=== PATIENT | male | born 1940 | race Caucasian/White ===

== ENCOUNTER 2017-06-27 20:22 | Emergency (ER) | payer MEDICARE, OTHER ==
[2017-06-27] MEDS ORDERED: MORPHINE SULFATE 2 MG INJ IV ONE (20:42)
[2017-06-27] MEDS ORDERED: BABY ASPIRIN 81 MG CHEW PO ONE (20:42)
--- NOTE | 2017-06-27 20:52 | ERPHSYRPT ---
- History of Present Illness Time Seen by Provider: 06/27/17 20:34 Historian: patient Exam Limitations: no limitations Patient Subjective Stated Complaint: CP x 45 mionutes. staes has been outside working all day. sdenies cough,fever. Triage Nursing Assessment: alert and oriented with onset CP 45 minutes [employer]. lungs clear vbilaterally. pain on palpation to right upper chest, non radiating. denies n/v diaphoresis. no swelling notes. Physician History: 76 y/o male with history of CAD with stents, bowel obstruction, HTN and DM comes to the ER with complaints of right sided chest pain that started 45 mins prior to arrival. Pt describes the pain as sharp, constant, 6/10, and not relieved after taking nitroglycerin. Pt has been off all of his meds, including ASA and plavix due to insurance reasons. Pt denies any fever, chills, shortness of breath, dizziness, palpitations, headache, nausea or vomiting. Timing/Duration: today Activities at Onset: none Quality: sharpness Location: other (right sided) Chest Pain Radiation: no radiation Severity of Pain-Max: moderate Severity of Pain-Current: moderate Modifying Factors: Improves With: nothing Associated Symptoms: denies symptoms Prior Chest Pain/Cardiac Workup: heart attack Nitro Today/Relief: 0.4 mg x 2, no relief Aspirin Treatment Today: no aspirin today Allergies/Adverse Reactions: cilastatin sodium [From Primaxin IV] Allergy (Severe, Verified 08/24/16 16:26) Hives codeine Allergy (Mild, Verified 08/24/16 16:26) imipenem [From Primaxin IV] Allergy (Mild, Verified 08/24/16 16:26) meperidine HCl [From Demerol] Allergy (Mild, Verified 08/24/16 16:26) Home Medications: Albuterol 2.5 mg/3 ml Neb [Proventil 2.5 mg/3 ml Neb] 2.5 mg IH UD PRN 07/18 [History] Albuterol Sulfate [Proair Hfa] 2 puff IH UD PRN 04/13/15 [History] Aspirin 81 gm Chew [Baby Aspirin 81 mg Chew] 81 mg PO DAILY 04/13/15 [ History] Atorvastatin Calcium [Lipitor 40Mg] 40 mg PO HS 04/13/15 [History] Fluticasone/Salmeterol Disc [Advair 250-50 Diskus 14 Dose] 1 each IH UD PRN 04/13/15 [History] Folic Acid 1 mg PO DAILY 04/13/15 [History] Furosemide [Lasix] 40 mg PO DAILY 04/13/15 [History] Metoprolol Succinate 50 mg [Toprol Xl 50 MG] 50 mg PO DAILY 04/13/15 [ History] Potassium Chloride 10 Meq Tab* [Klor Con 10 MEQ] 10 meq PO DAILY 04/13/15 [ History] Pramipexole Di-HCl [Mirapex] 0.5 mg PO UD 04/13/15 [History] Sitagliptin Phos/Metformin HCl [Janumet Xr 100-1,000 mg Tablet] 1 each PO HS 07/18 [History] Thiamine HCl 100 mg [Vitamin B-1 100 mg] 100 mg PO DAILY 04/13/15 [History ] Hx Tetanus, Diphtheria Vaccination/Date Given: Yes Hx Influenza Vaccination/Date Given: Yes Hx Pneumococcal Vaccination/Date Given: No Immunizations Up to Date: Yes - Review of Systems Constitutional: No Fever, No Chills Eyes: No Symptoms Ears, Nose, & Throat: No Symptoms Respiratory: No Cough, No Dyspnea Cardiac: Chest Pain, No Edema, No Palpitations, No Syncope, No Orthopnea Abdominal/Gastrointestinal: No Abdominal Pain, No Nausea, No Vomiting, No Diarrhea Genitourinary Symptoms: No Dysuria Musculoskeletal: No Back Pain, No Neck Pain Skin: No Rash Neurological: No Dizziness, No Focal Weakness, No Sensory Changes Psychological: No Symptoms Endocrine: No Symptoms All Other Systems: Reviewed and Negative - Past Medical History Pertinent Past Medical History: Yes Neurological History: Peripheral Neuropathy ENT History: No Pertinent History Cardiac History: Coronary Artery Disease Respiratory History: COPD, Other Endocrine Medical History: Other Musculoskeletal History: Fractures GI Medical History: Other (as notedhistory of present illness) History: No Pertinent History Psycho-Social History: Other (Alcohol use) Other Medical History: states stents x 3 and angioplasty - Past Surgical History Past Surgical History: Yes Neuro Surgical History: No Pertinent History Cardiac: Angioplasty, Cardiac Catheterization Respiratory: No Pertinent History Gastrointestinal: Colon Resection Genitourinary: No Pertinent History Musculoskeletal: Orthopedic Surgery Male Surgical History: No Pertinent History Other Surgical History: back surgery, - Social History Smoking Status: Never smoker Exposure to second hand smoke: No Alcohol Use: yes Drug Use: marijuana Patient Lives Alone: No Significant Family History: heart disease, hypertension - Nursing Vital Signs Nursing Vital Signs: Initial Vital Signs Pulse Rate 68 06/27/17 20:25 Respiratory Rate 18 06/27/17 20:25 Blood Pressure 148/68 06/27/17 20:25 O2 Sat by Pulse Oximetry 95 06/27/17 20:25 Pain Scale Pain Intensity 1 - Physical Exam General Appearance: no apparent distress, alert Eye Exam: PERRL/EOMI, eyes nml inspection Ears, Nose, Throat Exam: normal ENT inspection, moist mucous membranes Neck Exam: normal inspection, non-tender, supple, full range of motion Respiratory Exam: normal breath sounds, chest tenderness, lungs clear, No respiratory distress Cardiovascular Exam: regular rate/rhythm, normal heart sounds Gastrointestinal/Abdomen Exam: soft, No tenderness, No mass Back Exam: normal inspection, No CVA tenderness, No vertebral tenderness Extremity Exam: normal inspection, normal range of motion Neurologic Exam: alert, oriented x 3, cooperative, normal mood/affect, sensation nml, No motor deficits Skin Exam: normal color, warm, dry SpO2: 95 Oxygen Delivery: Room Air - Course Nursing assessment & vital signs reviewed: Yes EKG Interpreted by Me: RATE (HR 67), NORMAL AXIS, NORMAL INTERVALS, NORMAL QRS, NORMAL ST-T Ordered Tests: Active Orders 24 hr Category Date Time Status Statistics Tutor STAT Care 06/27/17 20:43 Active IV Insertion STAT Care 06/27/17 20:42 Active CHEST 1 VIEW (PORTABLE) Stat Exams 06/27/17 20:42 Taken CBC W DIFF Stat Lab 06/27/17 21:14 Completed CK-Creatinine Phosphokinase Stat Lab 06/27/17 21:14 Completed CMP Stat Lab 06/27/17 21:14 Completed D-DIMER QUANTITATION Stat Lab 06/27/17 21:14 Completed PROTIME WITH INR Stat Lab 06/27/17 21:14 Completed PTT Stat Lab 06/27/17 21:14 Completed TROPONIN Q3H Lab 06/27/17 21:14 Completed TROPONIN Q3H Lab 06/27/17 23:45 Ordered TROPONIN Q3H Lab 06/28/17 02:45 Ordered TROPONIN Q3H Lab 06/28/17 05:45 Ordered TROPONIN Q3H Lab 06/28/17 08:45 Ordered Medication Summary Discontinued Medications Generic Name Dose Route Start Last Admin Trade Name Ted PRN Reason Stop Dose Admin Aspirin 324 mg 06/27/17 20:42 06/27/17 21:03 Baby Aspirin 81 Mg Chew PO 06/27/17 20:43 324 mg STAT ONE Administration Aspirin Confirm 06/27/17 21:02 Baby Aspirin 81 Mg Chew Administered 06/27/17 21:03 Dose 324 mg .ROUTE .STK-MED ONE Morphine Sulfate 2 mg 06/27/17 20:42 06/27/17 21:03 Morphine Sulfate 2 Mg Inj IV 06/27/17 20:43 2 mg STAT ONE Administration Morphine Sulfate Confirm 06/27/17 21:02 Morphine Sulfate 2 Mg Inj Administered 06/27/17 21:03 Dose 2 mg .ROUTE .STK-MED ONE Lab/Rad Data: Laboratory Result Diagrams 06/27/17 21:14 06/27/17 21:14 Laboratory Results 06/27/17 06/27/17 06/27/17 Range/Units 21:14 21:14 21:14 WBC (4.0-10.5) K/mm3 RBC (4.1-5.6) M/mm3 Hgb (12.5-18.0) gm/dl Hct (42-50) % MCV (78-100) fl MCH (26-32) pg MCHC (32-36) g/dl RDW (11.5-14.0) % Plt Count (150-450) K/mm3 MPV (6-9.5) fl Gran % (36.0-66.0) % Lymphocytes % (24.0-44.0) % Monocytes % (0.0-12.0) % Eosinophils % (0.00-5.0) % Basophils % (0.0-0.4) % Basophils # (0-0.4) INR 1.01 (0.8-3.0) APTT 25.2 (24.1-36.1) SECONDS D-Dimer 436 (0-500) ng/mL Sodium 139 (136-145) mEq/L Potassium 4.5 (3.5-5.1) mEq/L Chloride 104 (98-107) mEq/L Carbon Dioxide 23.5 (21-32) mEq/L Anion Gap 16.0 H (5-15) MEQ/L BUN 14 (9-20) mg/dL Creatinine 1.06 (0.55-1.30) mg/dl Estimated GFR > 60 ML/MIN Glucose 114 H (70-110) MG/DL Calcium 9.0 (8.5-10.1) mg/dL Total Bilirubin 0.30 (0.2-1.0) mg/dL AST 26 (15-37) U/L ALT 45 (12-78) U/L Alkaline Phosphatase 124 H (46-116) U/L Creatine Kinase 327 H (39-308) U/L Troponin I < 0.017 (0.000-0.056) ng/ml Serum Total Protein 6.8 (6.4-8.2) gm/dL Albumin 3.8 (3.4-5.0) g/dL 06/27/ Range/Units 21:14 WBC 6.9 (4.0-10.5) K/mm3 RBC 5.10 (4.1-5.6) M/mm3 Hgb 16.6 (12.5-18.0) gm/dl Hct 49.4 (42-50) % MCV 96.9 (78-100) fl MCH 32.5 H (26-32) pg MCHC 33.6 (32-36) g/dl RDW 13.4 (11.5-14.0) % Plt Count 154 (150-450) K/mm3 MPV 10.7 H (6-9.5) fl Gran % 67.4 H (36.0-66.0) % Lymphocytes % 21.2 L (24.0-44.0) % Monocytes % 8.5 (0.0-12.0) % Eosinophils % 2.6 (0.00-5.0) % Basophils % 0.3 (0.0-0.4) % Basophils # 0.02 (0-0.4) INR (0.8-3.0) APTT (24.1-36.1) SECONDS D-Dimer (0-500) ng/mL Sodium (136-145) mEq/L Potassium (3.5-5.1) mEq/L Chloride (98-107) mEq/L Carbon Dioxide (21-32) mEq/L Anion Gap (5-15) MEQ/L BUN (9-20) mg/dL Creatinine (0.55-1.30) mg/dl Estimated GFR ML/MIN Glucose (70-110) MG/DL Calcium (8.5-10.1) mg/dL Total Bilirubin (0.2-1.0) mg/dL AST (15-37) U/L ALT (12-78) U/L Alkaline Phosphatase (46-116) U/L Creatine Kinase (39-308) U/L Troponin I (0.000-0.056) ng/ml Serum Total Protein (6.4-8.2) gm/dL Albumin (3.4-5.0) g/dL - Progress Progress: improved Progress Note: 06/27/17 22:00 Pt feels better after receiving ASA and morphine for right sided chest pain. The EKG and cardiac enzymes are within normal limits. Pt has tenderness on the right side of his chest which is atypical for coronary disease. Pt has been advised to F/U with his PCP tomorrow. Pt will be given a script for norco and ASA. I have advised the patient to return to the ER if he should have any chest pain. - Departure Time of Disposition: 22:02 Departure Disposition: Home Clinical Impression: Costochondritis Condition: Stable Critical Care Time: Yes Critical Care Time(excluding separately billable procedures): 30-74 minutes Referrals: JEFFERY CASE [Primary Care Provider] - Instructions: Atypical Chest Pain, Costochondritis Additional Instructions: Follow up with your primary care doctor in the morning to restart on your medications. Start taking baby aspirin every morning. Return to the ER if you should have any chest pain, shortness of breath, palpitations or dizziness. Prescriptions: Aspirin 81 gm Chew [Baby Aspirin 81 mg Chew] 81 mg PO DAILY #30 tab.chew Hydrocodone Bit/Acetaminophen [[place] 5-325 Tablet] 1 each PO QID PRN #10 tablet PRN Reason: Pain
[2017-06-27] MEDS ORDERED: BABY ASPIRIN 81 MG CHEW ONE (21:02)
[2017-06-27] MEDS ORDERED: MORPHINE SULFATE 2 MG INJ ONE (21:02)
[2017-06-27 21:21] LABS: BASOPHIL % 0.3 % (0.0-0.4); Eosinophil % 2.6 % (0.00-5.0); Granulocytes % 67.4 % (36.0-66.0); Lymphocytes % 21.2 % (24.0-44.0); Mean Cell Volume 96.9 fl (78-100); Mean Corpuscular Hemoglobin 32.5 pg (26-32); Mean Platelet Volume 10.7 fl (6-9.5); Monocytes % 8.5 % (0.0-12.0); Platelet Count 154 K/mm3 (150-450); Red Cell Distribution Width 13.4 % (11.5-14.0); White Blood Count 6.9 K/mm3 (4.0-10.5)
[2017-06-27 21:33] LABS: INR 1.01 (0.8-3.0); PROTIME 11.2 SECONDS (8.83-12.87)
[2017-06-27 21:36] LABS: PTT 25.2 SECONDS (24.1-36.1)
[2017-06-27 21:41] LABS: ALBUMIN 3.8 g/dL (3.4-5.0); ALKALINE PHOSPHATASE 124 U/L (46-116); BLOOD UREA NITROGEN 14 mg/dL (9-20); CHLORIDE 104 mEq/L (98-107); Carbon Dioxide 23.5 mEq/L (21-32); Glucose 114 MG/DL (70-110); Potassium 4.5 mEq/L (3.5-5.1); SGOT/AST 26 U/L (15-37); SGPT/ALT 45 U/L (12-78); SODIUM 139 mEq/L (136-145); Total Protein 6.8 gm/dL (6.4-8.2)
[2017-06-27 22:05] VITALS: O2SAT 95
[2017-06-27 22:27] VITALS: BP 134/78; PULSE 70
== END 2017-06-27 22:35 | disposition home or self-care (01) ==
LOC: ED 20:22
DX: M94.0 Chondrocostal junction syndrome [Tietze] (principal); I25.10 Atherosclerotic heart disease of native coronary artery without angina pectoris; I10 Essential (primary) hypertension; E11.9 Type 2 diabetes mellitus without complications; R07.89 Other chest pain; Z79.899 Other long term (current) drug therapy
CPT/HCPCS: 36000; 36415; 71010; 80053; 82550; 84484; 85025; 85379; 85610; 85730; 93041; 96374; 99284; J2270; A9270-GY

== ENCOUNTER 2017-10-28 16:05 | Emergency (ER) | payer MEDICARE, OTHER ==
--- NOTE | 2017-10-28 17:41 | ERPHSYRPT ---
- History of Present Illness Time Seen by Provider: 10/28/17 17:30 Source: patient Exam Limitations: no limitations Patient Subjective Stated Complaint: had abd hernia operation 10/19/17 at [facility]. has j/p drain that has quit draining today. [facility] nurse called patient' s surgeon and was instructed to come to er. family states sutures came out of upper abd incision and wound has been draining. also having some drainage from lower abd incision. Triage Nursing Assessment: to room per w/c. skin w/d, color normal. has dressing and binder to abd. dressing has moderate amt of serous drainage. denies any pain except slight soreness around j/p drain. Physician History: The patient is a 77-year-old male with his complaining of drainage from the abdominal hernia surgery he had on October 19. The surgery was done at [facility] by Dr. Rivas for repair of a hernia mesh that had become adherent to the patient's intestines. He had a TRAM drain placed that had been draining 50-70 mL twice a day. Since last night the TRAM drain has only drained 5 mL. Today when the home health nurse came to see the patient, there was significant amount of purulent material that was draining out of a dehisced wound at the suture site and mid abdomen. The patient called the surgeon at [facility] and was instructed to come to the ER for evaluation. The patient did see his surgeon 4 days ago. Timing/Duration: today Severity: moderate Modifying Factors: Improves With: nothing Associated Symptoms: other (wound drainage) Allergies/Adverse Reactions: cilastatin sodium [From Primaxin IV] Allergy (Severe, Verified 10/28/17 16:21) Hives codeine Allergy (Mild, Verified 10/28/17 16:21) imipenem [From Primaxin IV] Allergy (Mild, Verified 10/28/17 16:21) meperidine HCl [From Demerol] Allergy (Mild, Verified 10/28/17 16:21) Home Medications: Albuterol 2.5 mg/3 ml Neb [Proventil 2.5 mg/3 ml Neb] 2.5 mg IH UD PRN 07/18 [History] Albuterol Sulfate [Proair Hfa] 2 puff IH UD PRN 04/13/15 [History] Fluticasone/Salmeterol Disc [Advair 250-50 Diskus 14 Dose] 1 each IH UD PRN 04/13/15 [History] Pramipexole Di-HCl [Mirapex] 0.5 mg PO UD 04/13/15 [History] Cetirizine HCl [Zyrtec] 10 mg PO DAILY 10/28/17 [History] Hx Tetanus, Diphtheria Vaccination/Date Given: Yes Hx Influenza Vaccination/Date Given: Yes Hx Pneumococcal Vaccination/Date Given: Yes - Review of Systems Constitutional: No Fever, No Chills Eyes: No Symptoms Ears, Nose, & Throat: No Symptoms Respiratory: No Cough, No Dyspnea Cardiac: No Chest Pain, No Edema, No Syncope Abdominal/Gastrointestinal: No Abdominal Pain, No Nausea, No Vomiting, No Diarrhea Genitourinary Symptoms: No Dysuria Musculoskeletal: No Back Pain, No Neck Pain Skin: Skin Lesions Neurological: No Dizziness, No Focal Weakness, No Sensory Changes Psychological: No Symptoms Endocrine: No Symptoms Hematologic/Lymphatic: No Symptoms Immunological/Allergic: No Symptoms All Other Systems: Reviewed and Negative - Past Medical History Pertinent Past Medical History: Yes Neurological History: Peripheral Neuropathy ENT History: No Pertinent History Cardiac History: Coronary Artery Disease Respiratory History: COPD, Other Endocrine Medical History: Other Musculoskeletal History: Fractures GI Medical History: Other History: No Pertinent History Psycho-Social History: Other Other Medical History: states stents x 3 and angioplasty - Past Surgical History Past Surgical History: Yes Neuro Surgical History: No Pertinent History Cardiac: Angioplasty, Cardiac Catheterization Respiratory: No Pertinent History Gastrointestinal: Colon Resection Genitourinary: No Pertinent History Musculoskeletal: Orthopedic Surgery Male Surgical History: No Pertinent History Other Surgical History: back surgery, - Social History Smoking Status: Former smoker Exposure to second hand smoke: Yes Alcohol Use: yes Drug Use: marijuana Patient Lives Alone: No Significant Family History: heart disease, hypertension - Nursing Vital Signs Nursing Vital Signs: Initial Vital Signs Temperature 99.1 F 10/28/17 16:16 Pulse Rate 70 10/28/17 16:16 Respiratory Rate 20 10/28/17 16:16 Blood Pressure 111/62 10/28/17 16:16 O2 Sat by Pulse Oximetry 98 10/28/17 16:16 Pain Scale Pain Intensity 0 - Physical Exam General Appearance: no apparent distress, alert Eye Exam: PERRL/EOMI, eyes nml inspection Ears, Nose, Throat Exam: normal ENT inspection, TMs normal, pharynx normal, moist mucous membranes Neck Exam: normal inspection, non-tender, supple, full range of motion Respiratory Exam: normal breath sounds, lungs clear, No respiratory distress Cardiovascular Exam: regular rate/rhythm, normal heart sounds, normal peripheral pulses Gastrointestinal/Abdomen Exam: tenderness, other (There is a large surgical wound of a vertical incision in the mid abdomen that has a open draining wound in the superior aspect of the surgical wound. The drainage is purulent and has a odor to it. There is also some drainage at the dependent portion of the wound through the suture holes. When pressure is applied to the dependent portion of the wound copious amounts of purulent material are expelled from the open wound.) Rectal Exam: not done Back Exam: normal inspection, normal range of motion, No CVA tenderness, No vertebral tenderness Extremity Exam: normal inspection, normal range of motion, pelvis stable Neurologic Exam: alert, oriented x 3, cooperative, normal mood/affect, nml cerebellar function, nml station & gait, sensation nml, No motor deficits Skin Exam: normal color, warm, dry, No rash Lymphatic Exam: No adenopathy SpO2 Interpretation: normal SpO2: 98 Oxygen Delivery: Room Air - CT Exams Abdomen/Pelvis CT Interpretation: Tele-radiologist Report (Post operative changes from prior anterior wall surgery are seen percutaneous drain is identified without evidence of abscess cavity. 4.7 cm poorly defined mass in the anterior right lobe of the liver that was previously described as a hemangioma. Per Dr Ramachandran.) Ordered Tests: Active Orders 24 hr Category Date Time Status IV Insertion STAT Care 10/28/17 17:48 Active ABDOMEN AND PELVIS W/0 CONTRAS [CT] Stat Exams 10/28/17 17:48 Taken BLOOD CULTURE Stat Lab 10/28/17 18:20 Received CBC W DIFF Stat Lab 10/28/17 18:20 Completed CMP Stat Lab 10/28/17 18:20 Completed CULTURE,WOUND Stat Lab 10/28/17 18:27 Received Lactic Acid Stat Lab 10/28/17 18:10 Completed Medication Summary Discontinued Medications Generic Name Dose Route Start Last Admin Trade Name Freq PRN Reason Stop Dose Admin Sodium Chloride 1,000 mls @ 999 mls/hr 10/28/17 17:48 10/28/17 18:18 Sodium Chloride 0.9% 1000 Ml IV 10/28/17 18:48 999 mls/hr .Q1H1M STA Administration Piperacillin Sod/Tazobactam Sod 3.375 gm in 100 mls @ 200 mls/hr 10/28/17 17: 49 10/28/17 18:18 Zosyn 3.375gm/100 Ml D5w IV 10/28/17 18:18 200 mls/hr STAT STA Administration Sodium Chloride Confirm 10/28/17 18:12 Sodium Chloride 0.9% 1000 Ml Administered 10/28/17 18:13 Dose 1,000 mls @ ud .ROUTE .STK-MED ONE Piperacillin Sod/Tazobactam Sod Confirm 10/28/17 18:12 Zosyn 3.375gm/100 Ml D5w Administered 10/28/17 18:13 Dose 3.375 gm in 100 mls @ ud IV .STK-MED ONE Lab/Rad Data: Laboratory Result Diagrams 10/28/17 18:20 10/28/17 18:20 Laboratory Results 10/28/17 10/28/17 10/28/17 Range/Units 18:20 18:20 18:10 WBC 7.2 (4.0-10.5) K/mm3 RBC 4.08 L (4.1-5.6) M/mm3 Hgb 12.9 (12.5-18.0) gm/dl Hct 39.4 L (42-50) % MCV 96.6 (78-100) fl MCH 31.6 (26-32) pg MCHC 32.7 (32-36) g/dl RDW 12.9 (11.5-14.0) % Plt Count 240 (150-450) K/mm3 MPV 9.7 H (6-9.5) fl Gran % 63.8 (36.0-66.0) % Lymphocytes % 19.3 L (24.0-44.0) % Monocytes % 11.1 (0.0-12.0) % Eosinophils % 5.4 H (0.00-5.0) % Basophils % 0.4 (0.0-0.4) % Basophils # 0.03 (0-0.4) Sodium 141 (136-145) mEq/L Potassium 4.2 (3.5-5.1) mEq/L Chloride 105 (98-107) mEq/L Carbon Dioxide 27.9 (21-32) mEq/L Anion Gap 12.6 (5-15) MEQ/L BUN 12 (9-20) mg/dL Creatinine 1.18 (0.55-1.30) mg/dl Estimated GFR > 60 ML/MIN Glucose 121 H (70-110) MG/DL Lactic Acid 0.9 (0.4-2.0) Calcium 8.4 L (8.5-10.1) mg/dL Total Bilirubin 0.70 (0.2-1.0) mg/dL AST 51 H (15-37) U/L ALT 88 H (12-78) U/L Alkaline Phosphatase 180 H (46-116) U/L Serum Total Protein 6.7 (6.4-8.2) gm/dL Albumin 2.6 L (3.4-5.0) g/dL - Progress Progress: unchanged Counseled pt/family regarding: lab results, diagnosis, rad results - Departure Time of Disposition: 20:14 Departure Disposition: Transfer (Transfer to [facility] per Dr Martinez.) Clinical Impression: Surgical wound infection Condition: Stable Critical Care Time: No Referrals: JEFFERY CASE [Primary Care Provider] - Additional Instructions: You have a surgical wound infection. You were given Zosyn 3.375 g and fluids by IV in the ER. You're being transferred to [facility] per Dr. Martinez.
[2017-10-28] MEDS ORDERED: Sodium Chloride 0.9% 1000 ML 1,000 ML IV STA (17:48)
[2017-10-28] MEDS ORDERED: Zosyn 3.375GM/100 Ml D5W 3.375 GM/100 ML IVPB IV STA (17:49)
[2017-10-28] MEDS ORDERED: Zosyn 3.375GM/100 Ml D5W 3.375 GM/100 ML IVPB IV ONE (18:12)
[2017-10-28] MEDS ORDERED: Sodium Chloride 0.9% 1000 ML 1,000 ML ONE (18:12)
[2017-10-28 18:24] LABS: BASOPHIL % 0.4 % (0.0-0.4); Basophil (Absolute #) 0.03 (0-0.4); Eosinophil % 5.4 % (0.00-5.0); Eosinophil (Absolute #) 0.39 (0-0.5); Granulocyte Absolute (ANC) 4.59 (1.4-6.9); Granulocytes % 63.8 % (36.0-66.0); Hematocrit 39.4 % (42-50); Hemoglobin 12.9 gm/dl (12.5-18.0); Lymphocyte (Absolute #) 1.39 (1.0-4.6); Lymphocytes % 19.3 % (24.0-44.0); Mean Cell Volume 96.6 fl (78-100); Mean Corpuscular Hemoglobin 31.6 pg (26-32); Mean Corpuscular Hgb Concent. 32.7 g/dl (32-36); Mean Platelet Volume 9.7 fl (6-9.5); Monocytes % 11.1 % (0.0-12.0); Platelet Count 240 K/mm3 (150-450); Red Blood Count 4.08 M/mm3 (4.1-5.6); Red Cell Distribution Width 12.9 % (11.5-14.0); White Blood Count 7.2 K/mm3 (4.0-10.5)
[2017-10-28 18:52] LABS: ALBUMIN 2.6 g/dL (3.4-5.0); ALKALINE PHOSPHATASE 180 U/L (46-116); ANION GAP 12.6 MEQ/L (5-15); BLOOD UREA NITROGEN 12 mg/dL (9-20); CHLORIDE 105 mEq/L (98-107); Calcium 8.4 mg/dL (8.5-10.1); Carbon Dioxide 27.9 mEq/L (21-32); Creatinine 1 1.18 mg/dl (0.55-1.30); Glucose 121 MG/DL (70-110); Potassium 4.2 mEq/L (3.5-5.1); SGOT/AST 51 U/L (15-37); SGPT/ALT 88 U/L (12-78); SODIUM 141 mEq/L (136-145); Total Protein 6.7 gm/dL (6.4-8.2)
--- NOTE | 2017-10-28 21:19 | XRAY ---
Indication: Suture line pain. Multiple contiguous axial images obtained through the abdomen and pelvis without contrast as ordered. Comparison: August 24, 2016. Lung bases demonstrates minimal bibasilar dependent atelectasis and left fissure thickening. No infiltrate or effusion. Heart is not enlarged. New anterior abdominal wall postoperative changes including percutaneous drainage catheter in situ without walled off fluid collection/abscess. Noncontrasted stomach and bowel loops appear nonobstructed. Again right hemicolectomy with intact anastomosis. No free fluid/air. Again minimal sigmoid diverticulosis. There is a hepatic hypodense lesion in the right lobe of the liver measuring 3.8 x 4.7 cm, previously documented hemangioma. Again a few hepatic/splenic calcified granulomas and small bilateral renal cysts. Remaining liver, gallbladder, pancreas, spleen, adrenal glands, kidneys, ureters, and bladder appear unremarkable for noncontrast exam. There remains mild aortoiliac calcifications without AAA. Osseous structures intact again with mild/moderate degenerative changes throughout the spine and scoliosis. Stable small fatty bilateral inguinal hernias. Impression: 1. New anterior abdominal wall postsurgical changes with drainage catheter in situ. No suspicious fluid collection or abscess. 2. Stable hepatic hemangioma, sigmoid diverticulosis, renal cysts, and small bilateral fatty inguinal hernias. Comment: Preliminary interpretation was made by [facility]. No critical discrepancy. CTDI 23.30
[2017-10-28 22:06] VITALS: BP 132/70; PULSE 72; O2SAT 96
[2017-10-28] MEDS ORDERED: MORPHINE SULFATE 4 MG INJ ONE (22:08)
[2017-10-28] MEDS ORDERED: MORPHINE SULFATE 4 MG INJ IV ONE (22:10)
== END 2017-10-28 22:15 | disposition short-term general hospital (02) ==
LOC: ED 16:05
DX: T81.4XXA Infection following a procedure, initial encounter (principal); Z79.899 Other long term (current) drug therapy
CPT/HCPCS: 36000; 36415; 74176; 80053; 83605; 85025; 87040; 87070; 87077; 87186; 96365; 96374; 99284; 99285; J2270; J2543

== ENCOUNTER 2018-04-06 18:32 | Emergency (ER) | payer MEDICARE, OTHER ==
[2018-04-06] MEDS ORDERED: Rocephin 1000 MG INJ IM ONE (19:25)
--- NOTE | 2018-04-06 19:30 | ERPHSYRPT ---
- History of Present Illness Time Seen by Provider: 04/06/18 19:24 Source: patient Exam Limitations: no limitations Patient Subjective Stated Complaint: pt reports he was bitten on the left knee by a bug of some kind-reports swelling-denies pain-denies draiange-denies fever Triage Nursing Assessment: pt pink warm and [id number] to left knee is swollen nontender to touch-pt ambulatory and weight bearing with no difficutly Physician History: patient presents with skin lesion above right knee for last 2 days. Patient unsure but thought he might have been bitten by insect. States increased redness, swelling and discomfort over past 2 days. Able to move right knee without difficulty. Denies any fever, chills, nausea, vomiting, dizziness or weakness. Patient has been using wound salve on area Timing/Duration: day(s) (2), gradual onset, worse Quality: painful Severity: mild Location: other (R knee) Possible Causes: insect bite Modifying Factors: Improves With: other (wound salve) Associated Symptoms: change in skin texture, other (erythematous), No blisters Allergies/Adverse Reactions: cilastatin sodium [From Primaxin IV] Allergy (Severe, Verified 04/06/18 18:51) Hives vancomycin Allergy (Severe, Verified 04/06/18 18:51) Swelling of Face codeine Allergy (Mild, Verified 04/06/18 18:51) imipenem [From Primaxin IV] Allergy (Mild, Verified 04/06/18 18:51) meperidine HCl [From Demerol] Allergy (Mild, Verified 04/06/18 18:51) Home Medications: Albuterol 2.5 mg/3 ml Neb [Proventil 2.5 mg/3 ml Neb] 2.5 mg IH UD PRN 07/18 [History] Albuterol Sulfate [Proair Hfa] 2 puff IH UD PRN 04/13/15 [History] Fluticasone/Salmeterol Disc [Advair 250-50 Diskus 14 Dose] 1 each IH UD PRN 04/13/15 [History] Pramipexole Di-HCl [Mirapex] 0.5 mg PO UD 04/13/15 [History] Cetirizine HCl [Zyrtec] 10 mg PO DAILY 10/28/17 [History] Hx Tetanus, Diphtheria Vaccination/Date Given: Yes Hx Influenza Vaccination/Date Given: Yes Hx Pneumococcal Vaccination/Date Given: Yes Immunizations Up to Date: Yes - Review of Systems Constitutional: No Fever, No Chills Eyes: No Symptoms Ears, Nose, & Throat: No Symptoms Respiratory: No Symptoms, No Cough, No Dyspnea Cardiac: No Symptoms, No Chest Pain, No Edema, No Syncope Abdominal/Gastrointestinal: No Symptoms, No Abdominal Pain, No Nausea, No Vomiting, No Diarrhea Genitourinary Symptoms: No Symptoms, No Dysuria Musculoskeletal: No Symptoms, No Back Pain, No Neck Pain Skin: Cellulitis, No Rash Neurological: No Dizziness, No Focal Weakness, No Sensory Changes Psychological: No Symptoms Endocrine: No Symptoms All Other Systems: Reviewed and Negative - Past Medical History Pertinent Past Medical History: Yes Neurological History: Peripheral Neuropathy ENT History: No Pertinent History Cardiac History: Coronary Artery Disease Respiratory History: COPD, Other Endocrine Medical History: Other Musculoskeletal History: Fractures GI Medical History: Other History: No Pertinent History Psycho-Social History: Other Male Reproductive Disorders: No Pertinent History Other Medical History: states stents x 3 and angioplasty. restless legs. 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 neck and back fx. borderline diabetic - Past Surgical History Past Surgical History: Yes Neuro Surgical History: No Pertinent History Cardiac: Angioplasty, Cardiac Catheterization Respiratory: No Pertinent History Gastrointestinal: Colon Resection, Other Genitourinary: No Pertinent History Musculoskeletal: Orthopedic Surgery Male Surgical History: No Pertinent History Other Surgical History: back surgery, several abdominal surgeries over 8 years - Social History Smoking Status: Former smoker Exposure to second hand smoke: Yes Alcohol Use: yes Drug Use: none Patient Lives Alone: No Significant Family History: heart disease, hypertension - Nursing Vital Signs Nursing Vital Signs: Initial Vital Signs Temperature 98.7 F 04/06/18 18:48 Pulse Rate 82 04/06/18 18:48 Respiratory Rate 18 04/06/18 18:48 Blood Pressure 144/80 04/06/18 18:48 O2 Sat by Pulse Oximetry 97 04/06/18 18:48 Pain Scale Pain Intensity 0 - Physical Exam General Appearance: no apparent distress, alert Eye Exam: PERRL/EOMI, eyes nml inspection Ears, Nose, Throat Exam: normal ENT inspection, pharynx normal, moist mucous membranes Neck Exam: normal inspection, non-tender, supple, full range of motion Respiratory Exam: normal breath sounds, lungs clear, No respiratory distress Cardiovascular Exam: regular rate/rhythm, normal heart sounds Gastrointestinal/Abdomen Exam: soft, mass, No tenderness Back Exam: normal inspection, normal range of motion, No CVA tenderness, No vertebral tenderness Extremity Exam: normal range of motion, swelling (area approximately 1 cm in diameter above right knee area), tenderness (above right knee area), No limited range of motion Neurologic Exam: alert, oriented x 3, cooperative, normal mood/affect, sensation nml, No motor deficits Skin Exam: normal color, warm, dry, other (raised skin lesion above right knee approximately 1 cm in diameter with surrounding erythema and mild tenderness) SpO2 Interpretation: normal SpO2: 97 Oxygen Delivery: Room Air - Course Nursing assessment & vital signs reviewed: Yes - Progress Progress: unchanged Progress Note: 04/06/18 19:31 we'll give patient Rocephin 1 g IM. We'll prescribe Bactrim/Keflex as outpatient therapy Counseled pt/family regarding: diagnosis - Departure Time of Disposition: 19:32 Departure Disposition: Home Clinical Impression: Cellulitis of right knee Condition: Stable Critical Care Time: No Referrals: JEFFERY CASE [Primary Care Provider] - Instructions: Wound Infection, Cellulitis (Skin Infection), Adult (DC) Additional Instructions: Rx: Bactrim DS/Keflex. May take Motrin/Tylenol for discomfort and fever. Follow-up with your doctor in 2-3 days. Return to ED for worse swelling, redness, pain, fever or any problems Prescriptions: Cephalexin Mh 500 mg [Keflex 500 mg] 500 mg PO QID #40 capsule Sulfamethoxazole/Trimethoprim [Bactrim Ds Tablet] 1 each PO BID 10 Days #20 tablet
[2018-04-06] MEDS ORDERED: Rocephin 1000 MG INJ ONE (19:34)
[2018-04-06 20:07] VITALS: BP 118/93; PULSE 78; O2SAT 95
== END 2018-04-06 20:05 | disposition home or self-care (01) ==
LOC: ED 18:32
DX: L03.115 Cellulitis of right lower limb (principal)
CPT/HCPCS: 96372; 99283; J0696

== ENCOUNTER 2018-06-28 22:39 | Inpatient (IN) | payer MEDICARE, OTHER ==
[2018-06-28] MEDS ORDERED: Sodium Chloride 0.9% 1000 ML 1,000 ML IV SCH (23:15)
[2018-06-28] MEDS ORDERED: Sodium Chloride 0.9% 1000 ML 1,000 ML ONE (23:15)
--- NOTE | 2018-06-28 23:20 | ERPHSYRPT ---
- History of Present Illness Time Seen by Provider: 06/28/18 22:50 Historian: patient Exam Limitations: clinical condition Patient Subjective Stated Complaint: pt is alert and oriented. pt is ambulatory. pt comes in with c/o abd pain to the lower abdomen. pt denies n/v/ d. pt states that the pain is "crampy". bowel sounds present x4. pt has numerous scars on abd from previous surgeries and a possible herniated area. Triage Nursing Assessment: see above Physician History: PATIENT WITH A HISTORY OF CORONARY ARTERY DISEASE, 3 STENTS INSERTION, MULTIPLE ABDOMNAL SURGERIES SECONDARY TO CHRONIC INFECTIONS AND HERNIAS. PATIENT COMPLAINS OF ABDOMINAL PAIN SINCE NOON TODAY. DENIES NAUSEA, EMESIS, DIARRHEA, FEVER OR URINARY SYMPTOMS. Timing/Duration: today Activities at Onset: none Quality: cramping, sharpness Abdominal Pain Onset Location: periumbilical Pain Radiation: no radiation Severity of Pain-Max: moderate Severity of Pain-Current: moderate Modifying Factors: Improves With: nothing Associated Symptoms: denies symptoms Previous symptoms: same symptoms as today Allergies/Adverse Reactions: cilastatin sodium [From Primaxin IV] Allergy (Severe, Verified 06/27/18 16:34) Hives vancomycin Allergy (Severe, Verified 06/27/18 16:34) Swelling of Face codeine Allergy (Mild, Verified 06/27/18 16:34) imipenem [From Primaxin IV] Allergy (Mild, Verified 06/27/18 16:34) meperidine HCl [From Demerol] Allergy (Mild, Verified 06/27/18 16:34) Home Medications: Albuterol 2.5 mg/3 ml Neb [Proventil 2.5 mg/3 ml Neb] 2.5 mg IH UD PRN 07/18 [History] Albuterol Sulfate [Proair Hfa] 2 puff IH UD PRN 04/13/15 [History] Fluticasone/Salmeterol Disc [Advair 250-50 Diskus 14 Dose] 1 each IH UD PRN 04/13/15 [History] Pramipexole Di-HCl [Mirapex] 0.5 mg PO UD 04/13/15 [History] Cetirizine HCl [Zyrtec] 10 mg PO DAILY 10/28/17 [History] Amoxicillin [Amoxil] 500 mg PO DAILY 06/28/18 [History] Hx Tetanus, Diphtheria Vaccination/Date Given: Yes Hx Influenza Vaccination/Date Given: Yes Hx Pneumococcal Vaccination/Date Given: Yes Immunizations Up to Date: Yes - Review of Systems Constitutional: No Fever, No Chills Eyes: No Symptoms Ears, Nose, & Throat: No Symptoms Respiratory: No Symptoms, No Cough, No Dyspnea Cardiac: No Chest Pain, No Edema, No Syncope Abdominal/Gastrointestinal: Abdominal Pain, No Nausea, No Vomiting, No Diarrhea Genitourinary Symptoms: No Symptoms, No Dysuria Musculoskeletal: No Symptoms, No Back Pain, No Neck Pain Skin: No Symptoms, No Rash Neurological: No Dizziness, No Focal Weakness, No Sensory Changes Psychological: No Symptoms Endocrine: No Symptoms All Other Systems: Reviewed and Negative - Past Medical History Pertinent Past Medical History: Yes Neurological History: Peripheral Neuropathy ENT History: No Pertinent History Cardiac History: Coronary Artery Disease Respiratory History: Other, COPD Endocrine Medical History: Other Musculoskeletal History: Fractures GI Medical History: Other History: No Pertinent History Psycho-Social History: Other Male Reproductive Disorders: No Pertinent History Other Medical History: states stents x 3 and angioplasty. restless legs. 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 neck and back fx. borderline diabetic - Past Surgical History Past Surgical History: Yes Neuro Surgical History: No Pertinent History Cardiac: Angioplasty, Cardiac Catheterization Respiratory: No Pertinent History Gastrointestinal: Colon Resection, Other Genitourinary: No Pertinent History Musculoskeletal: Orthopedic Surgery Male Surgical History: No Pertinent History Other Surgical History: back surgery, several abdominal surgeries over 8 years - Social History Smoking Status: Former smoker Exposure to second hand smoke: Yes Alcohol Use: yes Drug Use: none Patient Lives Alone: No Significant Family History: heart disease, hypertension - Nursing Vital Signs Nursing Vital Signs: Initial Vital Signs Temperature 97.9 F 06/28/18 22:39 Pulse Rate 75 06/28/18 22:39 Respiratory Rate 20 06/28/18 22:39 Blood Pressure 135/77 06/28/18 22:39 O2 Sat by Pulse Oximetry 97 06/28/18 22:39 Pain Scale Pain Intensity 7 - Physical Exam General Appearance: no apparent distress, alert Eye Exam: PERRL/EOMI, eyes nml inspection Ears, Nose, Throat Exam: normal ENT inspection, pharynx normal, moist mucous membranes Neck Exam: normal inspection, non-tender, supple, full range of motion Respiratory Exam: normal breath sounds, lungs clear, No respiratory distress Cardiovascular Exam: regular rate/rhythm, normal heart sounds Gastrointestinal/Abdomen Exam: soft, tenderness (HYPOACTIVE BOWEL SOUNDS, PERIUMBILICAL TENDERNESS, LARGE HERNIA RIGHT LATERAL TO UMBILICUS), No mass Back Exam: normal inspection, normal range of motion, No CVA tenderness, No vertebral tenderness Extremity Exam: normal inspection, normal range of motion, pelvis stable Neurologic Exam: alert, oriented x 3, cooperative, normal mood/affect, nml cerebellar function, sensation nml, No motor deficits Skin Exam: normal color, warm, dry SpO2 Interpretation: normal SpO2: 97 Oxygen Delivery: Room Air - CT Exams Abdomen/Pelvis CT Interpretation: Tele-radiologist Report (SMALL BOWEL OBSTRUCTION WITHOUT DISCRETE TRANSITION POINT SEEN, SEVERAL BILATERAL RENAL CYST MEASURING UP TO 2.4CM) Ordered Tests: Active Orders 24 hr Category Date Time Status Up Ad Yelitza ROUTINE Activity 06/29/18 01:47 Active Call Admit Doctor for Orders ON ADMISSION Care 06/29/18 01:46 Active Clean Catch Urine Specimen STAT Care 06/28/18 23:10 Active Code Status Order ROUTINE Care 06/29/18 01:45 Active IV Care Q6H Care 06/29/18 01:45 Active IV Insertion STAT Care 06/28/18 23:[address] in Observation ROUTINE Care 06/29/18 01:45 Active Vital Signs Q4H Care 06/29/18 01:45 Active NPO except Meds Diet 06/29/18 02:00 Active ABDOMEN AND PELVIS W CONTRAST [CT] Stat Exams 06/28/18 23:11 Taken AMYLASE Stat Lab 06/28/18 23:00 Completed BLOOD CULTURE Stat Lab 06/28/18 23:45 Received CBC W DIFF Stat Lab 06/28/18 23:00 Completed CMP Stat Lab 06/28/18 23:00 Completed LIPASE Stat Lab 06/28/18 23:00 Completed PT INR [PROTIME WITH INR] Stat Lab 06/28/18 23:00 Completed UA W/RFX UR CULTURE Stat Lab 06/28/18 23:00 Completed Transfer Order Routine Transfer 06/29/18 Ordered Medication Summary Generic Name Dose Route Start Last Admin Trade Name Freq PRN Reason Stop Dose Admin Acetaminophen 650 mg 06/29/18 01:45 Tylenol 325 Mg PO 07/29/18 01:44 Q4H PRN PRN PAIN AND/OR FEVER Albuterol/Ipratropium 3 ml 06/29/18 01:45 Duoneb 0.5-3 Mg/3 Ml Neb IH 07/29/18 01:44 Q4HPRN PRN SHORTNESS OF BREATH/WHEEZING Sodium Chloride 1,000 mls @ 250 mls/hr 06/28/18 23:15 06/28/18 23:20 Sodium Chloride 0.9% 1000 Ml IV 07/28/18 23:14 250 mls/hr .Q4H MEME Administration Sodium Chloride 1,000 mls @ 100 mls/hr 06/29/18 01:45 Sodium Chloride 0.9% 1000 Ml IV 07/29/18 01:44 .Q10H MEME Morphine Sulfate 4 mg 06/29/18 01:45 Morphine Sulfate 4 Mg Inj IV 07/04/18 01:44 Q4H PRN PRN PAIN Pantoprazole Sodium 40 mg 06/29/18 10:00 Protonix 40 Mg Iv IV 07/29/18 09:59 Q24H10 MEME Discontinued Medications Generic Name Dose Route Start Last Admin Trade Name Freq PRN Reason Stop Dose Admin Morphine Sulfate 6 mg 06/28/18 23:55 06/29/18 00:05 Morphine Sulfate 10 Mg/Ml IV 06/28/18 23:56 6 mg STAT ONE Administration Morphine Sulfate Confirm 06/29/18 00:03 Morphine Sulfate 4 Mg Inj Administered 06/29/18 00:04 Dose 4 mg .ROUTE .STK-MED ONE Morphine Sulfate Confirm 06/29/18 00:05 Morphine Sulfate 10 Mg/Ml Administered 06/29/18 00:06 Dose 10 mg .ROUTE .STK-MED ONE Ondansetron HCl 4 mg 06/28/18 23:55 06/28/18 23:59 Zofran 4 Mg/2 Ml Vial IV 06/28/18 23:56 4 mg STAT ONE Administration Ondansetron HCl Confirm 06/28/18 23:58 Zofran 4 Mg/2 Ml Vial Administered 06/28/18 23:59 Dose 4 mg .ROUTE .STK-MED ONE Lab/Rad Data: Laboratory Result Diagrams 06/28/18 23:00 10/26/18 23:00 Laboratory Results 06/28/18 06/28/18 06/28/18 Range/Units 23:00 23:00 23:00 WBC (4.0-10.5) K/mm3 RBC (4.1-5.6) M/mm3 Hgb (12.5-18.0) gm/dl Hct (42-50) % MCV (78-100) fl MCH (26-32) pg MCHC (32-36) g/dl RDW (11.5-14.0) % Plt Count (150-450) K/mm3 MPV (6-9.5) fl Gran % (36.0-66.0) % Eos # (Auto) (0-0.5) Absolute Lymphs (auto) (1.0-4.6) Absolute Monos (auto) (0.0-1.3) Lymphocytes % (24.0-44.0) % Monocytes % (0.0-12.0) % Eosinophils % (0.00-5.0) % Basophils % (0.0-0.4) % Absolute Granulocytes (1.4-6.9) Basophils # (0-0.4) PT 12.1 (8.83-12.87) SECONDS INR 1.04 (0.8-3.0) Sodium 137 (137-145) mmol/L Potassium 4.5 (3.5-5.1) mmol/L Chloride 104 (98-107) mmol/L Carbon Dioxide 22 (22-30) mmol/L Anion Gap 15.2 H (5-15) MEQ/L BUN 19 (9-20) mg/dL Creatinine 1.11 (0.66-1.25) mg/dL Estimated GFR > 60.0 ML/MIN Glucose 104 (74-106) mg/dL Calcium 10.0 (8.4-10.2) mg/dL Total Bilirubin 0.70 (0.2-1.3) mg/dL AST 26 (17-59) U/L ALT 33 (0-50) U/L Alkaline Phosphatase 144 H (38-126) U/L Serum Total Protein 8.1 (6.3-8.2) g/dL Albumin 4.8 (3.5-5.0) g/dL Amylase 80 (30-110) U/L Lipase 40 (23-300) U/L Urine Color YELLOW (YELLOW) Urine Appearance CLOUDY (CLEAR) Urine pH 5.0 (5-6) Ur Specific [place] 1.023 (1.005-1.025) Urine Protein NEGATIVE (Negative) Urine Ketones NEGATIVE (NEGATIVE) Urine Blood NEGATIVE (0-5) Dilshad/ul Urine Nitrite NEGATIVE (NEGATIVE) Urine Bilirubin NEGATIVE (NEGATIVE) Urine Urobilinogen NEGATIVE (0-1) mg/dL Ur Leukocyte Esterase NEGATIVE (NEGATIVE) Urine WBC (Auto) 0-2 (0-5) /HPF Urine RBC (Auto) NONE (0-2) /HPF U Epithel Cells (Auto) RARE (FEW) /HPF Urine Mucus (Auto) SLIGHT (NEGATIVE) /HPF Urine Culture Reflexed NO (NO) Urine Glucose NEGATIVE (NEGATIVE) mg/dL 06/28/18 Range/Units 23:00 WBC 9.3 (4.0-10.5) K/mm3 RBC 5.60 (4.1-5.6) M/mm3 Hgb 18.1 H (12.5-18.0) gm/dl Hct 53.3 H (42-50) % MCV 95.2 (78-100) fl MCH 32.3 H (26-32) pg MCHC 34.0 (32-36) g/dl RDW 13.5 (11.5-14.0) % Plt Count 281 (150-450) K/mm3 MPV 9.9 H (6-9.5) fl Gran % 79.5 H (36.0-66.0) % Eos # (Auto) 0.09 (0-0.5) Absolute Lymphs (auto) 1.25 (1.0-4.6) Absolute Monos (auto) 0.54 (0.0-1.3) Lymphocytes % 13.5 L (24.0-44.0) % Monocytes % 5.8 (0.0-12.0) % Eosinophils % 1.0 (0.00-5.0) % Basophils % 0.2 (0.0-0.4) % Absolute Granulocytes 7.36 H (1.4-6.9) Basophils # 0.02 (0-0.4) PT (8.83-12.87) SECONDS INR (0.8-3.0) Sodium (137-145) mmol/L Potassium (3.5-5.1) mmol/L Chloride (98-107) mmol/L Carbon Dioxide (22-30) mmol/L Anion Gap (5-15) MEQ/L BUN (9-20) mg/dL Creatinine (0.66-1.25) mg/dL Estimated GFR ML/MIN Glucose (74-106) mg/dL Calcium (8.4-10.2) mg/dL Total Bilirubin (0.2-1.3) mg/dL AST (17-59) U/L ALT (0-50) U/L Alkaline Phosphatase (38-126) U/L Serum Total Protein (6.3-8.2) g/dL Albumin (3.5-5.0) g/dL Amylase (30-110) U/L Lipase (23-300) U/L Urine Color (YELLOW) Urine Appearance (CLEAR) Urine pH (5-6) Ur Specific [place] (1.005-1.025) Urine Protein (Negative) Urine Ketones (NEGATIVE) Urine Blood (0-5) Dilshad/ul Urine Nitrite (NEGATIVE) Urine Bilirubin (NEGATIVE) Urine Urobilinogen (0-1) mg/dL Ur Leukocyte Esterase (NEGATIVE) Urine WBC (Auto) (0-5) /HPF Urine RBC (Auto) (0-2) /HPF U Epithel Cells (Auto) (FEW) /HPF Urine Mucus (Auto) (NEGATIVE) /HPF Urine Culture Reflexed (NO) Urine Glucose (NEGATIVE) mg/dL - Progress Progress Note: 06/29/18 01:41 IV NORMAL SALINE 250ML/HR, ZOFRAN 4MG, MORPHINE 6MG IV Discussed with .: Mina Will see patient in: hospital (observation) (DISCUSSED WITH DR PIMENTEL AT 0130 FOR OBSERVATION) - Departure Time of Disposition: 01:55 Departure Disposition: Observation Clinical Impression: SMALL BOWEL OBSTRUCTION Condition: Stable Critical Care Time: No Referrals: JEFFERY CASE [Primary Care Provider] -
[2018-06-28 23:35] LABS: BASOPHIL % 0.2 % (0.0-0.4); Basophil (Absolute #) 0.02 (0-0.4); Eosinophil (Absolute #) 0.09 (0-0.5); Granulocyte Absolute (ANC) 7.36 (1.4-6.9); Granulocytes % 79.5 % (36.0-66.0); Hematocrit 53.3 % (42-50); Hemoglobin 18.1 gm/dl (12.5-18.0); Lymphocyte (Absolute #) 1.25 (1.0-4.6); Lymphocytes % 13.5 % (24.0-44.0); Mean Cell Volume 95.2 fl (78-100); Mean Corpuscular Hemoglobin 32.3 pg (26-32); Mean Platelet Volume 9.9 fl (6-9.5); Monocyte (Absolute #) 0.54 (0.0-1.3); Monocytes % 5.8 % (0.0-12.0); Platelet Count 281 K/mm3 (150-450); Red Cell Distribution Width 13.5 % (11.5-14.0); White Blood Count 9.3 K/mm3 (4.0-10.5)
[2018-06-28 23:42] LABS: Appearance CLOUDY (CLEAR); Bilirubin NEGATIVE (NEGATIVE); Blood NEGATIVE Ery/ul (0-5); Glucose NEGATIVE (NEGATIVE); Ketones NEGATIVE (NEGATIVE); Leukocyte Esterase NEGATIVE (NEGATIVE); Nitrite NEGATIVE (NEGATIVE); Protein,Urine Dip NEGATIVE (Negative); Specific Gravity 1.023 (1.005-1.025); Urobilinogen NEGATIVE mg/dL (0-1)
[2018-06-28 23:51] LABS: INR 1.04 (0.8-3.0)
[2018-06-28] MEDS ORDERED: Zofran 4 MG/2 ML VIAL IV ONE (23:55)
[2018-06-28] MEDS ORDERED: MORPHINE SULFATE 10 MG/ML IV ONE (23:55)
[2018-06-28 23:56] LABS: ALBUMIN 4.8 g/dL (3.5-5.0); ALKALINE PHOSPHATASE 144 U/L (38-126); AMYLASE 80 U/L (30-110); ANION GAP 15.2 MEQ/L (5-15); BLOOD UREA NITROGEN 19 mg/dL (9-20); CHLORIDE 104 mmol/L (98-107); Carbon Dioxide 22 mmol/L (22-30); Creatinine 1 1.11 mg/dL (0.66-1.25); Glucose 104 mg/dL (74-106); LIPASE 40 U/L (23-300); Potassium 4.5 mmol/L (3.5-5.1); SGOT/AST 26 U/L (17-59); SGPT/ALT 33 U/L (0-50); SODIUM 137 mmol/L (137-145); Total Protein 8.1 g/dL (6.3-8.2)
[2018-06-28] MEDS ORDERED: Zofran 4 MG/2 ML VIAL ONE (23:58)
[2018-06-29] MEDS ORDERED: MORPHINE SULFATE 4 MG INJ ONE (00:03)
[2018-06-29] MEDS ORDERED: MORPHINE SULFATE 10 MG/ML ONE (00:05)
[2018-06-29] MEDS ORDERED: DUONEB 0.5-3 MG/3 ml Neb IH PRN (01:45)
[2018-06-29] MEDS ORDERED: TYLENOL 325 MG PO PRN (01:45)
[2018-06-29] MEDS ORDERED: MORPHINE SULFATE 4 MG INJ IV PRN (01:45)
[2018-06-29] MEDS: Sodium Chloride 0.9% 1000 ML 1,000 ML IV SCH ×3 (03:40→23:32)
--- NOTE | 2018-06-29 07:47 | PCM.HP ---
History of Present Illness - Chief Complaint Chief Complaint: Small Bowel Obstruction History of Present Illness: Mr.HALE WILDER is a 77 year old male who presented to the ER yesterday, he developed an acute onset of abdominal pain that was diffuse and cramping in nature, he has no nausea, vomiting, diarrhea or change in bowel habits. 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 - Review of Systems Constitutional: No Fever, No Chills Respiratory: No Cough, No Short Of Breath Cardiac: No Chest Pain, No Edema, No Syncope Abdominal/Gastrointestinal: Abdominal Pain, No Nausea, No Vomiting, No Diarrhea Skin: No Rash All Other Systems: Reviewed and Negative Medications & Allergies Home Medications: Home Medication List Albuterol Sulfate [Proair Hfa] 2 puff IH UD PRN 04/13/15 [History Confirmed ] Fluticasone/Salmeterol Disc [Advair 250-50 Diskus 14 Dose] 1 each IH UD PRN 04/13/15 [History Confirmed 06/28/18] Pramipexole Di-HCl [Mirapex] 0.5 mg PO UD 04/13/15 [History Confirmed 06/29/18] Aspirin 81 gm Chew [Baby Aspirin 81 mg Chew] 81 mg PO DAILY #30 tab.chew 06/27/17 [Rx Confirmed 06/28/18] Sulfamethoxazole/Trimethoprim [Bactrim Ds Tablet] 1 each PO BID 10 Days #20 tablet 04/06/18 [Rx Confirmed 06/29/18] Amoxicillin [Amoxil] 500 mg PO TID 06/28/18 [History Confirmed 06/29/18] Allergies/Adverse Reactions: Allergies Allergy/AdvReac Type Severity Reaction Status Date / Time cilastatin sodium Allergy Severe Hives Verified 06/27/18 16:34 [From Primaxin IV] vancomycin Allergy Severe Swelling Verified 06/27/18 16:34 of Face codeine Allergy Mild Verified 06/27/18 16:34 imipenem [From Primaxin IV] Allergy Mild Verified 06/27/18 16:34 meperidine HCl [From Demerol] Allergy Mild Verified 06/27/18 16:34 - Past Medical History Past Medical History: Yes Neurological History: Peripheral Neuropathy ENT History: No Pertinent History Cardiac History: Coronary Artery Disease Respiratory History: Other, COPD Endocrine Medical History: Other Musculoskelatal History: Fractures GI Medical History: Other History: No Pertinent History Pyscho-Social History: Other Male Reproductive Disorders: No Pertinent History Comment: states stents x 3 and angioplasty. restless legs. 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 neck and back fx. borderline diabetic - Past Surgical History Past Surgical History: Yes Neuro Surgical History: No Pertinent History Cardiac History: Angioplasty, Cardiac Catheterization Respiratory Surgery: No Pertinent History GI Surgical History: Colon Resection, Other Genitourinary Surgical Hx: No Pertinent History Musculskeletal Surgical Hx: Orthopedic Surgery Male Surgical History: No Pertinent History Other Surgical History: back surgery, several abdominal surgeries over 8 years - Social History Smoking Status: Former smoker Exposure to second hand smoke: Yes Alcohol: Daily Drug Use: marijuana Significant Family History: heart disease, hypertension - Physical Exam Vital Signs: Vital Signs - 24 hr Temp Pulse Resp BP BP Pulse Ox 06/29/18 07:21 98 F 66 20 130/68 118/77 92 L 06/29/18 02:19 98.5 F 65 20 126/69 92 L 06/29/18 01:54 60 118/77 94 L 06/29/18 01:51 97 06/29/18 00:40 66 127/65 94 L 06/28/18 23:50 74 150/88 94 L 06/28/18 23:29 72 135/77 99 06/28/18 22:39 97.9 F 75 20 135/77 97 General Appearance: no apparent distress Neurologic Exam: alert, oriented x 3 Eye Exam: PERRL/EOMI, eyes nml inspection Neck Exam: normal inspection, non-tender, supple, full range of motion Respiratory Exam: normal breath sounds, lungs clear, No respiratory distress Cardiovascular Exam: regular rate/rhythm, normal heart sounds, normal peripheral pulses Gastrointestinal/Abdomen Exam: soft, No normal bowel sounds, No tenderness, No distention Extremity Exam: normal inspection, normal range of motion, pelvis stable Skin Exam: normal color, warm, dry, No rash Results - Labs Lab/Micro Results: Lab Results-Last 24 Hours 06/28/18 06/28/18 06/28/18 Range/Units 23:00 23:00 23:00 WBC 9.3 (4.0-10.5) K/mm3 RBC 5.60 (4.1-5.6) M/mm3 Hgb 18.1 H (12.5-18.0) gm/dl Hct 53.3 H (42-50) % MCV 95.2 (78-100) fl MCH 32.3 H (26-32) pg MCHC 34.0 (32-36) g/dl RDW 13.5 (11.5-14.0) % Plt Count 281 (150-450) K/mm3 MPV 9.9 H (6-9.5) fl Gran % 79.5 H (36.0-66.0) % Eos # (Auto) 0.09 (0-0.5) Absolute Lymphs (auto) 1.25 (1.0-4.6) Absolute Monos (auto) 0.54 (0.0-1.3) Lymphocytes % 13.5 L (24.0-44.0) % Monocytes % 5.8 (0.0-12.0) % Eosinophils % 1.0 (0.00-5.0) % Basophils % 0.2 (0.0-0.4) % Absolute Granulocytes 7.36 H (1.4-6.9) Basophils # 0.02 (0-0.4) PT 12.1 (8.83-12.87) SECONDS INR 1.04 (0.8-3.0) Sodium 137 (137-145) mmol/L Potassium 4.5 (3.5-5.1) mmol/L Chloride 104 (98-107) mmol/L Carbon Dioxide 22 (22-30) mmol/L Anion Gap 15.2 H (5-15) MEQ/L BUN 19 (9-20) mg/dL Creatinine 1.11 (0.66-1.25) mg/dL Estimated GFR > 60.0 ML/MIN Glucose 104 (74-106) mg/dL Calcium 10.0 (8.4-10.2) mg/dL Total Bilirubin 0.70 (0.2-1.3) mg/dL AST 26 (17-59) U/L ALT 33 (0-50) U/L Alkaline Phosphatase 144 H (38-126) U/L Serum Total Protein 8.1 (6.3-8.2) g/dL Albumin 4.8 (3.5-5.0) g/dL Amylase 80 (30-110) U/L Lipase 40 (23-300) U/L Urine Color (YELLOW) Urine Appearance (CLEAR) Urine pH (5-6) Ur Specific Sutton (1.005-1.025) Urine Protein (Negative) Urine Ketones (NEGATIVE) Urine Blood (0-5) Dilshad/ul Urine Nitrite (NEGATIVE) Urine Bilirubin (NEGATIVE) Urine Urobilinogen (0-1) mg/dL Ur Leukocyte Esterase (NEGATIVE) Urine WBC (Auto) (0-5) /HPF Urine RBC (Auto) (0-2) /HPF U Epithel Cells (Auto) (FEW) /HPF Urine Mucus (Auto) (NEGATIVE) /HPF Urine Culture Reflexed (NO) Urine Glucose (NEGATIVE) mg/dL 06/28/18 Range/Units 23:00 WBC (4.0-10.5) K/mm3 RBC (4.1-5.6) M/mm3 Hgb (12.5-18.0) gm/dl Hct (42-50) % MCV (78-100) fl MCH (26-32) pg MCHC (32-36) g/dl RDW (11.5-14.0) % Plt Count (150-450) K/mm3 MPV (6-9.5) fl Gran % (36.0-66.0) % Eos # (Auto) (0-0.5) Absolute Lymphs (auto) (1.0-4.6) Absolute Monos (auto) (0.0-1.3) Lymphocytes % (24.0-44.0) % Monocytes % (0.0-12.0) % Eosinophils % (0.00-5.0) % Basophils % (0.0-0.4) % Absolute Granulocytes (1.4-6.9) Basophils # (0-0.4) PT (8.83-12.87) SECONDS INR (0.8-3.0) Sodium (137-145) mmol/L Potassium (3.5-5.1) mmol/L Chloride (98-107) mmol/L Carbon Dioxide (22-30) mmol/L Anion Gap (5-15) MEQ/L BUN (9-20) mg/dL Creatinine (0.66-1.25) mg/dL Estimated GFR ML/MIN Glucose (74-106) mg/dL Calcium (8.4-10.2) mg/dL Total Bilirubin (0.2-1.3) mg/dL AST (17-59) U/L ALT (0-50) U/L Alkaline Phosphatase (38-126) U/L Serum Total Protein (6.3-8.2) g/dL Albumin (3.5-5.0) g/dL Amylase (30-110) U/L Lipase (23-300) U/L Urine Color YELLOW (YELLOW) Urine Appearance CLOUDY (CLEAR) Urine pH 5.0 (5-6) Ur Specific Sutton 1.023 (1.005-1.025) Urine Protein NEGATIVE (Negative) Urine Ketones NEGATIVE (NEGATIVE) Urine Blood NEGATIVE (0-5) Dilshad/ul Urine Nitrite NEGATIVE (NEGATIVE) Urine Bilirubin NEGATIVE (NEGATIVE) Urine Urobilinogen NEGATIVE (0-1) mg/dL Ur Leukocyte Esterase NEGATIVE (NEGATIVE) Urine WBC (Auto) 0-2 (0-5) /HPF Urine RBC (Auto) NONE (0-2) /HPF U Epithel Cells (Auto) RARE (FEW) /HPF Urine Mucus (Auto) SLIGHT (NEGATIVE) /HPF Urine Culture Reflexed NO (NO) Urine Glucose NEGATIVE (NEGATIVE) mg/dL - Radiology Impressions Radiology Exams & Impressions: Radiology Procedures Category Date Time Status ABDOMEN AND PELVIS W CONTRAST [CT] Stat Exams 06/28/18 23:11 Taken - Other Procedures and Tests Respiratory Therapy 06/29/18 07:42 Respiratory Therapy Assessment DAILY Assessment/Plan (1) Small bowel obstruction Current Visit: Yes Status: Acute Assessment & Plan: keep NPO, labs reassuring. no need for NG at this time but if develops any nausea or vomiting will place NG Code(s): K56.609 - UNSP INTESTNL OBST, UNSP TO PARTIAL VERSUS COMPLETE OBST
--- NOTE | 2018-06-29 08:42 | XRAY ---
Indication: Periumbilical pain. Multiple contiguous axial images obtained through the abdomen and pelvis using 80 cc Isovue-370 contrast only as ordered. Comparison: June 20, 2018. Lung bases again demonstrates mild bibasilar dependent atelectasis, more than before. No infiltrate or effusion. Heart is not enlarged. Stomach is distended with fluid. Small bowel anastomosis remains intact. Mid abdomen small bowel loops are now abnormally fluid distended up to 5.2 cm in diameter with fluid leveling with transition point right of midline favoring partial obstruction. Tiny pelvic free fluid presumed reactive but no walled off fluid collection or free air. There is colonic bowel gas. Stable hepatic hemangioma, hepatic/splenic calcified granulomas, and bilateral renal cysts. Remaining liver, gallbladder, pancreas, spleen, adrenal glands, kidneys, ureters, and bladder appear unremarkable. There remains mild aortoiliac calcifications. No AAA or pathological retroperitoneal lymphadenopathy. Osseous structures intact again with moderate multilevel degenerative spondylosis and mild dextrorotoscoliosis. Stable ventral hernia mesh graft with small knuckle of transverse colon herniating. Also stable small bilateral fatty inguinal hernias. Previous right anterior abdominal wall fluid collection appears much smaller. Impression: 1. New partial small bowel obstruction as detailed. 2. Stable hepatic hemangioma, renal cysts, evidence for old granulomatous disease, and bilateral fatty inguinal hernias. 3. Stable knuckle of transverse colon herniating along right ventral hernia mesh graft. Comment: Preliminary interpretation was made by C. No critical discrepancy. CTDI 22.85
[2018-06-29] MEDS: PROTONIX 40 MG IV IV SCH (09:36)
[2018-06-29] MEDS ORDERED: Ventolin Hfa MDI IH PRN (12:50)
[2018-06-29] MEDS ORDERED: ADVAIR 250-50 DISKUS 14 DOSE IH PRN (12:50)
[2018-06-29] MEDS ORDERED: Advair Hfa 115/21 Common canister IH PRN (12:55)
[2018-06-29] MEDS ORDERED: PROVENTIL COMMON CANISTER IH PRN (12:56)
[2018-06-30 05:43] LABS: BASOPHIL % 0.5 % (0.0-0.4); Basophil (Absolute #) 0.02 (0-0.4); Eosinophil (Absolute #) 0.17 (0-0.5); Granulocyte Absolute (ANC) 2.81 (1.4-6.9); Granulocytes % 66.2 % (36.0-66.0); Hematocrit 46.4 % (42-50); Hemoglobin 15.1 gm/dl (12.5-18.0); Lymphocyte (Absolute #) 1.02 (1.0-4.6); Lymphocytes % 24.1 % (24.0-44.0); Mean Cell Volume 98.9 fl (78-100); Mean Corpuscular Hemoglobin 32.2 pg (26-32); Mean Corpuscular Hgb Concent. 32.5 g/dl (32-36); Mean Platelet Volume 9.5 fl (6-9.5); Monocyte (Absolute #) 0.22 (0.0-1.3); Monocytes % 5.2 % (0.0-12.0); Platelet Count 198 K/mm3 (150-450); Red Blood Count 4.69 M/mm3 (4.1-5.6); Red Cell Distribution Width 13.4 % (11.5-14.0); White Blood Count 4.2 K/mm3 (4.0-10.5)
[2018-06-30 06:02] LABS: ALBUMIN 3.5 g/dL (3.5-5.0); ALKALINE PHOSPHATASE 103 U/L (38-126); ANION GAP 12.5 MEQ/L (5-15); BLOOD UREA NITROGEN 14 mg/dL (9-20); CHLORIDE 108 mmol/L (98-107); Calcium 8.5 mg/dL (8.4-10.2); Carbon Dioxide 20 mmol/L (22-30); Creatinine 1 0.92 mg/dL (0.66-1.25); Glucose 79 mg/dL (74-106); Potassium 4.4 mmol/L (3.5-5.1); SGOT/AST 18 U/L (17-59); SGPT/ALT 20 U/L (0-50); SODIUM 136 mmol/L (137-145); Total Protein 6.3 g/dL (6.3-8.2)
--- NOTE | 2018-06-30 08:27 | PCM.NOTE ---
Date and Time: 06/30/18825 Subjective Assessment: pain has resolved, passing flatus and feeling hungry. overall feels much better today Objective Exam General Appearance: no apparent distress, alert Respiratory Exam: normal breath sounds, lungs clear, No respiratory distress Cardiovascular Exam: regular rate/rhythm, normal heart sounds Gastrointestinal/Abdomen Exam: soft, normal bowel sounds (slightly decreased), No tenderness, No distention, No mass, No guarding Extremity Exam: normal inspection, normal range of motion OBJECTIVE DATA Vital Signs: Vital Signs - 24 hr Temp Pulse Resp BP Pulse Ox 06/30/18 07:54 58 L 18 94 L 06/30/18 07:52 97.5 F 53 L 17 113/58 93 L 06/30/18 04:08 97.7 F 50 L 18 116/58 96 06/29/18 23:53 98.1 F 65 14 120/64 93 L 06/29/18 20:34 58 L 18 91 L 06/29/18 19:22 98.4 F 56 L 16 119/60 95 06/29/18 15:42 97.8 F 60 20 135/72 98 06/29/18 11:22 98 F 60 20 118/67 96 Pain Assessment - Last Documented Pain Intensity 2 Pain Scale Used 0-10 Pain Scale Intake and Output: Intake & Output 06/27/18 06/28/18 06/29/18 06/30/18 11:59 11:59 11:59 11:59 Intake Total 0 2782 Output Total 450 1950 Balance -450 832 Weight 95.2 kg Lab Results: Lab Results-Last 24 Hours 06/30/18 06/30/18 Range/Units 05:20 05:20 WBC 4.2 (4.0-10.5) K/mm3 RBC 4.69 (4.1-5.6) M/mm3 Hgb 15.1 (12.5-18.0) gm/dl Hct 46.4 (42-50) % MCV 98.9 (78-100) fl MCH 32.2 H (26-32) pg MCHC 32.5 (32-36) g/dl RDW 13.4 (11.5-14.0) % Plt Count 198 (150-450) K/mm3 MPV 9.5 (6-9.5) fl Gran % 66.2 H (36.0-66.0) % Eos # (Auto) 0.17 (0-0.5) Absolute Lymphs (auto) 1.02 (1.0-4.6) Absolute Monos (auto) 0.22 (0.0-1.3) Lymphocytes % 24.1 (24.0-44.0) % Monocytes % 5.2 (0.0-12.0) % Eosinophils % 4.0 (0.00-5.0) % Basophils % 0.5 (0.0-0.4) % Absolute Granulocytes 2.81 (1.4-6.9) Basophils # 0.02 (0-0.4) Sodium 136 L (137-145) mmol/L Potassium 4.4 (3.5-5.1) mmol/L Chloride 108 H (98-107) mmol/L Carbon Dioxide 20 L (22-30) mmol/L Anion Gap 12.5 (5-15) MEQ/L BUN 14 (9-20) mg/dL Creatinine 0.92 (0.66-1.25) mg/dL Estimated GFR > 60.0 ML/MIN Glucose 79 (74-106) mg/dL Calcium 8.5 (8.4-10.2) mg/dL Total Bilirubin 0.60 (0.2-1.3) mg/dL AST 18 (17-59) U/L ALT 20 (0-50) U/L Alkaline Phosphatase 103 (38-126) U/L Serum Total Protein 6.3 (6.3-8.2) g/dL Albumin 3.5 (3.5-5.0) g/dL Radiology Exams: Radiology Procedures Category Date Time Status ABDOMEN AND PELVIS W CONTRAST [CT] Stat Exams 06/28/18 23:11 Completed Multi-Disciplinary Progress Notes: Multi-Disciplinary Progress Notes 06/29/18 11:04 Case Management Note by Nadiya Conte DISCHARGE PLAN REVIEWED WITH BOTH PATIENT AND LAY CAREGIVER AND SPOUSE, GIO. PT NORMALLY LIVES AT HOME WITH SPOUSE AND IS INDEPENDENT OF ALL ADL'S. HE HAS NO DME OR SERVICES AND IS NOT INTERESTED IN ANY. HE HAS MEANS FOR MEDICATION, WELL TRANSPORTATION. PLAN TO RETURN HOME TO PRE EPISODIC LEVEL OF FUNCTION. WILL CONTINUE TO MONITOR FOR ALL D/C NEEDS. IMPORTANT PAPERS FROM MEDICARE EXPLAINED, SIGNED, COPY GIVEN TO PATIENT, AND ORIGINAL TO THE CHART. Initialized on 06/29/18 11:04 - END OF NOTE Assessment/Plan (1) Small bowel obstruction Current Visit: Yes Status: Acute Onset Date: ~06/29/18 Assessment & Plan: improved, will start liquids and advance as tolerated. advised to notify nursing of pain or nausea with po intake and pt voices understanding. Code(s): K56.609 - UNSP INTESTNL OBST, UNSP TO PARTIAL VERSUS COMPLETE OBST
[2018-06-30] MEDS: PROTONIX 40 MG IV IV SCH (10:13)
[2018-06-30] MEDS: Sodium Chloride 0.9% 1000 ML 1,000 ML IV SCH ×2 (10:17→19:54)
[2018-07-01 05:48] LABS: BASOPHIL % 0.4 % (0.0-0.4); Basophil (Absolute #) 0.02 (0-0.4); Eosinophil % 4.5 % (0.00-5.0); Eosinophil (Absolute #) 0.21 (0-0.5); Granulocyte Absolute (ANC) 2.82 (1.4-6.9); Granulocytes % 61.1 % (36.0-66.0); Hematocrit 44.5 % (42-50); Hemoglobin 14.7 gm/dl (12.5-18.0); Lymphocyte (Absolute #) 1.27 (1.0-4.6); Lymphocytes % 27.5 % (24.0-44.0); Mean Corpuscular Hemoglobin 32.4 pg (26-32); Mean Platelet Volume 9.5 fl (6-9.5); Monocytes % 6.5 % (0.0-12.0); Platelet Count 236 K/mm3 (150-450); Red Blood Count 4.54 M/mm3 (4.1-5.6); Red Cell Distribution Width 13.3 % (11.5-14.0); White Blood Count 4.6 K/mm3 (4.0-10.5)
[2018-07-01 06:14] LABS: ALBUMIN 3.8 g/dL (3.5-5.0); ALKALINE PHOSPHATASE 93 U/L (38-126); ANION GAP 11.8 MEQ/L (5-15); BLOOD UREA NITROGEN 14 mg/dL (9-20); CHLORIDE 106 mmol/L (98-107); Carbon Dioxide 24 mmol/L (22-30); Creatinine 1 0.93 mg/dL (0.66-1.25); Glucose 100 mg/dL (74-106); Potassium 4.5 mmol/L (3.5-5.1); SGOT/AST 21 U/L (17-59); SGPT/ALT 20 U/L (0-50); SODIUM 137 mmol/L (137-145); Total Protein 6.6 g/dL (6.3-8.2)
[2018-07-01] MEDS: Sodium Chloride 0.9% 1000 ML 1,000 ML IV SCH (06:24)
--- NOTE | 2018-07-01 09:08 | XRAY ---
Indication: Follow-up small bowel obstruction. Comparison: CT abdomen/pelvis 2 days ago. 2 views of the abdomen again demonstrates abnormal distended small bowel loops with fluid leveling and paucity of distal bowel gas favoring small bowel obstruction. No free air. Stable right abdomen suture material, osteopenia, and multilevel degenerative spondylosis.
[2018-07-01] MEDS: PROTONIX 40 MG IV IV SCH (10:20)
--- NOTE | 2018-07-01 11:58 | PCM.DCORD ---
- Discharge Discharge Date: 07/01/18 Disposition: Home, Self-Care Condition: Stable Prescriptions: Continue Albuterol Sulfate [Proair Hfa] 2 puff IH UD PRN PRN Reason: Shortness Of Breath Fluticasone/Salmeterol Disc [Advair 250-50 Diskus 14 Dose] 1 each IH UD PRN PRN Reason: Shortness Of Breath Pramipexole Di-HCl [Mirapex] 0.5 mg PO UD Aspirin 81 gm Chew [Baby Aspirin 81 mg Chew] 81 mg PO DAILY #30 tab.chew Sulfamethoxazole/Trimethoprim [Bactrim Ds Tablet] 1 each PO BID 10 Days #20 tablet Amoxicillin [Amoxil] 500 mg PO TID Follow up with: JEFFERY CASE [Primary Care Provider] - 1 Week
[2018-07-01 12:42] VITALS: BP 138/65; PULSE 56; O2SAT 97
--- NOTE | 2018-07-02 16:53 | PCM.DS ---
Discharge Summary Date of Admission: 06/29/18 07:44 Date of Discharge: 07/01/18 Admitting Physician: JEFFERY CASE Primary Care Provider: JEFFERY CASE Allergies Allergies cilastatin sodium [From Primaxin IV] Allergy (Severe, Verified 06/27/18 16:34) Hives vancomycin Allergy (Severe, Verified 06/27/18 16:34) Swelling of Face codeine Allergy (Mild, Verified 06/27/18 16:34) imipenem [From Primaxin IV] Allergy (Mild, Verified 06/27/18 16:34) meperidine HCl [From Demerol] Allergy (Mild, Verified 06/27/18 16:34) Hospital Summary - Hospital Course Hospital Course: presenting with abdominal distension he was found to have a partial small bowel obstruction. He has complicated surgical history with previous infected mesh and fistula formations and has been doing well recently. he was on antibiotics for a cellulites of the abdominal wall and it is improving. He followed up with his surgeon in [place] who recommends against any surgery unless absolutely needed. He was placed npo and iv fluids and had improving symptoms and passing of flatulence and yesterday diet advanced to full last night with no difficulty. He had a bowel movement this am without difficulty and has eaten biscuits and gravy and now spaghetti and garlic bread with no nausea or vomiting or abdominal pain. The xray still shows possible partial sbo. Clinically he has normal bowel sounds and soft abdomen nontender. He was given symptoms to return for and discharged to home today in good condition. - Vitals & Intake/Output Vital Signs: Vital Signs Temperature 98.6 F 07/01/18 12:00 Pulse Rate 56 L 07/01/18 12:00 Respiratory Rate 18 07/01/18 12:00 Blood Pressure 138/65 07/01/18 12:00 O2 Sat by Pulse Oximetry 97 07/01/18 12:00 Intake & Output: Intake & Output 06/30/18 07/01/18 07/02/18 07/03/18 11:59 11:59 11:59 11:59 Intake Total 2782 3263 Output Total 1799 850 Balance 832 2413 - Lab Result Diagrams: 07/01/18 05:15 07/01/18 05:15 Micro Results-Entire Visit: Microbiology 06/28/18 23:45 Blood Culture - Preliminary Blood NO GROWTH TO DATE 06/28/18 23:00 Blood Culture - Preliminary Blood NO GROWTH TO DATE - Radiology Exams Ordered Rad Exams-Entire Visit: Radiology Procedures Category Date Time Status ABDOMEN 2 VIEW Routine Exams 07/01/18 08:56 Completed - Procedures and Test Procedures and Tests throughout Hospitalization: Therapy Orders & Screens 06/29/18 07:42 Respiratory Therapy Assessment DAILY Comment: Diagnosis: Small Bowel Obstruction Discharge Exam General Appearance: no apparent distress, alert Neurologic Exam: alert, oriented x 3, cooperative, normal mood/affect, nml cerebellar function, sensation nml, No motor deficits Skin Exam: normal color, warm, dry Eye Exam: PERRL, EOMI, eyes nml inspection Ears, Nose, Throat Exam: normal ENT inspection, pharynx normal, moist mucous membranes Neck Exam: normal inspection, non-tender, supple, full range of motion Respiratory Exam: normal breath sounds, lungs clear, No respiratory distress Cardiovascular Exam: regular rate/rhythm, normal heart sounds Gastrointestinal/Abdomen Exam: soft, normal bowel sounds, hernia (incisional with the large old scars area of cellulitis no longer warm or tender or firm), No tenderness, No mass, No ecchymosis Extremity Exam: normal inspection, normal range of motion Back Exam: normal inspection, normal range of motion, No CVA tenderness, No vertebral tenderness Male Genitalia Exam: deferred Rectal Exam: deferred Final Diagnosis/Problem List - Final Discharge Diagnosis/Problem (1) Small bowel obstruction Status: Acute Onset Date: ~06/29/18 - Discharge Discharge Date: 07/01/18 Disposition: Home, Self-Care Condition: Stable Prescriptions: Continue Albuterol Sulfate [Proair Hfa] 2 puff IH UD PRN PRN Reason: Shortness Of Breath Fluticasone/Salmeterol Disc [Advair 250-50 Diskus 14 Dose] 1 each IH UD PRN PRN Reason: Shortness Of Breath Pramipexole Di-HCl [Mirapex] 0.5 mg PO UD Aspirin 81 gm Chew [Baby Aspirin 81 mg Chew] 81 mg PO DAILY #30 tab.chew Sulfamethoxazole/Trimethoprim [Bactrim Ds Tablet] 1 each PO BID 10 Days #20 tablet Amoxicillin [Amoxil] 500 mg PO TID Instructions: Small Bowel Obstruction Follow up with: JEFFERY CASE [Primary Care Provider] - 07/10/18 10:15 am Forms: Discharge Instructions
== END 2018-07-01 12:20 | disposition home or self-care (01) | DRG 390 ==
LOC: ED 22:39 → MED SURG 06-29 02:10 → OBSVTOIN 06-29 07:44
PROVIDERS: ADMIT Family Medicine; ATTEND Family Medicine
DX: K56.609 Unspecified intestinal obstruction, unspecified as to partial versus complete obstruction (principal); J44.9 Chronic obstructive pulmonary disease, unspecified; Z90.49 Acquired absence of other specified parts of digestive tract; E11.9 Type 2 diabetes mellitus without complications; I25.10 Atherosclerotic heart disease of native coronary artery without angina pectoris; G62.9 Polyneuropathy, unspecified; R10.9 Unspecified abdominal pain; Z79.899 Other long term (current) drug therapy
CPT/HCPCS: 36000; 36415; 74021; 74177; 80053; 81001; 82150; 83690; 85025; 85610; 87040; 94760; 96360; 96361; 96374; 96375; 99285; J2270; J2405

== ENCOUNTER 2018-07-27 13:04 | Emergency (ER) | payer MEDICARE, OTHER ==
[2018-07-27 13:48] VITALS: O2SAT 94
[2018-07-27 13:57] VITALS: BP 125/77; PULSE 72
[2018-07-27] MEDS ORDERED: XYLOCAINE 1% HCL 20 ML MDV ONE (13:58)
[2018-07-27] MEDS ORDERED: Adacel Vial IM ONE (13:59)
[2018-07-27] MEDS: Adacel Vial IM ONE (14:02)
[2018-07-27] MEDS: XYLOCAINE 1% HCL 20 ML MDV IJ ONE (14:03)
[2018-07-27] MEDS ORDERED: BACIGUENT PACKET ONE (14:06)
[2018-07-27] MEDS: BACIGUENT PACKET TP ONE (14:09)
--- NOTE | 2018-07-27 14:16 | ERPHSYRPT ---
- History of Present Illness Time Seen by Provider: 07/27/18 13:52 Source: patient Exam Limitations: no limitations Patient Subjective Stated Complaint: was cutting a hog with a bone saw and cut top of left hand. had attempted to close wound at home with super glue. Triage Nursing Assessment: ambulated to room per self. skin w/d, color normal, resp easy. has 3 cm lac to top of left hand. area cleaned with hibiclens and sterile water. area bleeding, pressure dressing placed on hand. has full rom to hand and fingers. Physician History: The patient is a 78-year-old right-handed male complaining that he accidentally cut the top part of his left hand with a bone saw while slaughtering a hog one hour before arrival. His last tetanus vaccination is unknown. He denies numbness or tingling. He denies any problems with moving his fingers or hand. His past medical history is significant for gastric gangrene of the bowels, TIA , COPD. Timing/Duration: today Quality: other (laceration) Severity: mild Location: hands (left) Possible Causes: other (saw) Associated Symptoms: other (bleeding) Allergies/Adverse Reactions: cilastatin sodium [From Primaxin IV] Allergy (Severe, Verified 06/27/18 16:34) Hives vancomycin Allergy (Severe, Verified 06/27/18 16:34) Swelling of Face codeine Allergy (Mild, Verified 06/27/18 16:34) imipenem [From Primaxin IV] Allergy (Mild, Verified 06/27/18 16:34) meperidine HCl [From Demerol] Allergy (Mild, Verified 06/27/18 16:34) Home Medications: Albuterol Sulfate [Proair Hfa] 2 puff IH UD PRN 04/13/15 [History] Fluticasone/Salmeterol Disc [Advair 250-50 Diskus 14 Dose] 1 each IH UD PRN 04/13/15 [History] Pramipexole Di-HCl [Mirapex] 0.5 mg PO UD 04/13/15 [History] Amoxicillin [Amoxil] 500 mg PO TID 06/28/18 [History] Hx Tetanus, Diphtheria Vaccination/Date Given: No Hx Influenza Vaccination/Date Given: Yes Hx Pneumococcal Vaccination/Date Given: Yes - Review of Systems Constitutional: No Fever, No Chills Eyes: No Symptoms Ears, Nose, & Throat: No Symptoms Respiratory: No Cough, No Dyspnea Cardiac: No Chest Pain, No Edema, No Syncope Abdominal/Gastrointestinal: No Abdominal Pain, No Nausea, No Vomiting, No Diarrhea Genitourinary Symptoms: No Dysuria Musculoskeletal: No Back Pain, No Neck Pain Skin: Other (laceration) Neurological: No Dizziness, No Focal Weakness, No Sensory Changes Psychological: No Symptoms Endocrine: No Symptoms Hematologic/Lymphatic: No Symptoms Immunological/Allergic: No Symptoms All Other Systems: Reviewed and Negative - Past Medical History Pertinent Past Medical History: Yes Neurological History: Peripheral Neuropathy ENT History: No Pertinent History Cardiac History: Coronary Artery Disease Respiratory History: Other, COPD Endocrine Medical History: Other Musculoskeletal History: Fractures GI Medical History: Other History: No Pertinent History Psycho-Social History: Other Male Reproductive Disorders: No Pertinent History Other Medical History: states stents x 3 and angioplasty. restless legs. 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 neck and back fx. borderline diabetic - Past Surgical History Past Surgical History: Yes Neuro Surgical History: No Pertinent History Cardiac: Angioplasty, Cardiac Catheterization Respiratory: No Pertinent History Gastrointestinal: Colon Resection, Other Genitourinary: No Pertinent History Musculoskeletal: Orthopedic Surgery Male Surgical History: No Pertinent History Other Surgical History: back surgery, several abdominal surgeries over 8 years - Social History Smoking Status: Former smoker Exposure to second hand smoke: Yes Alcohol Use: yes Drug Use: marijuana Patient Lives Alone: No Significant Family History: heart disease, hypertension - Nursing Vital Signs Nursing Vital Signs: Initial Vital Signs Temperature 98 F 07/27/18 13:31 Pulse Rate 77 07/27/18 13:31 Respiratory Rate 16 07/27/18 13:31 Blood Pressure 134/93 07/27/18 13:31 O2 Sat by Pulse Oximetry 94 L 07/27/18 13:31 Pain Scale Pain Intensity 2 - Physical Exam General Appearance: no apparent distress, alert Eye Exam: PERRL/EOMI, eyes nml inspection Ears, Nose, Throat Exam: normal ENT inspection, pharynx normal, moist mucous membranes Neck Exam: normal inspection, non-tender, supple, full range of motion Respiratory Exam: normal breath sounds, lungs clear, No respiratory distress Cardiovascular Exam: regular rate/rhythm, normal heart sounds Gastrointestinal/Abdomen Exam: soft, mass, No tenderness Rectal Exam: not done Back Exam: normal inspection, normal range of motion, No CVA tenderness, No vertebral tenderness Extremity Exam: normal inspection, normal range of motion Neurologic Exam: alert, oriented x 3, cooperative, normal mood/affect, sensation nml, No motor deficits Skin Exam: laceration (2 cm linear laceration to top of left hand) SpO2 Interpretation: normal SpO2: 94 Oxygen Delivery: Room Air Procedures - Laceration/Wound Repair Left Distal Dorsal Hand Wound Location: Left, hand Wound Length (cm): 2 Wound's Depth, Shape: superficial, linear Wound Explored: clean Irrigated: Yes Hibiclens Prep: Yes Anesthesia: 1% Lidocaine Volume Anesthetic (ccs): 8 Wound Repaired With: sutures Suture Size/Type: 4-0 Number of Sutures: 6 Layer Closure?: No Sterile Dressing Applied?: Yes Splint Applied?: No Sling Applied?: No - Progress Progress: improved Counseled pt/family regarding: diagnosis, need for follow-up - Departure Time of Disposition: 14:26 Departure Disposition: Home Clinical Impression: Laceration of left hand Condition: Stable Critical Care Time: No Referrals: JEFFERY CASE [Primary Care Provider] - Additional Instructions: You had a laceration to the top part of your left hand repaired with 6 sutures. Have your primary medical doctor remove the sutures in 12-14 days. Keep your hand clean and dry but you are able to take a brief shower. Take Augmentin 875 to times a day for 10 days. Take Tylenol and ibuprofen as needed. Prescriptions: Amoxicillin/Potassium Clav [Augmentin 875-125 Tablet] 1 each PO BID #20 tablet
== END 2018-07-27 14:33 | disposition home or self-care (01) ==
LOC: ED 13:04
DX: S61.412A Laceration without foreign body of left hand, initial encounter (principal); X78.9XXA Intentional self-harm by unspecified sharp object, initial encounter; Y93.K9 Activity, other involving animal care; Z79.899 Other long term (current) drug therapy
CPT/HCPCS: 12001; 90471; 90715; 96372; 99284; A9270-GY

== ENCOUNTER 2019-08-12 15:43 | Emergency (ER) | payer MEDICARE, OTHER ==
--- NOTE | 2019-08-12 15:57 | ERPHSYRPT ---
- History of Present Illness Time Seen by Provider: 08/12/19 15:56 Source: patient Exam Limitations: no limitations Physician History: The patient is a [id number] male who presents with a chief complaint of numbness in his left hand. 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 He states that after his bypass surgery in April [id number] from surgery complaining of numbness to the left knee finger and since that time the numbness has now gone the entire left hand. He reportedly is scheduled to see Dr. Pimentel, his primary care provider, in 10 days but did not want to wait that long and decided to come to the emergency department for further evaluation and management. He denies any recent trauma to the affected hand and reportedly had use of his hand earlier this summer in terms of 15 and able to turn the radial of the fishing pole without too much difficulty but with some stiffness in the left hand. He denies having a formal diagnosis of rheumatoid arthritis or In addition to use stiffness and numbness he states that both of his hands are cold and he also dorsum and a history of carpal tunnel syndrome involving the right hand. He's not had a prior left hand surgeries or procedures performed, nor has he been referred to a hand specialist for further evaluation and management. Timing/Duration: other (Months) Associated Symptoms: other (Stiffness, numbness, and pain) Allergies/Adverse Reactions: cilastatin sodium [From Primaxin IV] Allergy (Severe, Verified 08/12/19 16:15) Hives vancomycin Allergy (Severe, Verified 08/12/19 16:15) Swelling of Face codeine Allergy (Mild, Verified 08/12/19 16:15) imipenem [From Primaxin IV] Allergy (Mild, Verified 08/12/19 16:15) meperidine HCl [From Demerol] Allergy (Mild, Verified 08/12/19 16:15) Home Medications: Albuterol Sulfate [Proair Hfa] 2 puff IH UD PRN 04/13/15 [History] Fluticasone/Salmeterol Disc [Advair 250-50 Diskus 14 Dose] 1 each IH UD PRN 04/13/15 [History] Pramipexole Di-HCl [Mirapex] 0.5 mg PO UD 04/13/15 [History] Amoxicillin [Amoxil] 500 mg PO TID 06/28/18 [History] Hx Tetanus, Diphtheria Vaccination/Date Given: No Hx Influenza Vaccination/Date Given: Yes Hx Pneumococcal Vaccination/Date Given: Yes - Review of Systems Constitutional: No Fever Eyes: No Symptoms Respiratory: No Cough Musculoskeletal: Arthralgias, Joint Pain, Joint Swelling, Other (Stiffness in both hands L>R), No Joint Redness Neurological: Parasthesia, Other (Numbness and paresthesia noted on the L hand) All Other Systems: Reviewed and Negative - Past Medical History Pertinent Past Medical History: Yes Neurological History: Peripheral Neuropathy ENT History: No Pertinent History Cardiac History: Coronary Artery Disease Respiratory History: Other, COPD Endocrine Medical History: Other Musculoskeletal History: Fractures GI Medical History: Other History: No Pertinent History Psycho-Social History: Other Male Reproductive Disorders: No Pertinent History Other Medical History: states stents x 3 and angioplasty. restless legs. 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 neck and back fx. borderline diabetic - Past Surgical History Past Surgical History: Yes Neuro Surgical History: No Pertinent History Cardiac: Angioplasty, Cardiac Catheterization Respiratory: No Pertinent History Gastrointestinal: Colon Resection, Other Genitourinary: No Pertinent History Musculoskeletal: Orthopedic Surgery Male Surgical History: No Pertinent History Other Surgical History: back surgery, several abdominal surgeries over 8 years - Social History Smoking Status: Former smoker Exposure to second hand smoke: Yes Alcohol Use: yes Drug Use: marijuana Patient Lives Alone: No Significant Family History: heart disease, hypertension - Nursing Vital Signs Nursing Vital Signs: Initial Vital Signs Pulse Rate 56 L 08/12/19 16:03 Respiratory Rate 20 08/12/19 16:03 Blood Pressure 145/74 08/12/19 16:03 O2 Sat by Pulse Oximetry 97 08/12/19 16:03 Pain Scale Pain Intensity 0 - Physical Exam General Appearance: no apparent distress, alert Neck Exam: normal inspection, supple Respiratory Exam: normal breath sounds, lungs clear, No respiratory distress, No accessory muscle use Cardiovascular Exam: regular rate/rhythm, normal heart sounds, other (Well- healing sternotomy scar present, radial pulse 2+ bilaterally) Extremity Exam: other (Both hands appeared to have ulnar deviation L>R and the MCP appeared to be swollen and with degenerative changes L>R. A great amount of stiffness was noted in the L hand to the point that he was unable to completely close the L hand. Both hands were cool to touch, but with good capillary refill plus it was freezing outside. His hands appeared to be symmetrically swollen, but without increased warmth, fluctuance or induration ) Neurologic Exam: alert, oriented x 3, cooperative, other (Decreased sensation to entire L hand to gross touch) SpO2 Interpretation: normal - Progress Progress: unchanged Counseled pt/family regarding: diagnosis, need for follow-up - Departure Departure Disposition: Home Clinical Impression: Arthritis, Arthritis of hand, Neuropathy of left hand Condition: Stable Critical Care Time: No Referrals: DEN PIMENTEL MD [Primary Care Provider] - Instructions: Rheumatoid Arthritis, Peripheral Neuropathy Additional Instructions: Please follow-up with the [facility] located on [address] [place] [address] in [place]. Please call and schedule an appointment to be seen as soon as possible. Please follow-up as scheduled with your primary care provider. Plan of Treatment: Nontoxic in appearance. I suspect the patient is likely suffering from arthritis affected both hands L>R and possibly undiagnosed RA given he has significant MCP invovlement, stiffness, and ulnar deviation. In my opinion, there is nothing i can provide from an emergent standpoint. I recommend he follow-up with his PCP as scheduled in 10 days per his report and gave him information to a hand specialist for him to contact as well and to inquire about the need for peripheral nerve studies. Honestly, I wouldn't be surprised if the patient will need to see rheumatology but I'll defer this decision to his PCP.
[2019-08-12 16:15] VITALS: BP 145/74; PULSE 56; O2SAT 97
== END 2019-08-12 16:36 | disposition home or self-care (01) ==
LOC: ED 15:43
DX: M19.042 Primary osteoarthritis, left hand (principal); G62.9 Polyneuropathy, unspecified
CPT/HCPCS: 99283

== ENCOUNTER 2020-06-08 16:28 | Emergency (ER) | payer MEDICARE, OTHER ==
[2020-06-08 16:53] LABS: Absolute Neutrophil Ct (ANC) 3.62 (1.4-6.9); BASOPHIL % 0.2 % (0.0-0.4); Basophil (Absolute #) 0.01 (0-0.4); Eosinophil % 5.9 % (0.00-5.0); Eosinophil (Absolute #) 0.31 (0-0.5); Hematocrit 39.4 % (42-50); Hemoglobin 12.9 gm/dl (12.5-18.0); Lymphocyte (Absolute #) 1.08 (1.0-4.6); Lymphocytes % 20.5 % (24.0-44.0); Mean Cell Volume 100.5 fl (78-100); Mean Corpuscular Hemoglobin 32.9 pg (26-32); Mean Corpuscular Hgb Concent. 32.7 g/dl (32-36); Mean Platelet Volume 9.3 fl (7.5-11.0); Monocyte (Absolute #) 0.26 (0.0-1.3); Monocytes % 4.9 % (0.0-12.0); Neutrophil % 68.5 % (36.0-66.0); Platelet Count 198 K/mm3 (150-450); Red Blood Count 3.92 M/mm3 (4.1-5.6); Red Cell Distribution Width 13.5 % (11.5-14.0); White Blood Count 5.3 K/mm3 (4.0-10.5)
[2020-06-08 17:04] LABS: ALBUMIN 3.8 g/dL (3.5-5.0); ALKALINE PHOSPHATASE 96 U/L (38-126); BLOOD UREA NITROGEN 16 mg/dL (9-20); CHLORIDE 104 mmol/L (98-107); Calcium 8.9 mg/dL (8.4-10.2); Carbon Dioxide 27 mmol/L (22-30); Creatinine 1 1.24 mg/dL (0.66-1.25); EST GLOMERULAR FILTRATION RATE > 60.0 ML/MIN; Glucose 112 mg/dL (74-106); MAGNESIUM 1.9 mg/dL (1.6-2.3); Potassium 3.8 mmol/L (3.5-5.1); SGOT/AST 35 U/L (17-59); SGPT/ALT 33 U/L (0-50); SODIUM 137 mmol/L (137-145)
[2020-06-08 18:17] LABS: Appearance CLOUDY (CLEAR); Bacteria MANY /HPF (NEGATIVE); Bilirubin NEGATIVE (NEGATIVE); Blood SMALL Ery/ul (0-5); Glucose NEGATIVE (NEGATIVE); Ketones NEGATIVE (NEGATIVE); Leukocyte Esterase LARGE (NEGATIVE); Mucus SLIGHT /HPF (NEGATIVE); Nitrite NEGATIVE (NEGATIVE); Protein,Urine Dip 30 (Negative); Urobilinogen NEGATIVE mg/dL (0-1); WBC >100 /HPF (0-5)
--- NOTE | 2020-06-08 18:17 | ERPHSYRPT ---
- History of Present Illness Time Seen by Provider: 06/08/20 16:40 Source: patient Exam Limitations: no limitations Patient Subjective Stated Complaint: Pt states that he hasn't been able to urinate for 2 days Triage Nursing Assessment: Pt drove self to the ER, vitals wnl, denies pain, states that he has only dribbled a small amount of urine, skin [place], w/d, recent hernia mesh repair, nati lower extremity edema, pulses normal Physician History: Patient is a 79-year-old male presents to our ED with complaints of urinary retention. Patient states he feels like he has to urinate but he only dribbles. Symptoms have been ongoing for approximately 2 days. Prior to his urinary complaint patient has been feeling somewhat weak over the past 3 days. No associated fevers. No nausea or vomiting. No diaphoresis. No trauma. No chest pain or shortness of breath. Symptoms are mild to moderate in intensity. No specific worsening or improving factors. Patient voices no other complaints or concerns at this time. Timing/Duration: day(s) Severity: moderate Modifying Factors: Improves With: nothing Associated Symptoms: denies symptoms Allergies/Adverse Reactions: cilastatin sodium [From Primaxin IV] Allergy (Severe, Verified 06/08/20 16:44) Hives vancomycin Allergy (Severe, Verified 06/08/20 16:44) Swelling of Face codeine Allergy (Mild, Verified 06/08/20 16:44) imipenem [From Primaxin IV] Allergy (Mild, Verified 06/08/20 16:44) meperidine HCl [From Demerol] Allergy (Mild, Verified 06/08/20 16:44) Home Medications: Albuterol Sulfate [Proair Hfa] 2 puff IH UD PRN 04/13/15 [History] Fluticasone/Salmeterol Disc [Advair 250-50 Diskus 14 Dose] 1 each IH UD PRN 04/13/15 [History] Pramipexole Di-HCl [Mirapex] 1 mg PO UD 04/13/15 [History] Ezetimibe 10 mg PO DAILY 06/08/20 [History] Fluticasone/Vilanterol [Breo Ellipta 100-25 Mcg INH] 1 each IH UD 06/08/20 [History] Furosemide 40 mg PO DAILY 06/08/20 [History] Potassium Chloride [Klor-Con M20] 20 meq PO DAILY 06/08/20 [History] Rivaroxaban [Xarelto] 20 mg PO DAILY 06/08/20 [History] Ropinirole HCl [Requip] 1 mg PO HS 06/08/20 [History] Sitagliptin Phos/Metformin HCl [Janumet Xr 100-1,000 mg Tablet] 1,000 mg PO DAILY 06/08/20 [History] Trazodone HCl 100 mg PO HS 06/08/20 [History] Hx Tetanus, Diphtheria Vaccination/Date Given: No Hx Influenza Vaccination/Date Given: Yes Hx Pneumococcal Vaccination/Date Given: Yes Travel Risk - International Travel Have you traveled outside of the country in past 3 weeks: No - Coronavirus Screening Are you exhibiting any of the following symptoms?: No Close contact with a COVID-19 positive Pt in past 14-21 Days: No - Review of Systems Constitutional: No Symptoms, No Fever, No Chills Eyes: No Symptoms Ears, Nose, & Throat: No Symptoms Respiratory: No Symptoms, No Cough, No Dyspnea Cardiac: No Symptoms, No Chest Pain, No Edema, No Syncope Abdominal/Gastrointestinal: No Symptoms, No Abdominal Pain, No Nausea, No Vomiting, No Diarrhea Genitourinary Symptoms: No Symptoms, No Dysuria Musculoskeletal: No Symptoms, No Back Pain, No Neck Pain Skin: No Symptoms, No Rash Neurological: No Symptoms, No Dizziness, No Focal Weakness, No Sensory Changes Psychological: No Symptoms Endocrine: No Symptoms Hematologic/Lymphatic: No Symptoms Immunological/Allergic: No Symptoms All Other Systems: Reviewed and Negative - Past Medical History Pertinent Past Medical History: Yes Neurological History: Peripheral Neuropathy ENT History: No Pertinent History Cardiac History: Arrhythmia, Coronary Artery Disease, High Cholesterol, Hypertension, Myocardial Infarction ([place]) Respiratory History: Other, COPD Endocrine Medical History: Other Musculoskeletal History: Arthritis, Fractures, Rheumatoid Arthritis GI Medical History: Diverticulitis, Hernia, Other History: No Pertinent History Psycho-Social History: Other Male Reproductive Disorders: No Pertinent History Other Medical History: states stents x 3 and angioplasty, MRSA, clot that went to his bowel. restless legs. 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 neck and back fx. borderline diabetic. black lung - Past Surgical History Past Surgical History: Yes Neuro Surgical History: No Pertinent History Cardiac: Angioplasty, CABG, Cardiac Catheterization, Cardiac Stent Respiratory: No Pertinent History Gastrointestinal: Bowel Surgery, Colon Resection, Hernia Repair, Other Genitourinary: No Pertinent History Musculoskeletal: Orthopedic Surgery Male Surgical History: No Pertinent History Other Surgical History: back surgery, several abdominal surgeries over 8 years - Social History Smoking Status: Former smoker Exposure to second hand smoke: Yes Alcohol Use: yes Drug Use: marijuana Patient Lives Alone: No Significant Family History: heart disease, hypertension - Nursing Vital Signs Nursing Vital Signs: Initial Vital Signs Temperature 98.1 F 06/08/20 16:36 Pulse Rate 79 06/08/20 16:36 Blood Pressure 146/76 06/08/20 16:36 O2 Sat by Pulse Oximetry 96 06/08/20 16:36 Pain Scale Pain Intensity 0 - Physical Exam General Appearance: no apparent distress, alert Eye Exam: PERRL/EOMI, eyes nml inspection Ears, Nose, Throat Exam: normal ENT inspection, TMs normal, pharynx normal, moist mucous membranes Neck Exam: normal inspection, non-tender, supple, full range of motion Respiratory Exam: normal breath sounds, lungs clear, No respiratory distress Cardiovascular Exam: regular rate/rhythm, normal heart sounds, normal peripheral pulses Gastrointestinal/Abdomen Exam: soft, normal bowel sounds, No tenderness, No mass Back Exam: normal inspection, normal range of motion, No CVA tenderness, No vertebral tenderness Extremity Exam: normal inspection, normal range of motion, pelvis stable Neurologic Exam: alert, oriented x 3, cooperative, normal mood/affect, nml cerebellar function, nml station & gait, sensation nml, No motor deficits Skin Exam: normal color, warm, dry, No rash Lymphatic Exam: No adenopathy SpO2: 96 O2 Delivery: Room Air - Course Nursing assessment & vital signs reviewed: Yes Ordered Tests: Active Orders 24 hr Category Date Time Status IV Insertion STAT Care 06/08/20 16:41 Active CBC W DIFF Stat Lab 06/08/20 16:50 Completed CMP Stat Lab 06/08/20 16:50 Completed CULTURE,URINE Stat Lab 06/08/20 18:06 Received MAGNESIUM Stat Lab 06/08/20 16:50 Completed TROPONIN Q3H Lab 06/08/20 16:50 Completed TROPONIN Q3H Lab 06/08/20 19:45 Ordered TROPONIN Q3H Lab 06/08/20 22:45 Ordered TROPONIN Q3H Lab 06/09/20 01:45 Ordered TROPONIN Q3H Lab 06/09/20 04:45 Ordered UA W/RFX UR CULTURE Stat Lab 06/08/20 18:06 Completed Medication Summary Discontinued Medications Generic Name Dose Route Start Last Admin Trade Name Ted PRN Reason Stop Dose Admin Ciprofloxacin Confirm 06/08/20 19:15 Cipro 500 Mg Administered 06/08/20 19:16 Dose 500 mg .ROUTE .STK-MED ONE Nitrofurantoin Macrocrystals 100 mg 06/08/20 19:18 06/08/20 19:24 Macrobid 100mg Capsule PO 06/08/20 19:19 100 mg STAT ONE Administration Lab/Rad Data: Laboratory Result Diagrams 06/08/20 16:50 06/08/20 16:50 Laboratory Results 06/08/20 06/08/20 06/08/20 Range/Units 18:06 16:50 16:50 WBC (4.0-10.5) K/mm3 RBC (4.1-5.6) M/mm3 Hgb (12.5-18.0) gm/dl Hct (42-50) % MCV (78-100) fl MCH (26-32) pg MCHC (32-36) g/dl RDW (11.5-14.0) % Plt Count (150-450) K/mm3 MPV (7.5-11.0) fl Gran % (36.0-66.0) % Eos # (Auto) (0-0.5) Absolute Lymphs (auto) (1.0-4.6) Absolute Monos (auto) (0.0-1.3) Lymphocytes % (24.0-44.0) % Monocytes % (0.0-12.0) % Eosinophils % (0.00-5.0) % Basophils % (0.0-0.4) % Absolute Granulocytes (1.4-6.9) Basophils # (0-0.4) Sodium 137 (137-145) mmol/L Potassium 3.8 (3.5-5.1) mmol/L Chloride 104 (98-107) mmol/L Carbon Dioxide 27 (22-30) mmol/L Anion Gap 10.0 (5-15) MEQ/L BUN 16 (9-20) mg/dL Creatinine 1.24 (0.66-1.25) mg/dL Estimated GFR > 60.0 ML/MIN Glucose 112 H (74-106) mg/dL Calcium 8.9 (8.4-10.2) mg/dL Magnesium 1.9 (1.6-2.3) mg/dL Total Bilirubin 0.30 (0.2-1.3) mg/dL AST 35 (17-59) U/L ALT 33 (0-50) U/L Alkaline Phosphatase 96 (38-126) U/L Troponin I < 0.012 (0.000-0.034) ng/mL Serum Total Protein 7.0 (6.3-8.2) g/dL Albumin 3.8 (3.5-5.0) g/dL Urine Color YELLOW (YELLOW) Urine Appearance CLOUDY (CLEAR) Urine pH 5.0 (5-6) Ur Specific [place] 1.020 (1.005-1.025) Urine Protein 30 (Negative) Urine Ketones NEGATIVE (NEGATIVE) Urine Blood SMALL (0-5) Dilshad/ul Urine Nitrite NEGATIVE (NEGATIVE) Urine Bilirubin NEGATIVE (NEGATIVE) Urine Urobilinogen NEGATIVE (0-1) mg/dL Ur Leukocyte Esterase LARGE (NEGATIVE) Urine WBC (Auto) >100 (0-5) /HPF Urine RBC (Auto) 6-10 (0-2) /HPF U Epithel Cells (Auto) NONE (FEW) /HPF Urine Bacteria (Auto) MANY (NEGATIVE) /HPF Urine Mucus (Auto) SLIGHT (NEGATIVE) /HPF Urine Culture Reflexed YES (NO) Urine Glucose NEGATIVE (NEGATIVE) mg/dL 06/08/20 Range/Units 16:50 WBC 5.3 (4.0-10.5) K/mm3 RBC 3.92 L (4.1-5.6) M/mm3 Hgb 12.9 (12.5-18.0) gm/dl Hct 39.4 L (42-50) % MCV 100.5 H (78-100) fl MCH 32.9 H (26-32) pg MCHC 32.7 (32-36) g/dl RDW 13.5 (11.5-14.0) % Plt Count 198 (150-450) K/mm3 MPV 9.3 (7.5-11.0) fl Gran % 68.5 H (36.0-66.0) % Eos # (Auto) 0.31 (0-0.5) Absolute Lymphs (auto) 1.08 (1.0-4.6) Absolute Monos (auto) 0.26 (0.0-1.3) Lymphocytes % 20.5 L (24.0-44.0) % Monocytes % 4.9 (0.0-12.0) % Eosinophils % 5.9 H (0.00-5.0) % Basophils % 0.2 (0.0-0.4) % Absolute Granulocytes 3.62 (1.4-6.9) Basophils # 0.01 (0-0.4) Sodium (137-145) mmol/L Potassium (3.5-5.1) mmol/L Chloride (98-107) mmol/L Carbon Dioxide (22-30) mmol/L Anion Gap (5-15) MEQ/L BUN (9-20) mg/dL Creatinine (0.66-1.25) mg/dL Estimated GFR ML/MIN Glucose (74-106) mg/dL Calcium (8.4-10.2) mg/dL Magnesium (1.6-2.3) mg/dL Total Bilirubin (0.2-1.3) mg/dL AST (17-59) U/L ALT (0-50) U/L Alkaline Phosphatase (38-126) U/L Troponin I (0.000-0.034) ng/mL Serum Total Protein (6.3-8.2) g/dL Albumin (3.5-5.0) g/dL Urine Color (YELLOW) Urine Appearance (CLEAR) Urine pH (5-6) Ur Specific [place] (1.005-1.025) Urine Protein (Negative) Urine Ketones (NEGATIVE) Urine Blood (0-5) Dilshad/ul Urine Nitrite (NEGATIVE) Urine Bilirubin (NEGATIVE) Urine Urobilinogen (0-1) mg/dL Ur Leukocyte Esterase (NEGATIVE) Urine WBC (Auto) (0-5) /HPF Urine RBC (Auto) (0-2) /HPF U Epithel Cells (Auto) (FEW) /HPF Urine Bacteria (Auto) (NEGATIVE) /HPF Urine Mucus (Auto) (NEGATIVE) /HPF Urine Culture Reflexed (NO) Urine Glucose (NEGATIVE) mg/dL - Progress Progress: improved Progress Note: 06/08/20 19:25 Assessed. He feels well. UA significant for urinary tract infection. We intended to administer ciprofloxacin however this interacts with patient's trazodone causing prolonged QT. We intended to give patient ceftriaxone however patient is allergic to beta-lactam antibiotics. Our next option was Macrobid. Dose was administered here prescription was forwarded to patient's pharmacy. Urine cultures pending. Patient requesting discharge. Patient declined admission. It was later found that patient had an indwelling Ibarra catheter 1 month ago while he was hospitalized in the intensive care unit. Patient was intubated at that time. Cipro was her choice due to its pseudomonal coverage. Will discharge home. Patient family member is a nurse who will check up on patient periodically to assess for improvement. Patient agrees to follow-up with his primary care doctor within 48 hours for reevaluation. Patient understands to return to our ED if symptoms persist or worsen or if he develops new concerning symptoms. Counseled pt/family regarding: lab results, diagnosis, need for follow-up, rad results - Departure Departure Disposition: Home Clinical Impression: UTI (urinary tract infection) Condition: Stable Critical Care Time: No Referrals: DEN PIMENTEL MD [Primary Care Provider] - Additional Instructions: Discharge/Care Plan FRANKIE BUSTOS JR was seen on 06/08/20 in the Emergency Room. The patient was counseled regarding Diagnosis,Lab results, Imaging studies, need for follow up and when to return to the Emergency Room. Prescriptions given: Discharge Note I have spoken with the patient and/or caregivers. I have explained the patient's condition, diagnosis and treatment plan based on the information available to me at this time. I have answered the patient's and/or caregiver's questions and addressed any concerns. The patient and/or caregivers have as good understanding of the patient's diagnosis, condition and treatment plan as can be expected at this point. The vital signs have been stable. The patient's condition is stable and appropriate for discharge from the emergency department. The patient will pursue further outpatient evaluation with the primary care physician or other designated or consulting physician as outlined in the discharge instructions. The patient and/or caregivers are agreeable to this plan of care and follow-up instructions have been explained in detail. The patient and/or caregivers have received these instruction. The patient/and or caregivers are aware that any significant change in condition or worsening of symptoms should prompt an immediate return to this or the closest emergency department or call 911. Prescriptions: Nitrofurantoin Macro 100 mg [Macrobid 100MG Capsule] 100 mg PO BID 7 Days #14 cap
[2020-06-08 19:05] VITALS: BP 126/77; PULSE 71
[2020-06-08] MEDS ORDERED: Cipro 500 MG ONE (19:15)
[2020-06-08] MEDS ORDERED: Macrobid 100MG Capsule PO ONE (19:18)
[2020-06-08] MEDS ORDERED: Macrobid 100MG Capsule ONE (19:23)
[2020-06-08 19:24] VITALS: O2SAT 96
== END 2020-06-08 19:34 | disposition home or self-care (01) ==
LOC: ED 16:28
DX: N39.0 Urinary tract infection, site not specified (principal); I10 Essential (primary) hypertension; I25.10 Atherosclerotic heart disease of native coronary artery without angina pectoris; J44.9 Chronic obstructive pulmonary disease, unspecified; I25.2 Old myocardial infarction; Z86.14 Personal history of Methicillin resistant Staphylococcus aureus infection; Z87.898 Personal history of other specified conditions; G62.9 Polyneuropathy, unspecified; M06.9 Rheumatoid arthritis, unspecified
CPT/HCPCS: 36000; 36415; 80053; 81001; 83735; 84484; 85025; 87077; 87086; 87186; 99284; A9270-GY

== ENCOUNTER 2024-03-22 05:27 | Observation (INO) | payer MEDICARE, OTHER ==
[2024-03-22] MEDS ORDERED: Sodium Chloride 0.9% 1000 ML 1,000 ML ONE (06:23)
[2024-03-22] MEDS ORDERED: Hydromorphone 1 mg/ml Injection ONE (06:23)
[2024-03-22] MEDS ORDERED: Zofran 4 MG/2 ML VIAL ONE (06:23)
[2024-03-22] MEDS: Sodium Chloride 0.9% 1000 ML 1,000 ML IV STA (06:27)
[2024-03-22] MEDS: Zofran 4 MG/2 ML VIAL IV ONE (06:28)
[2024-03-22] MEDS: Hydromorphone 1 mg/ml Injection IV ONE (06:28)
--- NOTE | 2024-03-22 06:34 | ERPHSYRPT ---
- History of Present Illness Source: patient, family Exam Limitations: no limitations Patient Subjective Stated Complaint: pt states he has rash and open leny to bilat lower legs and swelling and pain in his toe- 2nd digit rt foot Triage Nursing Assessment: pt alert and oriented, answers questions approp. pt ambulates into room with limping gait. respirations nonlabored. skin warm and dry. multiple scabs and rash to bilat lower ext. redness and ulcerations to rt lower leg. redness and swelling to 2nd digit rt foot with ulceration to bottom of 2nd digit, small amt of drainage from toenailpedal pulses bilat wnl Timing/Duration: week(s) (Present for weeks), worse Quality: painful Severity: moderate Location: extremities (Bilateral feet right side worse than left) Possible Causes: other (Vasculitis, osteomyelitis) Associated Symptoms: change in skin texture (Bilateral lower extremities worse on the right than the left) Hx Tetanus, Diphtheria Vaccination/Date Given: Yes Hx Influenza Vaccination/Date Given: Yes Hx Pneumococcal Vaccination/Date Given: Yes Immunizations Up to Date: Yes <MATT BARNARD - Last Filed: 03/22/24 06:27> <MEAGAN MCNEAL - Last Filed: 03/22/24 07:46> - History of Present Illness Time Seen by Provider: 03/22/24 06:00 Physician History: This is a noncompliant white male patient who is obese and on his own decided to stop all of his medications. He has no primary care provider and has an appointment to see Dr. Mayorga for the first time on March 27, 2024. Patient, a few weeks ago, was seen up in [place] at [facility] where, per patient family report, states that he was diagnosed with bilateral lower extremity rash, leg swelling and MRSA. The patient underwent a skin biopsy but he is not aware of the clinical impression and findings of that skin biopsy. The family member provided additional, independent history as this patient does not recall all the events. Patient takes no medications chronically. He is allergic to vancomycin cilastatin, codeine, imipenem and meperidine. However, he has had fentanyl, morphine and Dilaudid in the past which she has tolerated. In the last few days pain in his feet and specifically right foot second toe has increased. The right toe is very red warm swollen and has drainage from it. He describes the pain as a sharp throbbing pain that worsens when walking. Patient denies fever. Patient denies chest pain. Patient denies shortness of breath. Patient has multiple medical issues including peripheral neuropathy, arrhythmia, COPD, arthritis, coronary artery disease (CABG, angioplasty and cardiac stents) (MATT BARNARD) Allergies/Adverse Reactions: cefdinir Allergy (Severe, Verified 03/22/24 06:48) Rash cilastatin sodium [From Primaxin IV] Allergy (Severe, Verified 03/22/24 06:07) Hives vancomycin Allergy (Severe, Verified 03/22/24 06:07) Swelling of Face codeine Allergy (Mild, Verified 03/22/24 06:07) imipenem [From Primaxin IV] Allergy (Mild, Verified 03/22/24 06:07) meperidine HCl [From Demerol] Allergy (Mild, Verified 03/22/24 06:07) Home Medications: Prednisone 10 mg [Deltasone 10 mg] 10 mg PO UD 03/22/24 [History] Travel Risk - International Travel Have you traveled outside of the country in past 3 weeks: No - Emerging Infectious Disease Are you exhibiting symptoms associated with any current EIDs: No <MATT BARNARD - Last Filed: 03/22/24 06:27> - Review of Systems Constitutional: No Symptoms Eyes: No Symptoms Ears, Nose, & Throat: No Symptoms Respiratory: No Symptoms Cardiac: No Symptoms Abdominal/Gastrointestinal: No Symptoms Genitourinary Symptoms: No Symptoms Skin: Cellulitis (Right foot second toe), Pruritis, Rash, Skin Lesions, Other (Vasculitic appearing skin rash bilateral lower extremities below the knees) Neurological: No Symptoms Psychological: No Symptoms Endocrine: No Symptoms Hematologic/Lymphatic: No Symptoms Immunological/Allergic: No Symptoms All Other Systems: Reviewed and Negative <MATT BARNARD - Last Filed: 03/22/24 06:27> - Past Medical History Pertinent Past Medical History: Yes Neurological History: Peripheral Neuropathy ENT History: No Pertinent History Cardiac History: Arrhythmia, Coronary Artery Disease, High Cholesterol, Hypertension, Myocardial Infarction ([place]) Respiratory History: Other, COPD Endocrine Medical History: Other Musculoskeletal History: Arthritis, Fractures, Rheumatoid Arthritis GI Medical History: Diverticulitis, Hernia, Other History: No Pertinent History Psycho-Social History: Other Male Reproductive Disorders: No Pertinent History Other Medical History: states stents x 3 and angioplasty, MRSA, clot that went to his bowel. restless legs. 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 neck and back fx. borderline diabetic. black lung - Past Surgical History Past Surgical History: Yes Neuro Surgical History: No Pertinent History Cardiac: Angioplasty, CABG, Cardiac Catheterization, Cardiac Stent Respiratory: No Pertinent History Gastrointestinal: Bowel Surgery, Colon Resection, Hernia Repair, Other Genitourinary: No Pertinent History Musculoskeletal: Orthopedic Surgery Male Surgical History: No Pertinent History Other Surgical History: back surgery, several abdominal surgeries over 8 years Significant Family History: heart disease, hypertension - Social History Smoking Status: Former smoker Exposure to second hand smoke: No Alcohol Use: yes Drug Use: marijuana Patient Lives Alone: No - Social Determinants of Health Will the patient participate in the screening: Declined to provide <MATT BARNARD - Last Filed: 03/22/24 06:27> - Physical Exam General Appearance: mild distress, alert, anxiety, obese Eye Exam: PERRL/EOMI, eyes nml inspection Ears, Nose, Throat Exam: normal ENT inspection, moist mucous membranes Neck Exam: normal inspection, non-tender, supple, full range of motion Respiratory Exam: normal breath sounds, lungs clear, airway intact, No chest tenderness, No respiratory distress Cardiovascular Exam: regular rate/rhythm, normal heart sounds, normal peripheral pulses (Patient has palpable pedal pulses bilaterally) Gastrointestinal/Abdomen Exam: soft, normal bowel sounds, No tenderness Rectal Exam: not done Back Exam: normal inspection, normal range of motion, No CVA tenderness, No vertebral tenderness Extremity Exam: normal range of motion, pelvis stable, swelling (Bilateral lower extremities below the knee right worse than left), tenderness (Bilateral feet right foot second toe worse than left foot), other (Multiple bilateral lower extremity below the knee vasculitic appearing skin lesions. 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, normal mood/affect Skin Exam: rash (Vasculitic appearing) Lymphatic Exam: No adenopathy SpO2 Interpretation: borderline oxygenation SpO2: 94 O2 Delivery: Room Air <MATT BARNARD - Last Filed: 03/22/24 06:27> - Nursing Vital Signs Nursing Vital Signs: Initial Vital Signs Temperature 97.5 F 03/22/24 05:33 Pulse Rate 78 03/22/24 05:33 Respiratory Rate 16 03/22/24 05:33 Blood Pressure 119/71 03/22/24 05:33 O2 Sat by Pulse Oximetry 94 L 03/22/24 05:33 Pain Scale Pain Intensity 8 Ordered Tests: Active Orders 24 hr Category Date Time Status BLOOD CULTURE Stat Lab 03/22/24 06:32 Received CBC W DIFF Stat Lab 03/22/24 06:20 Completed CMP Stat Lab 03/22/24 06:20 Completed CULTURE,WOUND Stat Lab 03/22/24 06:38 Ordered D-DIMER QUANTITATIVE Stat Lab 03/22/24 06:20 Completed ESR [Erythrocyte Sedimentation Rate] Stat Lab 03/22/24 06:20 Completed Lactic Acid Stat Lab 03/22/24 06:15 Completed Uric Acid Stat Lab 03/22/24 06:20 Completed Medication Summary Generic Name Dose Route Start Last Admin Trade Name Freq PRN Reason Stop Dose Admin Linezolid 300 mls @ 150 mls/hr 03/22/24 10:00 Zyvox 600 Mg Iv Premix IV 04/21/24 09:59 Q12HT MEME Discontinued Medications Generic Name Dose Route Start Last Admin Trade Name Freq PRN Reason Stop Dose Admin Hydromorphone HCl Confirm 03/22/24 06:23 Hydromorphone 1 Mg/1ml Inj Administered 03/22/24 06:24 Dose 1 mg .ROUTE .STK-MED ONE Hydromorphone HCl 1 mg 03/22/24 06:25 03/22/24 06:28 Hydromorphone 1 Mg/1ml Inj IV 03/22/24 06:26 1 mg STAT ONE Administration Sodium Chloride 1,000 mls @ 999 mls/hr 03/22/24 06:13 03/22/24 06:27 Sodium Chloride 0.9% 1000 Ml IV 03/22/24 07:13 999 mls/hr .Q1H1M STA Administration Sodium Chloride Confirm 03/22/24 06:23 Sodium Chloride 0.9% 1000 Ml Administered 03/22/24 06:24 Dose 1,000 mls @ ud .ROUTE .STK-MED ONE Ondansetron HCl 4 mg 03/22/24 06:13 03/22/24 06:28 Ondansetron Hcl 4 Mg/2 Ml Vial IV 03/22/24 06:14 4 mg STAT ONE Administration Ondansetron HCl Confirm 03/22/24 06:23 Ondansetron Hcl 4 Mg/2 Ml Vial Administered 03/22/24 06:24 Dose 4 mg .ROUTE .STK-MED ONE Prednisone 40 mg 03/22/24 07:31 Prednisone 20 Mg Tablet PO 03/22/24 07:32 STAT ONE Lab/Rad Data: Laboratory Result Diagrams 03/22/24 06:20 03/22/24 06:20 Laboratory Results 03/22/24 03/22/24 03/22/24 Range/Units 06:20 06:20 06:20 WBC (4.23-9.07) x10^3/uL RBC (4.63-6.08) x10^6/uL Hgb (13.7-17.5) g/dL Hct (40.1-51.0) % MCV (79.0-92.2) fL MCH (25.7-32.2) pg MCHC (32.3-36.5) g/dL RDW (11.6-14.4) % Plt Count (163-337) x10^3/uL MPV (9.4-12.4) fL Gran % (34.0-67.9) % Immature Gran % (Auto) (0.001-0.429) % Nucleat RBC Rel Count (0.00-0.2) % Eos # (Auto) (0.04-0.54) x10^3/uL Immature Gran # (Auto) (0.001-0.031) x10^3u/L Absolute Lymphs (auto) (1.32-3.57) x10^3/uL Absolute Monos (auto) (0.30-0.82) x10^3/uL Absolute Nucleated RBC (0.00-0.012) x10^3u/L Lymphocytes % (21.8-53.1) % Monocytes % (5.3-12.2) % Eosinophils % (0.8-7.0) % Basophils % (0.2-1.2) % Absolute Granulocytes (1.78-5.38) x10^3/uL Basophils # (0.01-0.08) x10^3/uL ESR 36 H (0-15) mm/hr D-Dimer 0.81 H* (0.0-0.50) mg/L Sodium 136 (135-145) mmol/L Potassium 4.0 (3.5-5.1) mmol/L Chloride 99 (98-107) mmol/L Carbon Dioxide 27 (22-30) mmol/L Anion Gap 13.9 (5-15) MEQ/L BUN 38 H (9-20) mg/dL Creatinine 1.08 (0.66-1.25) mg/dL Estimated GFR 68.9 ML/MIN Glucose 126 H (74-106) mg/dL Lactic Acid (0.4-2.0) Uric Acid 10.0 H (3.5-7.2) mg/dL Calcium 9.0 (8.4-10.2) mg/dL Total Bilirubin 0.30 (0.2-1.3) mg/dL AST 34 (17-59) U/L ALT 69 H (0-50) U/L Alkaline Phosphatase 93 (38-126) U/L Serum Total Protein 6.8 (6.3-8.2) g/dL Albumin 3.9 (3.5-5.0) g/dL 03/22/24 03/22/24 Range/Units 06:20 06:15 WBC 12.9 H (4.23-9.07) x10^3/uL RBC 5.00 (4.63-6.08) x10^6/uL Hgb 16.3 (13.7-17.5) g/dL Hct 48.3 (40.1-51.0) % MCV 96.6 H (79.0-92.2) fL MCH 32.6 H (25.7-32.2) pg MCHC 33.7 (32.3-36.5) g/dL RDW 12.7 (11.6-14.4) % Plt Count 241 (163-337) x10^3/uL MPV 10.2 (9.4-12.4) fL Gran % 70.2 H (34.0-67.9) % Immature Gran % (Auto) 0.7 H (0.001-0.429) % Nucleat RBC Rel Count 0.0 (0.00-0.2) % Eos # (Auto) 0.03 L (0.04-0.54) x10^3/uL Immature Gran # (Auto) 0.09 H (0.001-0.031) x10^3u/L Absolute Lymphs (auto) 2.92 (1.32-3.57) x10^3/uL Absolute Monos (auto) 0.76 (0.30-0.82) x10^3/uL Absolute Nucleated RBC 0.00 (0.00-0.012) x10^3u/L Lymphocytes % 22.7 (21.8-53.1) % Monocytes % 5.9 (5.3-12.2) % Eosinophils % 0.2 L (0.8-7.0) % Basophils % 0.3 (0.2-1.2) % Absolute Granulocytes 9.02 H (1.78-5.38) x10^3/uL Basophils # 0.04 (0.01-0.08) x10^3/uL ESR (0-15) mm/hr D-Dimer (0.0-0.50) mg/L Sodium (135-145) mmol/L Potassium (3.5-5.1) mmol/L Chloride (98-107) mmol/L Carbon Dioxide (22-30) mmol/L Anion Gap (5-15) MEQ/L BUN (9-20) mg/dL Creatinine (0.66-1.25) mg/dL Estimated GFR ML/MIN Glucose (74-106) mg/dL Lactic Acid 1.9 (0.4-2.0) Uric Acid (3.5-7.2) mg/dL Calcium (8.4-10.2) mg/dL Total Bilirubin (0.2-1.3) mg/dL AST (17-59) U/L ALT (0-50) U/L Alkaline Phosphatase (38-126) U/L Serum Total Protein (6.3-8.2) g/dL Albumin (3.5-5.0) g/dL - Progress Progress: improved, pain not gone completely, re-examined <MATT BARNARD - Last Filed: 03/22/24 06:27> - Progress Discussed with .: Other (surinder) Will see patient in: hospital (observation) Counseled pt/family regarding: lab results, diagnosis, need for follow-up <MEAGAN MCNEAL - Last Filed: 03/22/24 07:46> - Progress Progress Note: 03/22/24 06:51 My medical decision making and the assignment of moderate to high complexity to this patient's medical issue today is based on review of the patient's past medical history, review of the patient's medication list, review of patient drug allergy list, history present illness and physical findings on examination. The workup in this patient includes placement of an intravenous line, infusion of normal saline solution, lactic acid level, CBC, CMP, sedimentation rate, uric acid level, wound culture, blood culture, infusion of 1 g Rocephin and oral Bactrim, C-reactive protein, ANCA level. Differential diagnosis includes but not limited to gangrenous toe, vasculitis, cellulitis, MRSA I am transferring care of this patient to Dr. Mcneal at shift change. He will follow-up on laboratory data results and make final disposition. (MATT BARNARD) Assumed care at [address] Barnard. Patient's white count elevated at 12.9, platelets normal, ESR elevated, uric acid 10, normal kidney function, mildly elevated AST at 69 and D-dimer elevated at 0.81. D-dimer is within normal range when age-adjusted showed no further imaging performed at this time. Patient does have a recent history of being MRSA positive per patient report at recent admission at [facility] in [place]. He has multiple medication allergies including vancomycin so I will start linezolid at this time. I did call pharmacy to make sure we had this and we do have this available. I will reach out to hospitalist team to discuss admission for further workup with arterial studies, podiatry consult and likely MRI with continued IV antibiotics. 03/22/24 07:37 Dr. Viera accepts at 0744. 03/22/24 07:46 (MEAGAN MCNEAL) Medical Desision Making - Independent Historian Additional History obtained from: Family - Risk of complications The pt has a high risk of morbidity or mortality based on: Decision regarding hospitilization or escalation of hosp level of care <MATT BARNARD - Last Filed: 03/22/24 06:27> - Discussion of managment Care discussed with:: hospitalist Reviewed:: Test results, Need for additional workup Agreed on:: Treatment plan, place in obs Will see patient: in hospital - Diagnostic Testing Diagnostic test were ordered, analyzed, and reviewed by me: Yes Radiological Interpretation: Interpreted by me - Risk of complications The pt has a mod risk of morbidity or mortality based on: Need for prescription drug management <MEAGAN MCNEAL - Last Filed: 03/22/24 07:46> - Departure Departure Disposition: Observation Critical Care Time: No <MATT BARNARD - Last Filed: 03/22/24 06:27> <MEAGAN MCNEAL - Last Filed: 03/22/24 07:46> - Departure Clinical Impression: Cellulitis, Arterial insufficiency of lower extremity, Vasculitis Condition: Fair Referrals: DEN PIMENTEL MD [Primary Care Provider] - Follow up/PCP as directed Instructions: Wound Care (DC)
[2024-03-22 06:36] LABS: Absolute Neutrophil Ct (ANC) 9.02 x10^3/uL (1.78-5.38); BASOPHIL % 0.3 % (0.2-1.2); Basophil (Absolute #) 0.04 x10^3/uL (0.01-0.08); Eosinophil % 0.2 % (0.8-7.0); Eosinophil (Absolute #) 0.03 x10^3/uL (0.04-0.54); Hematocrit 48.3 % (40.1-51.0); Hemoglobin 16.3 g/dL (13.7-17.5); IMMATURE GRAN # 0.09 x10^3u/L (0.001-0.031); IMMATURE GRAN % 0.7 % (0.001-0.429); Lymphocyte (Absolute #) 2.92 x10^3/uL (1.32-3.57); Lymphocytes % 22.7 % (21.8-53.1); Mean Cell Volume 96.6 fL (79.0-92.2); Mean Corpuscular Hemoglobin 32.6 pg (25.7-32.2); Mean Corpuscular Hgb Concent. 33.7 g/dL (32.3-36.5); Mean Platelet Volume 10.2 fL (9.4-12.4); Monocyte (Absolute #) 0.76 x10^3/uL (0.30-0.82); Monocytes % 5.9 % (5.3-12.2); Neutrophil % 70.2 % (34.0-67.9); Platelet Count 241 x10^3/uL (163-337); Red Cell Distribution Width 12.7 % (11.6-14.4); White Blood Count 12.9 x10^3/uL (4.23-9.07)
[2024-03-22 06:49] LABS: ALBUMIN 3.9 g/dL (3.5-5.0); ANION GAP 13.9 MEQ/L (5-15); BILIRUBIN,TOTAL 0.3 mg/dL (0.2-1.3); Creatinine 1 1.08 mg/dL (0.66-1.25); EST GLOMERULAR FILTRATION RATE 68.9 ML/MIN; Total Protein 6.8 g/dL (6.3-8.2)
[2024-03-22] MEDS ORDERED: DELTASONE 20 MG ONE (08:33)
[2024-03-22] MEDS: DELTASONE 20 MG PO ONE (08:34)
[2024-03-22] MEDS: Zyvox 600 MG IV PREMIX*** 300 ML IV SCH (08:46)
--- NOTE | 2024-03-22 12:39 | PCM.HP ---
History of Present Illness - Chief Complaint Chief Complaint: vasculitis Date: 03/22/24 History of Present Illness: Mr.HALE WILDER is a 83 year old male with PMHX of peripheral neuropathy, arrhythmia, COPD, arthritis, coronary artery disease (CABG, angioplasty and cardiac stents), obesity, and drinks 3 beers daily. He was brought to the ER today as in the last few days pain in his feet and specifically right foot second toe has increased. he has multiple lesions of BLLE in various stages of healing. The right toe is very red warm swollen and has drainage from it. He describes the pain as a sharp, throbbing and shooting that worsens with walking. He is a noncompliant and on his own decided to stop all of his medications. He has no primary care provider and has an appointment to see Dr. Mayorga for the first time on March 27, 2024. Patient was seen a few weeks ago in [place] at [facility] where, per patient family report, states that he was diagnosed with bilateral lower extremity rash, leg swelling,and MRSA. It was originally thought to be an allergic reaction from antibiotics. The patient underwent a skin biopsy but he is not aware of the clinical impression and findings of that skin biopsy. The family member provided additional, independent history as this patient does not recall all the events. Patient takes no medications chronically. He has many allergy to meds. Podiatry consulted. We do not have US here on the weekends to do venous or arterial duplex. XR of right foot ordered. Uric acid elevated and steroids started IV. Pt placed NPO in case podiatry would like to do a procedure. Antibiotics and pain meds started in ER and will continue with same plan of care. He denies CP, SOB, abd. pain, N/V/D. - Review of Systems Constitutional: No Fever, No Chills Eyes: No Symptoms Ears, Nose, & Throat: No Symptoms Respiratory: No Cough, No Short Of Breath Cardiac: No Chest Pain, No Edema, No Syncope Abdominal/Gastrointestinal: No Abdominal Pain, No Nausea, No Vomiting, No Diarrhea Genitourinary Symptoms: No Dysuria Musculoskeletal: No Back Pain, No Neck Pain Skin: Skin Lesions (BLLE, right foot 2nd toe redness and edema), No Rash Neurological: No Dizziness, No Focal Weakness, No Sensory Changes Psychological: No Symptoms Endocrine: No Symptoms Hematologic/Lymphatic: No Symptoms Immunological/Allergic: No Symptoms Medications & Allergies Home Medications: Home Medication List Prednisone 10 mg [Deltasone 10 mg] 10 mg PO UD 03/22/24 [History Confirmed 03/22/24] Allergies/Adverse Reactions: Allergies Allergy/AdvReac Type Severity Reaction Status Date / Time cefdinir Allergy Severe Rash Verified 03/22/24 06:48 cilastatin sodium Allergy Severe Hives Verified 03/22/24 06:07 [From Primaxin IV] vancomycin Allergy Severe Swelling Verified 03/22/24 06:07 of Face codeine Allergy Mild Verified 03/22/24 06:07 imipenem [From Primaxin IV] Allergy Mild Verified 03/22/24 06:07 meperidine HCl [From Demerol] Allergy Mild Verified 03/22/24 06:07 - Past Medical History Past Medical History: Yes Neurological History: Peripheral Neuropathy ENT History: No Pertinent History Cardiac History: Arrhythmia, Coronary Artery Disease, High Cholesterol, Hypertension, Myocardial Infarction ([place]) Respiratory History: Other, COPD Endocrine Medical History: Other Musculoskelatal History: Arthritis, Fractures, Rheumatoid Arthritis GI Medical History: Diverticulitis, Hernia, Other History: No Pertinent History Pyscho-Social History: Other Male Reproductive Disorders: No Pertinent History Comment: states stents x 3 and angioplasty, MRSA, clot that went to his bowel. restless legs. 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 neck and back fx. borderline diabetic. black lung - Past Surgical History Past Surgical History: Yes Neuro Surgical History: No Pertinent History Cardiac History: Angioplasty, CABG, Cardiac Catheterization, Cardiac Stent Respiratory Surgery: No Pertinent History GI Surgical History: Bowel Surgery, Colon Resection, Hernia Repair, Other Genitourinary Surgical Hx: No Pertinent History Musculskeletal Surgical Hx: Orthopedic Surgery Male Surgical History: No Pertinent History Other Surgical History: back surgery, several abdominal surgeries over 8 years Significant Family History: heart disease, hypertension - Social History Smoking Status: Former smoker Exposure to second hand smoke: No Alcohol: Daily Drug Use: marijuana - Social Determinants of Health Will the patient participate in the screening: Declined to provide - Physical Exam Vital Signs: Vital Signs - 24 hr Temp Pulse Resp BP BP Pulse Ox 03/22/24 09:47 96.3 F 80 12 116/64 97 03/22/24 09:00 12 113/65 03/22/24 08:30 74 20 128/73 07/20/24 08:01 74 24 143/80 03/22/24 07:30 78 12 119/72 82 L 03/22/24 07:11 94 L 03/22/24 05:33 97.5 F 78 16 119/71 94 L General Appearance: no apparent distress, alert, obese Neurologic Exam: alert, oriented x 3, cooperative, normal mood/affect, nml cerebellar function, nml station & gait, sensation nml, No motor deficits Eye Exam: PERRL/EOMI, eyes nml inspection Ears, Nose, Throat Exam: normal ENT inspection, TMs normal, pharynx normal, moist mucous membranes Neck Exam: normal inspection, non-tender, supple, full range of motion Respiratory Exam: normal breath sounds, lungs clear, No respiratory distress Cardiovascular Exam: regular rate/rhythm, normal heart sounds, normal peripheral pulses Gastrointestinal/Abdomen Exam: soft, normal bowel sounds, No tenderness, No mass Back Exam: normal inspection, normal range of motion, No CVA tenderness, No vertebral tenderness Extremity Exam: normal inspection, normal range of motion, pelvis stable Skin Exam: normal color (BLLE multiple lesions, right foot 2nd toe edema and erythema. Red flat rash on BLLE), warm, dry, other, No rash Lymphatic Exam: No adenopathy Results - Labs Lab/Micro Results: Lab Results-Last 24 Hours 03/22/24 03/22/24 03/22/24 Range/Units 06:15 06:20 06:20 WBC 12.9 H (4.23-9.07) x10^3/uL RBC 5.00 (4.63-6.08) x10^6/uL Hgb 16.3 (13.7-17.5) g/dL Hct 48.3 (40.1-51.0) % MCV 96.6 H (79.0-92.2) fL MCH 32.6 H (25.7-32.2) pg MCHC 33.7 (32.3-36.5) g/dL RDW 12.7 (11.6-14.4) % Plt Count 241 (163-337) x10^3/uL MPV 10.2 (9.4-12.4) fL Gran % 70.2 H (34.0-67.9) % Immature Gran % (Auto) 0.7 H (0.001-0.429) % Nucleat RBC Rel Count 0.0 (0.00-0.2) % Eos # (Auto) 0.03 L (0.04-0.54) x10^3/uL Immature Gran # (Auto) 0.09 H (0.001-0.031) x10^3u/L Absolute Lymphs (auto) 2.92 (1.32-3.57) x10^3/uL Absolute Monos (auto) 0.76 (0.30-0.82) x10^3/uL Absolute Nucleated RBC 0.00 (0.00-0.012) x10^3u/L Lymphocytes % 22.7 (21.8-53.1) % Monocytes % 5.9 (5.3-12.2) % Eosinophils % 0.2 L (0.8-7.0) % Basophils % 0.3 (0.2-1.2) % Absolute Granulocytes 9.02 H (1.78-5.38) x10^3/uL Basophils # 0.04 (0.01-0.08) x10^3/uL ESR (0-15) mm/hr D-Dimer (0.0-0.50) mg/L Sodium 136 (135-145) mmol/L Potassium 4.0 (3.5-5.1) mmol/L Chloride 99 (98-107) mmol/L Carbon Dioxide 27 (22-30) mmol/L Anion Gap 13.9 (5-15) MEQ/L BUN 38 H (9-20) mg/dL Creatinine 1.08 (0.66-1.25) mg/dL Estimated GFR 68.9 ML/MIN Glucose 126 H (74-106) mg/dL Lactic Acid 1.9 (0.4-2.0) Uric Acid 10.0 H (3.5-7.2) mg/dL Calcium 9.0 (8.4-10.2) mg/dL Total Bilirubin 0.30 (0.2-1.3) mg/dL AST 34 (17-59) U/L ALT 69 H (0-50) U/L Alkaline Phosphatase 93 (38-126) U/L Serum Total Protein 6.8 (6.3-8.2) g/dL Albumin 3.9 (3.5-5.0) g/dL 03/22/24 03/22/24 Range/Units 06:20 06:20 WBC (4.23-9.07) x10^3/uL RBC (4.63-6.08) x10^6/uL Hgb (13.7-17.5) g/dL Hct (40.1-51.0) % MCV (79.0-92.2) fL MCH (25.7-32.2) pg MCHC (32.3-36.5) g/dL RDW (11.6-14.4) % Plt Count (163-337) x10^3/uL MPV (9.4-12.4) fL Gran % (34.0-67.9) % Immature Gran % (Auto) (0.001-0.429) % Nucleat RBC Rel Count (0.00-0.2) % Eos # (Auto) (0.04-0.54) x10^3/uL Immature Gran # (Auto) (0.001-0.031) x10^3u/L Absolute Lymphs (auto) (1.32-3.57) x10^3/uL Absolute Monos (auto) (0.30-0.82) x10^3/uL Absolute Nucleated RBC (0.00-0.012) x10^3u/L Lymphocytes % (21.8-53.1) % Monocytes % (5.3-12.2) % Eosinophils % (0.8-7.0) % Basophils % (0.2-1.2) % Absolute Granulocytes (1.78-5.38) x10^3/uL Basophils # (0.01-0.08) x10^3/uL ESR 36 H (0-15) mm/hr D-Dimer 0.81 H* (0.0-0.50) mg/L Sodium (135-145) mmol/L Potassium (3.5-5.1) mmol/L Chloride (98-107) mmol/L Carbon Dioxide (22-30) mmol/L Anion Gap (5-15) MEQ/L BUN (9-20) mg/dL Creatinine (0.66-1.25) mg/dL Estimated GFR ML/MIN Glucose (74-106) mg/dL Lactic Acid (0.4-2.0) Uric Acid (3.5-7.2) mg/dL Calcium (8.4-10.2) mg/dL Total Bilirubin (0.2-1.3) mg/dL AST (17-59) U/L ALT (0-50) U/L Alkaline Phosphatase (38-126) U/L Serum Total Protein (6.3-8.2) g/dL Albumin (3.5-5.0) g/dL - Radiology Impressions Radiology Exams & Impressions: Radiology Procedures Category Date Time Status FOOT (2 VIEWS) Routine Exams 03/22/24 11:07 Ordered Assessment/Plan (1) Toe ulcer, right Current Visit: Yes Status: Acute Assessment & Plan: - Podiatry consulted - Venous and arterial duplex Sunday- as unavailable on the s - 2nd toe right foot dorsal aspect - IV antibiotics - XR RLE Code(s): L97.519 - NON-PRS CHRONIC ULCER OTH PRT RIGHT FOOT W UNSP SEVERITY (2) Leukocytosis Current Visit: Yes Status: Acute Assessment & Plan: - WBC 12.9 - 2:2 skin lesions BLLE Code(s): D72.829 - ELEVATED WHITE BLOOD CELL COUNT, UNSPECIFIED (3) Elevated d-dimer Current Visit: Yes Status: Acute Assessment & Plan: - D-Dimer 0.81 - Arterial and Venous duplex Sunday for further evaluation - no blood thinners at this time as pt may have procedure on 2nd toe RLE Code(s): R79.89 - OTHER SPECIFIED ABNORMAL FINDINGS OF BLOOD CHEMISTRY (4) Gout Current Visit: Yes Status: Acute Assessment & Plan: - uric acid 10.0 - IV steroids started Code(s): M10.9 - GOUT, UNSPECIFIED (5) Skin lesions Current Visit: Yes Status: Acute Assessment & Plan: - BLLE - Pics in chart - Podiatry consult - IV antibiotics, steroids Code(s): L98.9 - DISORDER OF THE SKIN AND SUBCUTANEOUS TISSUE, UNSPECIFIED (6) Rash Current Visit: Yes Status: Acute Assessment & Plan: - Unknown cause - BLLE Code(s): R21 - RASH AND OTHER NONSPECIFIC SKIN ERUPTION (7) BMI 31.0-31.9,adult Current Visit: Yes Status: Acute Assessment & Plan: - advised diet and exercise control VTE: SCD Next of Kin: Tegan Alicea Code status: Full D/C plan: 2-3 days Code(s): Z68.31 - BODY MASS INDEX [BMI] 31.0-31.9, ADULT
--- NOTE | 2024-03-22 13:40 | XRAY ---
CLINICAL HISTORY: right foot 2nd toe erythemia COMPARISON: None. TECHNIQUE: X-ray right foot AP, and lateral views FINDINGS: Subtle lucent line is seen at the distal phalanx of second toe. Soft tissue swelling seen along middle and distal phalanx of second toe. Small plantar calcaneal spur noted. Calcification of the distal Achilis tendon. 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 Normal bone density. No dislocation seen. Fat planes are intact. IMPRESSION: 1. Subtle lucent line is seen at the distal phalanx of second toe. Clinical correlation for focal tenderness and further workup is advised. 2. Soft tissue swelling seen along middle and distal phalanx of second toe. 3. Planter calcaneal spur. 4. Tendenopathy of distal Achilles tendon. 5. 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 6. MRI foot is advised if clinically indicated. DISCLAIMER:A subtle bone abnormality or fracture may not be readily apparent on x-rays, thus clinical correlation and further imaging including follow up CT, MRI, or follow up x-rays are advised as needed. Electronically Signed by: Jacey Hinds MD. (03/22/2024 13:36:47 EDT)
[2024-03-22] MEDS: Hydromorphone 1 mg/ml Injection IV PRN (14:08)
--- NOTE | 2024-03-22 14:27 | PCM.CONS ---
Podiatry HPI - Consult Date of Consultation Date: 03/22/24 Reason for Consult: OM second toe right foot, Venous insufficency with ulceration bilateral lower extremity. Consulting Provider: JUAN CANALES DPM - [facility] History of Present Illness: Jenaro is white male patient who is obese and on his own decided to stop all of his medications. He has no primary care provider and has an appointment to see Dr. Mayorga for the first time on March 27, 2024. Patient, a few weeks ago, was seen up in [place] at [facility] where, per patient family report, states that he was diagnosed with bilateral lower extremity rash, leg swelling and MRSA. The patient underwent a skin biopsy but he is not aware of the clinical impression and findings of that skin biopsy. The family member provided additional, independent history as this patient does not recall all the events. Patient takes no medications chronically. He is allergic to vancomycin cilastatin, codeine, imipenem and meperidine. However, he has had fentanyl, morphine and Dilaudid in the past which he has tolerated. In the last few days pain in his feet and specifically right foot second toe has increased. The right toe is very red warm swollen and has drainage from it. He describes the pain as a sharp throbbing pain that worsens when walking. Patient denies fever. Patient denies chest pain. Patient denies shortness of breath. 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, arrhythmia, COPD, arthritis, coronary artery disease (CABG, angioplasty and cardiac stents) Medications & Allergies Home Medications: Home Medication List Prednisone 10 mg [Deltasone 10 mg] 10 mg PO UD 03/22/24 [History Confirmed 03/22/24] Allergies/Adverse Reactions: Allergies Allergy/AdvReac Type Severity Reaction Status Date / Time cefdinir Allergy Severe Rash Verified 03/22/24 06:48 cilastatin sodium Allergy Severe Hives Verified 03/22/24 06:07 [From Primaxin IV] vancomycin Allergy Severe Swelling Verified 03/22/24 06:07 of Face codeine Allergy Mild Verified 03/22/24 06:07 imipenem [From Primaxin IV] Allergy Mild Verified 03/22/24 06:07 meperidine HCl [From Demerol] Allergy Mild Verified 03/22/24 06:07 - Past Medical History Past Medical History: Yes Neurological History: Peripheral Neuropathy ENT History: No Pertinent History Cardiac History: Arrhythmia, Coronary Artery Disease, High Cholesterol, Hypertension, Myocardial Infarction ([place]) Respiratory History: Other, COPD Endocrine Medical History: Other Musculoskelatal History: Arthritis, Fractures, Rheumatoid Arthritis GI Medical History: Diverticulitis, Hernia, Other History: No Pertinent History Pyscho-Social History: Other Male Reproductive Disorders: No Pertinent History Comment: states stents x 3 and angioplasty, MRSA, clot that went to his bowel. restless legs. 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 neck and back fx. borderline diabetic. black lung - Past Surgical History Past Surgical History: Yes Neuro Surgical History: No Pertinent History Cardiac History: Angioplasty, CABG, Cardiac Catheterization, Cardiac Stent Respiratory Surgery: No Pertinent History GI Surgical History: Bowel Surgery, Colon Resection, Hernia Repair, Other Genitourinary Surgical Hx: No Pertinent History Musculskeletal Surgical Hx: Orthopedic Surgery Male Surgical History: No Pertinent History Other Surgical History: back surgery, several abdominal surgeries over 8 years Significant Family History: heart disease, hypertension - Social History Smoking Status: Former smoker Exposure to second hand smoke: No Alcohol: Daily Drug Use: marijuana - Social Determinants of Health Will the patient participate in the screening: Declined to provide Physical Exam - General General Appearance: no apparent distress - Neuro Neurologic: Epicritic and protopathic (absent) - Vascular Peripheral Pulses: Posterior tibialis: 0, Dorsalis-Pedis: 1+ Capillary Refill Time: < 3 seconds Hair Growth: Symmetrical and Bilateral Varicosities: Positive Edema: Pitting Edema Degree: 1+ Skin: Supple, not atrophic (Wound 2nd toe measureing 0.4 x 0.6 x 0.1 predebridement. erythema extending to the MPJ. Mulitple venous insufficency ulcerations with eschar overlying the legs concerning for potential of combined venous and arterial ulcerations to the legs.) - Narrative Narrative Physical Exam: Podiatry Physical Exam Results - Labs Lab/Micro Results: Lab Results-Last 24 Hours 03/22/24 03/22/24 03/22/24 Range/Units 06:15 06:20 06:20 WBC 12.9 H (4.23-9.07) x10^3/uL RBC 5.00 (4.63-6.08) x10^6/uL Hgb 16.3 (13.7-17.5) g/dL Hct 48.3 (40.1-51.0) % MCV 96.6 H (79.0-92.2) fL MCH 32.6 H (25.7-32.2) pg MCHC 33.7 (32.3-36.5) g/dL RDW 12.7 (11.6-14.4) % Plt Count 241 (163-337) x10^3/uL MPV 10.2 (9.4-12.4) fL Gran % 70.2 H (34.0-67.9) % Immature Gran % (Auto) 0.7 H (0.001-0.429) % Nucleat RBC Rel Count 0.0 (0.00-0.2) % Eos # (Auto) 0.03 L (0.04-0.54) x10^3/uL Immature Gran # (Auto) 0.09 H (0.001-0.031) x10^3u/L Absolute Lymphs (auto) 2.92 (1.32-3.57) x10^3/uL Absolute Monos (auto) 0.76 (0.30-0.82) x10^3/uL Absolute Nucleated RBC 0.00 (0.00-0.012) x10^3u/L Lymphocytes % 22.7 (21.8-53.1) % Monocytes % 5.9 (5.3-12.2) % Eosinophils % 0.2 L (0.8-7.0) % Basophils % 0.3 (0.2-1.2) % Absolute Granulocytes 9.02 H (1.78-5.38) x10^3/uL Basophils # 0.04 (0.01-0.08) x10^3/uL ESR (0-15) mm/hr D-Dimer (0.0-0.50) mg/L Sodium 136 (135-145) mmol/L Potassium 4.0 (3.5-5.1) mmol/L Chloride 99 (98-107) mmol/L Carbon Dioxide 27 (22-30) mmol/L Anion Gap 13.9 (5-15) MEQ/L BUN 38 H (9-20) mg/dL Creatinine 1.08 (0.66-1.25) mg/dL Estimated GFR 68.9 ML/MIN Glucose 126 H (74-106) mg/dL Hemoglobin A1c (4.5-6.0) % Lactic Acid 1.9 (0.4-2.0) Uric Acid 10.0 H (3.5-7.2) mg/dL Calcium 9.0 (8.4-10.2) mg/dL Total Bilirubin 0.30 (0.2-1.3) mg/dL AST 34 (17-59) U/L ALT 69 H (0-50) U/L Alkaline Phosphatase 93 (38-126) U/L Serum Total Protein 6.8 (6.3-8.2) g/dL Albumin 3.9 (3.5-5.0) g/dL 03/22/24 03/22/24 03/22/24 Range/Units 06:20 06:20 06:20 WBC (4.23-9.07) x10^3/uL RBC (4.63-6.08) x10^6/uL Hgb (13.7-17.5) g/dL Hct (40.1-51.0) % MCV (79.0-92.2) fL MCH (25.7-32.2) pg MCHC (32.3-36.5) g/dL RDW (11.6-14.4) % Plt Count (163-337) x10^3/uL MPV (9.4-12.4) fL Gran % (34.0-67.9) % Immature Gran % (Auto) (0.001-0.429) % Nucleat RBC Rel Count (0.00-0.2) % Eos # (Auto) (0.04-0.54) x10^3/uL Immature Gran # (Auto) (0.001-0.031) x10^3u/L Absolute Lymphs (auto) (1.32-3.57) x10^3/uL Absolute Monos (auto) (0.30-0.82) x10^3/uL Absolute Nucleated RBC (0.00-0.012) x10^3u/L Lymphocytes % (21.8-53.1) % Monocytes % (5.3-12.2) % Eosinophils % (0.8-7.0) % Basophils % (0.2-1.2) % Absolute Granulocytes (1.78-5.38) x10^3/uL Basophils # (0.01-0.08) x10^3/uL ESR 36 H (0-15) mm/hr D-Dimer 0.81 H* (0.0-0.50) mg/L Sodium (135-145) mmol/L Potassium (3.5-5.1) mmol/L Chloride (98-107) mmol/L Carbon Dioxide (22-30) mmol/L Anion Gap (5-15) MEQ/L BUN (9-20) mg/dL Creatinine (0.66-1.25) mg/dL Estimated GFR ML/MIN Glucose (74-106) mg/dL Hemoglobin A1c 6.54 H (4.5-6.0) % Lactic Acid (0.4-2.0) Uric Acid (3.5-7.2) mg/dL Calcium (8.4-10.2) mg/dL Total Bilirubin (0.2-1.3) mg/dL AST (17-59) U/L ALT (0-50) U/L Alkaline Phosphatase (38-126) U/L Serum Total Protein (6.3-8.2) g/dL Albumin (3.5-5.0) g/dL - Radiology Impressions Radiology Exams & Impressions: Radiology Procedures Category Date Time Status ARTERIAL UNILAT/LTD LOWER EXT [US] Routine Exams 03/24/24 08:00 Ordered FOOT (2 VIEWS) Stat Exams 03/22/24 11:07 Completed Assessment/Plan (1) Osteomyelitis due to type 2 diabetes mellitus Current Visit: Yes Status: Acute Assessment & Plan: Initial patient examination and evaluation Radiographs reviewed demonstrating osteolysis of cortex of distal phalanx 2nd digit of the right foot. Wound correlates with this finding concerning for OM Clinical examination demonstrating positive purulence with a positive probe to bone CRP, A1c, trend WBCs At this time discussion held with patient given these findings. I discussed with the patient the etiology and treatment options for their bone infection. Treatment options include removal of the infected tissue (amputation) vs. 6-8 w eeks of IV antibiotics. They were educated that IV antibiotics may or may not be effective, and that bone remineralization is never certain. In addition to this, IV antibiotics would require a PICC line and daily infusions. Amputation is a more definitive approach, however there is a chance that the infection may still recur; antibiotics may still be used even after the amputation. Judging by the exam and patient's history, I recommended amputation of the 2nd digit ( open) with planned delayed closure of wound as a first-line approach. Allergic to vancomycin. Daptomycin and zosyn for Borad spectrum coverage with taper antibiotic regimen once preliminary cultures obtained. Culture obtained Cultures in the last 3-4 weeks have demonstrate indications of growth consistent with MRSA on presentation to [facility] consisting of Arterial dopplers and venous dopplers to assess for wound healing potential and ability to tolerate aggressive compression therapy. Vascular studies will be obtained prior to intervention to assess healing potential. Patient is in agreement. Place PICC line in preparation for d/c NPO sunday at 2230 for anticipated procedure 630 AM Sunday as patient is sole certified caregiver for who has recently had stroke Consent to read "open amputation 2nd digit right foot" Following with you Thank you for the consultation. Code(s): E11.69 - TYPE 2 DIABETES MELLITUS WITH OTHER SPECIFIED COMPLICATION; M86.9 - OSTEOMYELITIS, UNSPECIFIED (2) Uncontrolled diabetes mellitus Current Visit: Yes Status: Acute Code(s): QNE2044 - (3) Peripheral sensory neuropathy due to type 2 diabetes mellitus Current Visit: Yes Status: Acute Code(s): E11.42 - TYPE 2 DIABETES MELLITUS WITH DIABETIC POLYNEUROPATHY (4) PVD (peripheral vascular disease) Current Visit: Yes Status: Acute Code(s): I73.9 - PERIPHERAL VASCULAR DISEASE, UNSPECIFIED (5) Venous insufficiency Current Visit: Yes Status: Acute Code(s): I87.2 - VENOUS INSUFFICIENCY (CHRONIC) (PERIPHERAL) (6) Arterial insufficiency of lower extremity Current Visit: Yes Status: Acute Code(s): I73.9 - PERIPHERAL VASCULAR DISEASE, UNSPECIFIED (7) BMI 31.0-31.9,adult Current Visit: Yes Status: Acute Code(s): Z68.31 - BODY MASS INDEX [BMI] 31.0-31.9, ADULT (8) Cellulitis Current Visit: Yes Status: Acute Code(s): L03.90 - CELLULITIS, UNSPECIFIED (9) Leukocytosis Current Visit: Yes Status: Acute Code(s): D72.829 - ELEVATED WHITE BLOOD CELL COUNT, UNSPECIFIED (10) Skin lesions Current Visit: Yes Status: Acute Code(s): L98.9 - DISORDER OF THE SKIN AND SUBCUTANEOUS TISSUE, UNSPECIFIED (11) Toe ulcer, right Current Visit: Yes Status: Acute Code(s): L97.519 - NON-PRS CHRONIC ULCER OTH PRT RIGHT FOOT W UNSP SEVERITY
[2024-03-22] MEDS: PHARMACY DOSING REQUEST MC ONE ×2 (14:36→14:37)
[2024-03-22] MEDS: PIPERACILLIN/TAZOBACTAM 4.5 GM in Sodium Chloride 100ML MINI-BAG PLUS 100 ML IV SCH (15:49)
[2024-03-22] MEDS: solu-MEDROL 40 MG, Sterile H2O 10 ml 1 ML IV SCH (21:22)
[2024-03-23 06:09] LABS: Hematocrit 44.9 % (40.1-51.0); Hemoglobin 14.6 g/dL (13.7-17.5); Mean Cell Volume 100.4 fL (79.0-92.2); Mean Corpuscular Hemoglobin 32.7 pg (25.7-32.2); Mean Corpuscular Hgb Concent. 32.5 g/dL (32.3-36.5); Mean Platelet Volume 10.9 fL (9.4-12.4); Platelet Count 191 x10^3/uL (163-337); Red Blood Count 4.47 x10^6/uL (4.63-6.08); Red Cell Distribution Width 13.2 % (11.6-14.4); White Blood Count 11.4 x10^3/uL (4.23-9.07)
[2024-03-23 06:27] LABS: ALBUMIN 3.2 g/dL (3.5-5.0); ANION GAP 10.8 MEQ/L (5-15); BILIRUBIN,TOTAL 0.4 mg/dL (0.2-1.3); Calcium 8.2 mg/dL (8.4-10.2); Creatinine 1 1.01 mg/dL (0.66-1.25); EST GLOMERULAR FILTRATION RATE 74.7 ML/MIN; Potassium 4.4 mmol/L (3.5-5.1); Total Protein 5.8 g/dL (6.3-8.2)
--- NOTE | 2024-03-23 12:12 | PCM.NOTE ---
Date and Time: 03/23/24 1205 Subjective Assessment: 03/22/24 Mr.HALE WILDER is a 83 year old male with PMHX of peripheral neuropathy, arrhythmia, COPD, arthritis, coronary artery disease (CABG, angioplasty and cardiac stents), obesity, and drinks 3 beers daily. He was brought to the ER today as in the last few days pain in his feet and specifically right foot second toe has increased. he has multiple lesions of BLLE in various stages of healing. The right toe is very red warm swollen and has drainage from it. He describes the pain as a sharp, throbbing and shooting that worsens with walking. He is a noncompliant and on his own decided to stop all of his medications. He has no primary care provider and has an appointment to see Dr. Mayorga for the first time on March 27, 2024. Patient was seen a few weeks ago in [place] at [facility] where, per patient family report, states that he was diagnosed with bilateral lower extremity rash, leg swelling,and MRSA. It was originally thought to be an allergic reaction from antibiotics. The patient underwent a skin biopsy but he is not aware of the clinical impression and findings of that skin biopsy. The family member provided additional, independent history as this patient does not recall all the events. Patient takes no medications chronically. He has many allergy to meds. Podiatry consulted. We do not have US here on the weekends to do venous or arterial duplex. XR of right foot ordered. Uric acid elevated and steroids started IV. Pt placed NPO in case podiatry would like to do a procedure. Antibiotics and pain meds started in ER and will continue with same plan of care. He denies CP, SOB, abd. pain, N/V/D. 03/23/24 Pt resting in bed. Podiatry came to see pt yesterday and changed antibiotics to Zyvox and Zosyn, though note says otherwise, this was clarified and confirmed. Plan is for amputation of 2nd toe right foot tomorrow. He kong also have arterial and venous duplex tomorrow. Accuchecks and low dose s/s added today as his glucose is elevated. Rash and erythema has improved of BLLE. He denies CP, SOB, abd. pain, N/V/D. Stool softener added for constipation. - Review of Systems Constitutional: No Fever, No Chills Eyes: No Symptoms Ears, Nose, & Throat: No Symptoms Respiratory: No Cough, No Short Of Breath Cardiac: No Chest Pain, No Edema, No Syncope Abdominal/Gastrointestinal: Constipation, No Abdominal Pain, No Nausea, No Vomiting, No Diarrhea Genitourinary Symptoms: No Dysuria Musculoskeletal: No Back Pain, No Neck Pain Skin: Skin Lesions (BLLE multiple lesions, right foot 2nd toe edema and erythema. Red flat rash on BLLE)), No Rash Neurological: No Dizziness, No Focal Weakness, No Sensory Changes Psychological: No Symptoms Endocrine: No Symptoms Hematologic/Lymphatic: No Symptoms Immunological/Allergic: No Symptoms Objective Exam General Appearance: no apparent distress, alert Neurologic Exam: alert, oriented x 3, cooperative, normal mood/affect, nml cerebellar function, sensation nml, No motor deficits Skin Exam: normal color, warm, dry, other (BLLE multiple lesions, right foot 2nd toe edema and erythema. Red flat rash on BLLE.) Wound Assessment: Skin/Wound Assessment Wound/Incision Assessment Start: 03/22/24 09:19 Text: Status: Active Freq: Q6H Protocol: Document 03/23/24 08:30 JV (Rec: 03/23/24 09:47 JV [id number]) Wound/Incision Assessment Abdomen Wound Assessment Shift Assessment Wound Type scabbed wounds and surgical scar Wound Stage Non Pressure Wound Drainage Amount None General Appearance Open to air,Clean/Dry Surrounding Tissue [place] Comment surgical scar and scabbed wounds, surrounding skin CDI. Remains true BLE Wound Assessment Shift Assessment Wound Type rash/ulcerations Wound Stage Non Pressure Wound Drainage Amount None General Appearance Open to air,Reddened Surrounding Tissue [place],Purple Comment multiple scattered ulcerations & scabs to BLE, areas of red/ purple discoloration. Remains true Right Toe Wound Assessment Shift Assessment Wound Type ulceration bottom of right 2nd toe Wound Stage Non Pressure Wound Drainage Amount None General Appearance Open to air,Reddened,Blackened Surrounding Tissue [place] Comment ulceration to bottom of right 2nd toe. Remains true Wound Photo Photo Taken Yes Date: 03/22/24 Time: 01:30 Eye Exam: PERRL, EOMI, eyes nml inspection Ears, Nose, Throat Exam: normal ENT inspection, pharynx normal, moist mucous membranes Neck Exam: normal inspection, non-tender, supple, full range of motion Respiratory Exam: normal breath sounds, lungs clear, No respiratory distress Cardiovascular Exam: regular rate/rhythm, normal heart sounds Gastrointestinal/Abdomen Exam: soft, No tenderness, No mass Extremity Exam: normal inspection, normal range of motion Back Exam: normal inspection, normal range of motion, No CVA tenderness, No vertebral tenderness Male Genitalia Exam: deferred Rectal Exam: deferred Objective Data Vital Signs: Vital Signs - 24 hr Temp Pulse Resp BP Pulse Ox 03/23/24 11:08 96.8 F 63 18 126/60 93 L 03/23/24 06:58 97.6 F 78 19 134/70 92 L 03/23/24 04:00 98.1 F 63 18 126/57 95 03/23/24 00:00 97.8 F 98 H 18 131/65 97 03/22/24 19:48 96.3 F 77 18 138/71 95 Pain Assessment - Last Documented Pain Intensity 6 Pain Scale Used 0-10 Pain Scale Intake and Output: Intake & Output 03/21/24 03/22/24 03/23/24 03/24/24 11:59 11:59 11:59 11:59 Intake Total 2070 Output Total 1050 Balance 1020 Weight 99.7 kg Lab Results: Lab Results-Last 24 Hours 03/22/24 03/23/24 03/23/24 Range/Units 06:20 05:17 05:17 WBC 11.4 H (4.23-9.07) x10^3/uL RBC 4.47 L (4.63-6.08) x10^6/uL Hgb 14.6 (13.7-17.5) g/dL Hct 44.9 (40.1-51.0) % MCV 100.4 H (79.0-92.2) fL MCH 32.7 H (25.7-32.2) pg MCHC 32.5 (32.3-36.5) g/dL RDW 13.2 (11.6-14.4) % Plt Count 191 (163-337) x10^3/uL MPV 10.9 (9.4-12.4) fL Sodium 134 L (135-145) mmol/L Potassium 4.4 (3.5-5.1) mmol/L Chloride 102 (98-107) mmol/L Carbon Dioxide 26 (22-30) mmol/L Anion Gap 10.8 (5-15) MEQ/L BUN 28 H (9-20) mg/dL Creatinine 1.01 (0.66-1.25) mg/dL Estimated GFR 74.7 ML/MIN Glucose 290 H (74-106) mg/dL POC Glucometer (74 to 106) mg/dL Hemoglobin A1c 6.54 H (4.5-6.0) % Calcium 8.2 L (8.4-10.2) mg/dL Total Bilirubin 0.40 (0.2-1.3) mg/dL AST 56 (17-59) U/L ALT 89 H (0-50) U/L Alkaline Phosphatase 89 (38-126) U/L Serum Total Protein 5.8 L (6.3-8.2) g/dL Albumin 3.2 L (3.5-5.0) g/dL 03/23/24 03/23/24 Range/Units 08:41 11:00 WBC (4.23-9.07) x10^3/uL RBC (4.63-6.08) x10^6/uL Hgb (13.7-17.5) g/dL Hct (40.1-51.0) % MCV (79.0-92.2) fL MCH (25.7-32.2) pg MCHC (32.3-36.5) g/dL RDW (11.6-14.4) % Plt Count (163-337) x10^3/uL MPV (9.4-12.4) fL Sodium (135-145) mmol/L Potassium (3.5-5.1) mmol/L Chloride (98-107) mmol/L Carbon Dioxide (22-30) mmol/L Anion Gap (5-15) MEQ/L BUN (9-20) mg/dL Creatinine (0.66-1.25) mg/dL Estimated GFR ML/MIN Glucose (74-106) mg/dL POC Glucometer 189 H 165 H (74 to 106) mg/dL Hemoglobin A1c (4.5-6.0) % Calcium (8.4-10.2) mg/dL Total Bilirubin (0.2-1.3) mg/dL AST (17-59) U/L ALT (0-50) U/L Alkaline Phosphatase (38-126) U/L Serum Total Protein (6.3-8.2) g/dL Albumin (3.5-5.0) g/dL Radiology Exams: Radiology Procedures Category Date Time Status ARTERIAL UNILAT/LTD LOWER EXT [US] Routine Exams 03/24/24 08:00 Ordered FOOT (2 VIEWS) Stat Exams 03/22/24 11:07 Completed PICC LINE PLACEMENT Routine Exams 03/24/24 10:34 Ordered VENOUS UNILAT/LIMITED EXTREMIT [US] Routine Exams 03/24/24 08:00 Ordered Assessment/Plan (1) Toe ulcer, right Current Visit: Yes Status: Acute Code(s): L97.519 - NON-PRS CHRONIC ULCER OTH PRT RIGHT FOOT W UNSP SEVERITY (2) Leukocytosis Current Visit: Yes Status: Acute Code(s): D72.829 - ELEVATED WHITE BLOOD CELL COUNT, UNSPECIFIED (3) Elevated d-dimer Current Visit: Yes Status: Acute Code(s): R79.89 - OTHER SPECIFIED ABNORMAL FINDINGS OF BLOOD CHEMISTRY (4) Gout Current Visit: Yes Status: Acute Code(s): M10.9 - GOUT, UNSPECIFIED (5) Skin lesions Current Visit: Yes Status: Acute Code(s): L98.9 - DISORDER OF THE SKIN AND SUBCUTANEOUS TISSUE, UNSPECIFIED (6) Rash Current Visit: Yes Status: Acute Code(s): R21 - RASH AND OTHER NONSPECIFIC SKIN ERUPTION (7) BMI 31.0-31.9,adult Current Visit: Yes Status: Acute Assessment & Plan: 1) Toe ulcer, right Current Visit: Yes Status: Acute Assessment & Plan: - Podiatry consulted - Venous and arterial duplex Sunday- as unavailable on the weekends - 2nd toe right foot dorsal aspect - IV antibiotics - XR RLE: 1. Subtle lucent line is seen at the distal phalanx of second toe. Clinical correlation for focal tenderness and further workup is advised. 2. Soft tissue swelling seen along middle and distal phalanx of second toe. 3. Planter calcaneal spur. 4. Tendenopathy of distal Achilles tendon. 5. 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 6. MRI foot is advised if clinically indicated. 03/23 - antibiotics changed to Zyvox and Zosyn - plan is for amputation of right foot 2nd toe tomorrow with podiatry Code(s): L97.519 - NON-PRS CHRONIC ULCER OTH PRT RIGHT FOOT W UNSP SEVERITY (2) Leukocytosis Current Visit: Yes Status: Acute Assessment & Plan: - WBC 12.9 - 2:2 skin lesions BLLE 03/23 - WBC 11.4- improving Code(s): D72.829 - ELEVATED WHITE BLOOD CELL COUNT, UNSPECIFIED (3) Elevated d-dimer Current Visit: Yes Status: Acute Assessment & Plan: - D-Dimer 0.81 - Arterial and Venous duplex Sunday for further evaluation - no blood thinners at this time as pt may have procedure on 2nd toe RLE Code(s): R79.89 - OTHER SPECIFIED ABNORMAL FINDINGS OF BLOOD CHEMISTRY (4) Gout Current Visit: Yes Status: Acute Assessment & Plan: - uric acid 10.0 - IV steroids started Code(s): M10.9 - GOUT, UNSPECIFIED (5) Skin lesions Current Visit: Yes Status: Acute Assessment & Plan: - BLLE - Pics in chart - Podiatry consult - IV antibiotics, steroids Code(s): L98.9 - DISORDER OF THE SKIN AND SUBCUTANEOUS TISSUE, UNSPECIFIED (6) Rash Current Visit: Yes Status: Acute Assessment & Plan: - Unknown cause - BLLE Code(s): R21 - RASH AND OTHER NONSPECIFIC SKIN ERUPTION (7) BMI 31.0-31.9,adult Current Visit: Yes Status: Acute Assessment & Plan: - advised diet and exercise control Code(s): Z68.31 - BODY MASS INDEX [BMI] 31.0-31.9, ADULT Code(s): Z68.31 - BODY MASS INDEX [BMI] 31.0-31.9, ADULT (8) Constipation Current Visit: Yes Status: Acute Assessment & Plan: - Colace BID started - Pt has a hx of multiple bowel obstructions VTE: SCD Next of Kin: Tegan Alicea Code status: Full D/C plan: 2-3 days Code(s): K59.00 - CONSTIPATION, UNSPECIFIED
[2024-03-23] MEDS: NORCO 5/325 MG PO ONE (17:17)
--- NOTE | 2024-03-23 17:49 | XRAY ---
CLINICAL HISTORY: PICC line placement COMPARISON: 10/13/2019 x-ray of chest. TECHNIQUE: X-ray of the chest in AP portable. FINDINGS: Poor positioning due to patient rotation and poor inspiratory effect limits study assessment. A peripherally inserted PICC line is visualized entering from the right axilla. The tip appears to terminate in the superior vena cava, approx. 1.5 cm above the cassie. No kinks or loops are seen along its course. Median sternotomy and right upper mediastinal sutures are present, consistent with prior cardiac surgery. Lung pacheco are suboptimally expanded due to poor inspiration, no acute consolidation or effusions are seen. a small, well-defined nodule seen measuring 4 mm in the right lower zone. Mild blunting of the right costophrenic sinus, possibly a small pleural effusion or pleural thickening. Cardiomediastinal silhouette is enlarged for a portable study. No evidence of widening of mediastinum. IMPRESSION: 1. The PICC line appears appropriately positioned in the SVC. 2. Poststernotomy changes and cardiomegaly, likely from prior cardiac surgery. 3. Mild right costophrenic sinus blunting may represent a small effusion or pleural thickening. 4. Small right lower zone nodule, stationary since 10/13/2019 x-ray imaging. 5. Limited study due to poor inspiration and patient rotation. Electronically Signed by: Jacey Hinds MD. (03/23/2024 17:45:55 EDT)
[2024-03-23] MEDS: Docusate Sodium 100 MG PO SCH (21:23)
[2024-03-24 00:04] LABS: C-Reactive Protein, Cardiac 1.88 mg/L (0.00-3.00)
[2024-03-24 05:14] LABS: Hematocrit 44.8 % (40.1-51.0); Hemoglobin 14.5 g/dL (13.7-17.5); Mean Corpuscular Hemoglobin 32.4 pg (25.7-32.2); Mean Corpuscular Hgb Concent. 32.4 g/dL (32.3-36.5); Mean Platelet Volume 10.2 fL (9.4-12.4); Platelet Count 180 x10^3/uL (163-337); Red Blood Count 4.48 x10^6/uL (4.63-6.08); Red Cell Distribution Width 13.1 % (11.6-14.4); White Blood Count 7.8 x10^3/uL (4.23-9.07)
--- NOTE | 2024-03-24 05:16 | PCM.NOTE ---
Date and Time: 03/24/24 0511 Subjective Assessment: Mr. Alicea is an 83 year old male with a pmhx of DM with peripheral neuropathy, arrhythmia, COPD, arthritis, coronary artery disease (CABG, angioplasty and cardiac stents), obesity, and drinks 3 beers daily admitted 03/22/21 for osteomyelitis of the 2nd digit of the right foot after experiencing several days of diffuse joint pain, BLE edema, and right foot second toe swelling with purulent drainage. Patient with recent admission to [facility] where patient reports he was diagnosed with bilateral lower extremity rash with MRSA. He was discharged on steroids. Podiatry has been consulted with recs for IV abx Zosyn/Zyvox/Steroid. PICC placement. Plan for arterial and venous duplex. 03/24/24: Met with patient bedside s/p right 2nd digit amputation. Arterial/venous duplex pending. Endorses pain to right lower extremity. Plan to continue Zosyn/Zyvox per podiatry 6-8 weeks. Denies fever,cough, sob, cp, abdominal pain, SMITH, dizziness, N/V/D. - Review of Systems Constitutional: No Symptoms Eyes: No Symptoms Ears, Nose, & Throat: No Symptoms Respiratory: No Symptoms Cardiac: No Symptoms Abdominal/Gastrointestinal: No Symptoms Genitourinary Symptoms: No Symptoms Musculoskeletal: Joint Pain (RLE) Skin: Other (Amputation right foot second digit with surgical dressing) Neurological: No Symptoms Psychological: No Symptoms Endocrine: No Symptoms Hematologic/Lymphatic: No Symptoms Immunological/Allergic: No Symptoms Objective Exam General Appearance: no apparent distress Neurologic Exam: alert, oriented x 3, cooperative Skin Exam: normal color Wound Assessment: Skin/Wound Assessment Wound/Incision Assessment Start: 03/22/24 09:19 Text: Status: Active Freq: Q6H Protocol: Document 03/24/24 01:56 AK (Rec: 03/24/24 02:01 AK [id number]) Wound/Incision Assessment Abdomen Wound Assessment Shift Assessment Wound Type scabbed wounds and surgical scar Wound Stage Non Pressure Wound Drainage Amount Minimal Drainage Description Sanguineous Drainage Odor None/Absent Surrounding Tissue [place] Comment surgical scar and scabbed wounds, surrounding skin CDI. remains true. BLE Wound Assessment Shift Assessment Wound Type rash/ulcerations Wound Stage Non Pressure Wound Drainage Amount None General Appearance Open to air,Reddened Surrounding Tissue [place],Purple Comment multiple scattered ulcerations & scabs to BLE, areas of red/ purple discoloration. remains true. Right Toe Wound Assessment Shift Assessment Wound Type ulceration bottom of right 2nd toe Wound Stage Non Pressure Wound Drainage Amount None General Appearance Open to air,Reddened,Blackened Surrounding Tissue Bright [place] Comment ulceration to bottom of right 2nd toe. remains true. Eye Exam: PERRL Ears, Nose, Throat Exam: normal ENT inspection Neck Exam: normal inspection Respiratory Exam: normal breath sounds, lungs clear Cardiovascular Exam: regular rate/rhythm, normal heart sounds Gastrointestinal/Abdomen Exam: soft, normal bowel sounds Extremity Exam: other (Right foot 2nd digit amputation with surgical dressing) Back Exam: normal inspection Male Genitalia Exam: deferred Rectal Exam: deferred Objective Data Vital Signs: Vital Signs - 24 hr Temp Pulse Resp BP Pulse Ox 03/24/24 04:00 97.8 F 73 19 173/86 93 L 03/23/24 23:56 97.9 F 74 20 133/65 95 03/23/24 20:00 99.1 F 64 18 128/59 94 L 03/23/24 16:00 98.2 F 64 18 121/77 93 L 03/23/24 11:08 96.8 F 63 18 126/60 93 L 03/23/24 06:58 97.6 F 78 19 134/70 92 L Pain Assessment - Last Documented Pain Intensity 2 Pain Scale Used 0-10 Pain Scale Intake and Output: Intake & Output 03/21/24 03/22/24 03/23/24 03/24/24 11:59 11:59 11:59 11:59 Intake Total 2070 1140 Output Total 1050 940 Balance 1020 200 Weight 99.7 kg 99.7 kg Lab Results: Lab Results-Last 24 Hours 03/22/24 03/23/24 03/23/24 Range/Units 07:00 05:17 05:17 WBC 11.4 H (4.23-9.07) x10^3/uL RBC 4.47 L (4.63-6.08) x10^6/uL Hgb 14.6 (13.7-17.5) g/dL Hct 44.9 (40.1-51.0) % MCV 100.4 H (79.0-92.2) fL MCH 32.7 H (25.7-32.2) pg MCHC 32.5 (32.3-36.5) g/dL RDW 13.2 (11.6-14.4) % Plt Count 191 (163-337) x10^3/uL MPV 10.9 (9.4-12.4) fL Sodium 134 L (135-145) mmol/L Potassium 4.4 (3.5-5.1) mmol/L Chloride 102 (98-107) mmol/L Carbon Dioxide 26 (22-30) mmol/L Anion Gap 10.8 (5-15) MEQ/L BUN 28 H (9-20) mg/dL Creatinine 1.01 (0.66-1.25) mg/dL Estimated GFR 74.7 ML/MIN Glucose 290 H (74-106) mg/dL POC Glucometer (74 to 106) mg/dL Calcium 8.2 L (8.4-10.2) mg/dL Total Bilirubin 0.40 (0.2-1.3) mg/dL AST 56 (17-59) U/L ALT 89 H (0-50) U/L Alkaline Phosphatase 89 (38-126) U/L Cardiac CRP 1.88 (0.00-3.00) mg/L Serum Total Protein 5.8 L (6.3-8.2) g/dL Albumin 3.2 L (3.5-5.0) g/dL c-ANCA Antibody Pending Proteinase 3 (PR3) Ab Pending Atypical p-ANCA Pending p-ANCA Antibody Pending Anti-Myeloperoxidase Ab Pending 03/23/24 03/23/24 03/23/24 Range/Units 08:41 11:00 17:03 WBC (4.23-9.07) x10^3/uL RBC (4.63-6.08) x10^6/uL Hgb (13.7-17.5) g/dL Hct (40.1-51.0) % MCV (79.0-92.2) fL MCH (25.7-32.2) pg MCHC (32.3-36.5) g/dL RDW (11.6-14.4) % Plt Count (163-337) x10^3/uL MPV (9.4-12.4) fL Sodium (135-145) mmol/L Potassium (3.5-5.1) mmol/L Chloride (98-107) mmol/L Carbon Dioxide (22-30) mmol/L Anion Gap (5-15) MEQ/L BUN (9-20) mg/dL Creatinine (0.66-1.25) mg/dL Estimated GFR ML/MIN Glucose (74-106) mg/dL POC Glucometer 189 H 165 H 156 H (74 to 106) mg/dL Calcium (8.4-10.2) mg/dL Total Bilirubin (0.2-1.3) mg/dL AST (17-59) U/L ALT (0-50) U/L Alkaline Phosphatase (38-126) U/L Cardiac CRP (0.00-3.00) mg/L Serum Total Protein (6.3-8.2) g/dL Albumin (3.5-5.0) g/dL c-ANCA Antibody Proteinase 3 (PR3) Ab Atypical p-ANCA p-ANCA Antibody Anti-Myeloperoxidase Ab 03/23/24 Range/Units 20:53 WBC (4.23-9.07) x10^3/uL RBC (4.63-6.08) x10^6/uL Hgb (13.7-17.5) g/dL Hct (40.1-51.0) % MCV (79.0-92.2) fL MCH (25.7-32.2) pg MCHC (32.3-36.5) g/dL RDW (11.6-14.4) % Plt Count (163-337) x10^3/uL MPV (9.4-12.4) fL Sodium (135-145) mmol/L Potassium (3.5-5.1) mmol/L Chloride (98-107) mmol/L Carbon Dioxide (22-30) mmol/L Anion Gap (5-15) MEQ/L BUN (9-20) mg/dL Creatinine (0.66-1.25) mg/dL Estimated GFR ML/MIN Glucose (74-106) mg/dL POC Glucometer TNP (74 to 106) mg/dL Calcium (8.4-10.2) mg/dL Total Bilirubin (0.2-1.3) mg/dL AST (17-59) U/L ALT (0-50) U/L Alkaline Phosphatase (38-126) U/L Cardiac CRP (0.00-3.00) mg/L Serum Total Protein (6.3-8.2) g/dL Albumin (3.5-5.0) g/dL c-ANCA Antibody Proteinase 3 (PR3) Ab Atypical p-ANCA p-ANCA Antibody Anti-Myeloperoxidase Ab Radiology Exams: Radiology Procedures Category Date Time Status ARTERIAL UNILAT/LTD LOWER EXT [US] Routine Exams 03/24/24 08:00 Ordered CHEST 1 VIEW (PORTABLE) Stat Exams 03/23/24 16:34 Completed FOOT (2 VIEWS) Stat Exams 03/22/24 11:07 Completed VENOUS UNILAT/LIMITED EXTREMIT [US] Routine Exams 03/24/24 08:00 Ordered Assessment/Plan (1) Osteomyelitis due to type 2 diabetes mellitus Current Visit: Yes Status: Acute Assessment & Plan: - Venous and arterial duplex pending - XR RLE demonstrating osteolysis of cortex of distal phalanx 2nd digit of the right foot. -Podiatry note reviewed agree with plan for open amputation of right foot 2nd digit per podiatry with continuation of Zyvox/Zosyn for 6-8 weeks -Dressing changes per podiatry -PICC placed Code(s): E11.69 - TYPE 2 DIABETES MELLITUS WITH OTHER SPECIFIED COMPLICATION; M86.9 - OSTEOMYELITIS, UNSPECIFIED (2) Toe ulcer, right Current Visit: Yes Status: Acute Assessment & Plan: -see plan above Code(s): L97.519 - NON-PRS CHRONIC ULCER OTH PRT RIGHT FOOT W UNSP SEVERITY (3) BMI 31.0-31.9,adult Current Visit: Yes Status: Acute Assessment & Plan: - advised diet and exercise control Code(s): Z68.31 - BODY MASS INDEX [BMI] 31.0-31.9, ADULT (4) Constipation Current Visit: Yes Status: Acute Assessment & Plan: - Colace BID started - Pt has a hx of multiple bowel obstructions -monitor closely Code(s): K59.00 - CONSTIPATION, UNSPECIFIED (5) Gout Current Visit: Yes Status: Acute Assessment & Plan: - uric acid 10.0 - IV steroids started 03/22/24 Code(s): M10.9 - GOUT, UNSPECIFIED (6) Leukocytosis Current Visit: Yes Status: Acute Assessment & Plan: -secondary to osteomyelitis - plan as stated above, continue WBC trend 7/22/24: -resolved -blood cultures with NGTD Code(s): D72.829 - ELEVATED WHITE BLOOD CELL COUNT, UNSPECIFIED (7) Rash Current Visit: Yes Status: Acute Assessment & Plan: - Unknown etiology - continue IV abx/steroids Code(s): R21 - RASH AND OTHER NONSPECIFIC SKIN ERUPTION (8) Skin lesions Current Visit: Yes Status: Acute Assessment & Plan: - BLLE - Pics in chart - Podiatry consult - IV antibiotics, steroids Code(s): L98.9 - DISORDER OF THE SKIN AND SUBCUTANEOUS TISSUE, UNSPECIFIED
[2024-03-24 05:31] LABS: ALBUMIN 3.3 g/dL (3.5-5.0); ANION GAP 9.3 MEQ/L (5-15); BILIRUBIN,TOTAL 0.2 mg/dL (0.2-1.3); Calcium 8.9 mg/dL (8.4-10.2); Creatinine 1 1.01 mg/dL (0.66-1.25); EST GLOMERULAR FILTRATION RATE 74.7 ML/MIN; Potassium 4.8 mmol/L (3.5-5.1); Total Protein 5.9 g/dL (6.3-8.2)
[2024-03-24] MEDS ORDERED: Xylocaine 1% Vial 30 ML PF IJ ONE (06:36)
[2024-03-24] MEDS ORDERED: Marcaine Mpf 0.5% Vial 30 Ml ONE ×2 (06:36→09:09)
[2024-03-24] MEDS ORDERED: DIPRIVAN 200 MG/20 ML IV ONE ×2 (06:53→10:40)
[2024-03-24] MEDS ORDERED: DEXMEDETOMIDINE 80 MCG/20ML-NS IV ONE (06:54)
[2024-03-24] MEDS ORDERED: Lactated Ringers 1,000 ML IV ONE (07:36)
[2024-03-24] MEDS ORDERED: TRANDATE 20 MG/4 ML SYRINGE IV ONE (08:01)
[2024-03-24] MEDS ORDERED: XYLOCAINE 1% HCL 20 ML MDV ONE (09:09)
[2024-03-24] MEDS: NORCO 5/325 MG PO PRN (11:12)
--- NOTE | 2024-03-24 15:27 | XRAY ---
Indication: Cellulitis. Nonhealing wound. Status post right toe amputation with right arm PICC line. Two-dimensional sonogram and color Doppler imaging major arteries vessels right leg performed. Comparison: None Visualized common femoral, deep femoral, superficial femoral, popliteal, posterior tibial, and dorsal pedal arteries are widely patent. Arterial waveforms are multiphasic throughout right leg. Ankle brachial index not performed due to recent right toe amputation and right arm PICC line insertion. Impression: Right leg arterial sonogram negative for critical stenosis/occlusion.
--- NOTE | 2024-03-24 15:27 | XRAY ---
Indication: Cellulitis. Elevated d-dimer. Two-dimensional sonogram and color Doppler imaging major venous vessels right leg performed. Comparison: None No thrombus seen in the examined deep venous vessels right leg including greater saphenous vein. Veins demonstrate normal compressibility. Venous waveforms are normal with and without augmentation. Impression: Right leg negative for DVT.
--- NOTE | 2024-03-24 16:40 | PCM.NOTE ---
Date and Time: 03/24/24 1636 Subjective Assessment: POD #0 was waiting for venous and arterial studies to assess healing potential. Obtained this afternoon. Patient pain controlled with oral norco 5. Physical Exam - Narrative Narrative Physical Exam: Podiatry Physical Exam Objective Data Vital Signs: Vital Signs - 24 hr Temp Pulse Resp BP Pulse Ox 03/24/24 12:00 98.1 F 59 L 23 173/83 95 03/24/24 05:23 97.8 F 73 19 173/86 93 L 03/24/24 04:00 97.8 F 73 19 173/86 93 L 03/23/24 23:56 97.9 F 74 20 133/65 95 03/23/24 20:00 99.1 F 64 18 128/59 94 L Pain Assessment - Last Documented Pain Intensity 9 Pain Scale Used 0-10 Pain Scale Intake and Output: Intake & Output 03/22/24 03/23/24 03/24/24 03/25/24 11:59 11:59 11:59 11:59 Intake Total 2070 1140 120 Output Total 1050 940 Balance 1020 200 120 Weight 99.7 kg 99.7 kg Lab Results: Lab Results-Last 24 Hours 03/22/24 03/23/24 03/23/24 Range/Units 07:00 17:03 20:53 WBC (4.23-9.07) x10^3/uL RBC (4.63-6.08) x10^6/uL Hgb (13.7-17.5) g/dL Hct (40.1-51.0) % MCV (79.0-92.2) fL MCH (25.7-32.2) pg MCHC (32.3-36.5) g/dL RDW (11.6-14.4) % Plt Count (163-337) x10^3/uL MPV (9.4-12.4) fL Sodium (135-145) mmol/L Potassium (3.5-5.1) mmol/L Chloride (98-107) mmol/L Carbon Dioxide (22-30) mmol/L Anion Gap (5-15) MEQ/L BUN (9-20) mg/dL Creatinine (0.66-1.25) mg/dL Estimated GFR ML/MIN Glucose (74-106) mg/dL POC Glucometer 156 H TNP (74 to 106) mg/dL Calcium (8.4-10.2) mg/dL Total Bilirubin (0.2-1.3) mg/dL AST (17-59) U/L ALT (0-50) U/L Alkaline Phosphatase (38-126) U/L Cardiac CRP 1.88 (0.00-3.00) mg/L Serum Total Protein (6.3-8.2) g/dL Albumin (3.5-5.0) g/dL c-ANCA Antibody Pending Proteinase 3 (PR3) Ab Pending Atypical p-ANCA Pending p-ANCA Antibody Pending Anti-Myeloperoxidase Ab Pending 03/24/24 03/24/24 03/24/24 Range/Units 04:57 04:57 11:11 WBC 7.8 (4.23-9.07) x10^3/uL RBC 4.48 L (4.63-6.08) x10^6/uL Hgb 14.5 (13.7-17.5) g/dL Hct 44.8 (40.1-51.0) % MCV 100.0 H (79.0-92.2) fL MCH 32.4 H (25.7-32.2) pg MCHC 32.4 (32.3-36.5) g/dL RDW 13.1 (11.6-14.4) % Plt Count 180 (163-337) x10^3/uL MPV 10.2 (9.4-12.4) fL Sodium 136 (135-145) mmol/L Potassium 4.8 (3.5-5.1) mmol/L Chloride 105 (98-107) mmol/L Carbon Dioxide 26 (22-30) mmol/L Anion Gap 9.3 (5-15) MEQ/L BUN 31 H (9-20) mg/dL Creatinine 1.01 (0.66-1.25) mg/dL Estimated GFR 74.7 ML/MIN Glucose 193 H (74-106) mg/dL POC Glucometer 147 H (74 to 106) mg/dL Calcium 8.9 (8.4-10.2) mg/dL Total Bilirubin 0.20 (0.2-1.3) mg/dL AST 110 H (17-59) U/L ALT 181 H (0-50) U/L Alkaline Phosphatase 82 (38-126) U/L Cardiac CRP (0.00-3.00) mg/L Serum Total Protein 5.9 L (6.3-8.2) g/dL Albumin 3.3 L (3.5-5.0) g/dL c-ANCA Antibody Proteinase 3 (PR3) Ab Atypical p-ANCA p-ANCA Antibody Anti-Myeloperoxidase Ab 03/24/24 Range/Units 16:29 WBC (4.23-9.07) x10^3/uL RBC (4.63-6.08) x10^6/uL Hgb (13.7-17.5) g/dL Hct (40.1-51.0) % MCV (79.0-92.2) fL MCH (25.7-32.2) pg MCHC (32.3-36.5) g/dL RDW (11.6-14.4) % Plt Count (163-337) x10^3/uL MPV (9.4-12.4) fL Sodium (135-145) mmol/L Potassium (3.5-5.1) mmol/L Chloride (98-107) mmol/L Carbon Dioxide (22-30) mmol/L Anion Gap (5-15) MEQ/L BUN (9-20) mg/dL Creatinine (0.66-1.25) mg/dL Estimated GFR ML/MIN Glucose (74-106) mg/dL POC Glucometer 284 H (74 to 106) mg/dL Calcium (8.4-10.2) mg/dL Total Bilirubin (0.2-1.3) mg/dL AST (17-59) U/L ALT (0-50) U/L Alkaline Phosphatase (38-126) U/L Cardiac CRP (0.00-3.00) mg/L Serum Total Protein (6.3-8.2) g/dL Albumin (3.5-5.0) g/dL c-ANCA Antibody Proteinase 3 (PR3) Ab Atypical p-ANCA p-ANCA Antibody Anti-Myeloperoxidase Ab Radiology Exams: Radiology Procedures Category Date Time Status ARTERIAL UNILAT/LTD LOWER EXT [US] Routine Exams 03/24/24 08:00 Completed CHEST 1 VIEW (PORTABLE) Stat Exams 03/23/24 16:34 Completed VENOUS UNILAT/LIMITED EXTREMIT [US] Routine Exams 03/24/24 08:00 Completed Multi-Disciplinary Progress Notes: Multi-Disciplinary Progress Notes 03/24/24 14:09 Case Management Note by Barbie Angel S/W PATIENT ABOUT COST OF HOME INFUSIONS- PATIENT VOICED THAT HE WOULD PREFER TO DRIVE HIMSELF IN FOR OTPT INFUSIONS IF ABLE TO DO SO. FAMILY VOICED THEY WILL ONLY BE ABLE TO HELP WITH HOME INFUSIONS DAILY- NOT TWICE A DAY. WILL S/W JUAN ABOUT HOPEFULLY DOING A DAILY INFUSIONS AT [place]. Initialized on 03/24/24 14:09 - END OF NOTE 03/24/24 13:14 Case Management Note by Barbie Angel FAMILY NOTED THEY WOULD BE INTERESTED IN HOME INFUSIONS FOR IV ANTIBIOTICS. FACESHEET FAXED TO [facility] TO CHECK BENEFITS S/W YEVGENIY AT [facility]- PATIENT DOES NOT HAVE COVERAGE FOR SUPPLIES. IT W ILL BE $35/DAY FOR 1 DRUG OR $50/DAY FOR 2 DRUGS. HE DOES HAVE COVERAGE FOR THE MEDICATIONS HOWEVER. FAMILY NOTIFIED Initialized on 03/24/24 13:14 - END OF NOTE Assessment/Plan (1) Osteomyelitis due to type 2 diabetes mellitus Current Visit: Yes Status: Acute Assessment & Plan: POD#0 s/p open amputation 2nd toe right foot. Pain control Awaiting surgical pathology. Currently plan for d/c for broad spectrum coverage with pharmacy to dose daily for outpatient infusion PICC placement-obtained Code(s): E11.69 - TYPE 2 DIABETES MELLITUS WITH OTHER SPECIFIED COMPLICATION; M86.9 - OSTEOMYELITIS, UNSPECIFIED (2) Uncontrolled diabetes mellitus Current Visit: Yes Status: Acute Code(s): KAD1545 - (3) Peripheral sensory neuropathy due to type 2 diabetes mellitus Current Visit: Yes Status: Acute Code(s): E11.42 - TYPE 2 DIABETES MELLITUS WITH DIABETIC POLYNEUROPATHY (4) PVD (peripheral vascular disease) Current Visit: Yes Status: Acute Code(s): I73.9 - PERIPHERAL VASCULAR DISEASE, UNSPECIFIED (5) Venous insufficiency Current Visit: Yes Status: Acute Assessment & Plan: Ulcerations to legs likely secondary to venous insufficency given findings of dopplers. Will proceed with compression therapy bilaterally Unna boots applied to bilateral lower extremity. Will follow with you Code(s): I87.2 - VENOUS INSUFFICIENCY (CHRONIC) (PERIPHERAL) (6) Arterial insufficiency of lower extremity Current Visit: Yes Status: Acute Code(s): I73.9 - PERIPHERAL VASCULAR DISEASE, UNSPECIFIED (7) BMI 31.0-31.9,adult Current Visit: Yes Status: Acute Code(s): Z68.31 - BODY MASS INDEX [BMI] 31.0-31.9, ADULT (8) Cellulitis Current Visit: Yes Status: Acute Code(s): L03.90 - CELLULITIS, UNSPECIFIED (9) Leukocytosis Current Visit: Yes Status: Acute Code(s): D72.829 - ELEVATED WHITE BLOOD CELL COUNT, UNSPECIFIED (10) Skin lesions Current Visit: Yes Status: Acute Code(s): L98.9 - DISORDER OF THE SKIN AND SUBCUTANEOUS TISSUE, UNSPECIFIED (11) Toe ulcer, right Current Visit: Yes Status: Acute Code(s): L97.519 - NON-PRS CHRONIC ULCER OTH PRT RIGHT FOOT W UNSP SEVERITY
[2024-03-24] MEDS: HUMALOG SQ PRN (23:25)
--- NOTE | 2024-03-25 05:14 | PCM.NOTE ---
Date and Time: 03/25/24 0513 Subjective Assessment: Mr. Alicea is an 83 year old male with a pmhx of DM with peripheral neuropathy, arrhythmia, COPD, arthritis, coronary artery disease (CABG, angioplasty and cardiac stents), obesity, and drinks 3 beers daily admitted 03/22/21 for osteomyelitis of the 2nd digit of the right foot after experiencing several days of diffuse joint pain, BLE edema, and right foot second toe swelling with purulent drainage. Patient with recent admission to [facility] where patient reports he was diagnosed with bilateral lower extremity rash with MRSA. He was discharged on steroids. Podiatry has been consulted with recs for IV abx Zosyn/Zyvox/Steroid. PICC placement. Plan for arterial and venous duplex. 03/24/24: Met with patient bedside s/p right 2nd digit amputation. Arterial/venous duplex pending. Endorses pain to right lower extremity. Plan to continue Zosyn/Zyvox per podiatry 6-8 weeks. Denies fever,cough, sob, cp, abdominal pain, SMITH, dizziness, N/V/D. Objective Exam Wound Assessment: Skin/Wound Assessment Wound/Incision Assessment Start: 03/22/24 09:19 Text: Status: Active Freq: Q6H Protocol: Document 03/24/24 23:00 AF (Rec: 03/24/24 23:20 AF [id number]) Wound/Incision Assessment Abdomen Wound Assessment Shift Assessment Wound Type scabbed wounds and surgical scar Wound Stage Non Pressure Wound Drainage Amount None Drainage Odor None/Absent General Appearance Clean/Dry Surrounding Tissue [place] Comment surgical scar and scabbed wounds, surrounding skin CDI. remains true. BLE Wound Assessment Shift Assessment Wound Type rash/ulcerations Wound Stage Non Pressure Wound Dressing Status Dry & Intact Drainage Amount None General Appearance Clean/Dry,Reddened Comment multiple scattered ulcerations & scabs to BLE, areas of red/ purple discoloration. Wrapped per VIANEY [place]. Dressing CDI Right Toe Wound Assessment Shift Assessment Wound Type Amputation Wound Stage Non Pressure Wound Dressing Status Dry & Intact Drainage Amount None Comment Amputation to right 2nd digit. Wrapped per Dr. Lazaro post- op. Some bleeding after pt ambulated to the bathroom, re- wrapped per VIANEY [place], dressing CDI. Wound Photo Photo Taken Yes Date: 03/22/24 Time: 01:30 Objective Data Vital Signs: Vital Signs - 24 hr Temp Pulse Resp BP Pulse Ox 03/25/24 04:00 96.4 F 63 16 173/72 94 L 03/24/24 23:46 96.3 F 71 16 150/66 94 L 03/24/24 19:42 96.4 F 57 L 19 166/70 95 03/24/24 16:00 97.7 F 70 20 173/72 94 L 03/24/24 12:00 98.1 F 59 L 23 173/83 95 03/24/24 05:23 97.8 F 73 19 173/86 93 L Pain Assessment - Last Documented Pain Intensity 7 Pain Scale Used 0-10 Pain Scale Intake and Output: Intake & Output 03/22/24 03/23/24 03/24/24 03/25/24 11:59 11:59 11:59 11:59 Intake Total 2070 1140 480 Output Total 1050 940 900 Balance 1020 200 -420 Weight 99.7 kg 99.7 kg Lab Results: Lab Results-Last 24 Hours 03/24/24 03/24/24 03/24/24 Range/Units 04:57 04:57 11:11 WBC 7.8 (4.23-9.07) x10^3/uL RBC 4.48 L (4.63-6.08) x10^6/uL Hgb 14.5 (13.7-17.5) g/dL Hct 44.8 (40.1-51.0) % MCV 100.0 H (79.0-92.2) fL MCH 32.4 H (25.7-32.2) pg MCHC 32.4 (32.3-36.5) g/dL RDW 13.1 (11.6-14.4) % Plt Count 180 (163-337) x10^3/uL MPV 10.2 (9.4-12.4) fL Sodium 136 (135-145) mmol/L Potassium 4.8 (3.5-5.1) mmol/L Chloride 105 (98-107) mmol/L Carbon Dioxide 26 (22-30) mmol/L Anion Gap 9.3 (5-15) MEQ/L BUN 31 H (9-20) mg/dL Creatinine 1.01 (0.66-1.25) mg/dL Estimated GFR 74.7 ML/MIN Glucose 193 H (74-106) mg/dL POC Glucometer 147 H (74 to 106) mg/dL Calcium 8.9 (8.4-10.2) mg/dL Total Bilirubin 0.20 (0.2-1.3) mg/dL AST 110 H (17-59) U/L ALT 181 H (0-50) U/L Alkaline Phosphatase 82 (38-126) U/L Serum Total Protein 5.9 L (6.3-8.2) g/dL Albumin 3.3 L (3.5-5.0) g/dL 03/24/24 03/24/24 Range/Units 16:29 21:28 WBC (4.23-9.07) x10^3/uL RBC (4.63-6.08) x10^6/uL Hgb (13.7-17.5) g/dL Hct (40.1-51.0) % MCV (79.0-92.2) fL MCH (25.7-32.2) pg MCHC (32.3-36.5) g/dL RDW (11.6-14.4) % Plt Count (163-337) x10^3/uL MPV (9.4-12.4) fL Sodium (135-145) mmol/L Potassium (3.5-5.1) mmol/L Chloride (98-107) mmol/L Carbon Dioxide (22-30) mmol/L Anion Gap (5-15) MEQ/L BUN (9-20) mg/dL Creatinine (0.66-1.25) mg/dL Estimated GFR ML/MIN Glucose (74-106) mg/dL POC Glucometer 284 H 253 H (74 to 106) mg/dL Calcium (8.4-10.2) mg/dL Total Bilirubin (0.2-1.3) mg/dL AST (17-59) U/L ALT (0-50) U/L Alkaline Phosphatase (38-126) U/L Serum Total Protein (6.3-8.2) g/dL Albumin (3.5-5.0) g/dL Radiology Exams: Radiology Procedures Category Date Time Status ARTERIAL UNILAT/LTD LOWER EXT [US] Routine Exams 03/24/24 08:00 Completed CHEST 1 VIEW (PORTABLE) Stat Exams 03/23/24 16:34 Completed VENOUS UNILAT/LIMITED EXTREMIT [US] Routine Exams 03/24/24 08:00 Completed Multi-Disciplinary Progress Notes: Multi-Disciplinary Progress Notes 03/24/24 14:09 Case Management Note by Barbie Angel S/W PATIENT ABOUT COST OF HOME INFUSIONS- PATIENT VOICED THAT HE WOULD PREFER TO DRIVE HIMSELF IN FOR OTPT INFUSIONS IF ABLE TO DO SO. FAMILY VOICED THEY WILL ONLY BE ABLE TO HELP WITH HOME INFUSIONS DAILY- NOT TWICE A DAY. WILL S/W JUAN ABOUT HOPEFULLY DOING A DAILY INFUSIONS AT [place]. Initialized on 03/24/24 14:09 - END OF NOTE 03/24/24 13:14 Case Management Note by Barbie Angel FAMILY NOTED THEY WOULD BE INTERESTED IN HOME INFUSIONS FOR IV ANTIBIOTICS. FACESHEET FAXED TO [facility] TO CHECK BENEFITS S/W YEVGENIY AT [facility]- PATIENT DOES NOT HAVE COVERAGE FOR SUPPLIES. IT WILL BE $35/DAY FOR 1 DRUG OR $50/DAY FOR 2 DRUGS. HE DOES HAVE COVERAGE FOR THE MEDICATIONS HOWEVER. FAMILY NOTIFIED Initialized on 03/24/24 13:14 - END OF NOTE Assessment/Plan (1) Osteomyelitis due to type 2 diabetes mellitus Current Visit: Yes Status: Acute Assessment & Plan: - Venous and arterial duplex pending - XR RLE demonstrating osteolysis of cortex of distal phalanx 2nd digit of the right foot. -Podiatry note reviewed agree with plan for open amputation of right foot 2nd digit per podiatry with continuation of Zyvox/Zosyn for 6-8 weeks -Dressing changes per podiatry -PICC placed Code(s): E11.69 - TYPE 2 DIABETES MELLITUS WITH OTHER SPECIFIED COMPLICATION; M86.9 - OSTEOMYELITIS, UNSPECIFIED (2) Toe ulcer, right Current Visit: Yes Status: Acute Assessment & Plan: -see plan above Code(s): L97.519 - NON-PRS CHRONIC ULCER OTH PRT RIGHT FOOT W UNSP SEVERITY (3) BMI 31.0-31.9,adult Current Visit: Yes Status: Acute Assessment & Plan: - advised diet and exercise control Code(s): Z68.31 - BODY MASS INDEX [BMI] 31.0-31.9, ADULT (4) Constipation Current Visit: Yes Status: Acute Assessment & Plan: - Colace BID started - Pt has a hx of multiple bowel obstructions -monitor closely Code(s): K59.00 - CONSTIPATION, UNSPECIFIED (5) Gout Current Visit: Yes Status: Acute Assessment & Plan: - uric acid 10.0 - IV steroids started 03/22/24 Code(s): M10.9 - GOUT, UNSPECIFIED (6) Leukocytosis Current Visit: Yes Status: Acute Assessment & Plan: -secondary to osteomyelitis - plan as stated above, continue WBC trend 03/24/24: -resolved -blood cultures with NGTD Code(s): D72.829 - ELEVATED WHITE BLOOD CELL COUNT, UNSPECIFIED (7) Rash Current Visit: Yes Status: Acute Assessment & Plan: - Unknown etiology - continue IV abx/steroids Code(s): R21 - RASH AND OTHER NONSPECIFIC SKIN ERUPTION (8) Skin lesions Current Visit: Yes Status: Acute Assessment & Plan: - BLLE - Pics in chart - Podiatry consult - IV antibiotics, steroids Code(s): L98.9 - DISORDER OF THE SKIN AND SUBCUTANEOUS TISSUE, UNSPECIFIED Additional CC's: Dr. DEN PIMENTEL Code(s): E11.69 - TYPE 2 DIABETES MELLITUS WITH OTHER SPECIFIED COMPLICATION; M86.9 - OSTEOMYELITIS, UNSPECIFIED (2) Toe ulcer, right Current Visit: Yes Status: Acute Code(s): L97.519 - NON-PRS CHRONIC ULCER OTH PRT RIGHT FOOT W UNSP SEVERITY (3) BMI 31.0-31.9,adult Current Visit: Yes Status: Acute Code(s): Z68.31 - BODY MASS INDEX [BMI] 31.0-31.9, ADULT (4) Constipation Current Visit: Yes Status: Acute Code(s): K59.00 - CONSTIPATION, UNSPECIFIED (5) Gout Current Visit: Yes Status: Acute Code(s): M10.9 - GOUT, UNSPECIFIED (6) Leukocytosis Current Visit: Yes Status: Acute Code(s): D72.829 - ELEVATED WHITE BLOOD CELL COUNT, UNSPECIFIED (7) Rash Current Visit: Yes Status: Acute Code(s): R21 - RASH AND OTHER NONSPECIFIC SKIN ERUPTION (8) Skin lesions Current Visit: Yes Status: Acute Code(s): L98.9 - DISORDER OF THE SKIN AND SUBCUTANEOUS TISSUE, UNSPECIFIED
[2024-03-25 06:57] LABS: Absolute Neutrophil Ct (ANC) 8.15 x10^3/uL (1.78-5.38); BASOPHIL % 0.2 % (0.2-1.2); Basophil (Absolute #) 0.02 x10^3/uL (0.01-0.08); Eosinophil (Absolute #) 0 x10^3/uL (0.04-0.54); Hematocrit 44.6 % (40.1-51.0); Hemoglobin 14.7 g/dL (13.7-17.5); IMMATURE GRAN # 0.07 x10^3u/L (0.001-0.031); IMMATURE GRAN % 0.8 % (0.001-0.429); Lymphocyte (Absolute #) 0.75 x10^3/uL (1.32-3.57); Lymphocytes % 8.1 % (21.8-53.1); Mean Cell Volume 98.9 fL (79.0-92.2); Mean Corpuscular Hemoglobin 32.6 pg (25.7-32.2); Mean Platelet Volume 10.7 fL (9.4-12.4); Monocyte (Absolute #) 0.31 x10^3/uL (0.30-0.82); Monocytes % 3.3 % (5.3-12.2); Neutrophil % 87.6 % (34.0-67.9); Platelet Count 178 x10^3/uL (163-337); Red Blood Count 4.51 x10^6/uL (4.63-6.08); Red Cell Distribution Width 12.9 % (11.6-14.4); White Blood Count 9.3 x10^3/uL (4.23-9.07)
[2024-03-25 07:24] LABS: ALBUMIN 3.3 g/dL (3.5-5.0); ANION GAP 10.8 MEQ/L (5-15); BILIRUBIN,TOTAL 0.3 mg/dL (0.2-1.3); Calcium 8.7 mg/dL (8.4-10.2); Creatinine 1 0.92 mg/dL (0.66-1.25); EST GLOMERULAR FILTRATION RATE 83.6 ML/MIN; Potassium 4.3 mmol/L (3.5-5.1); Total Protein 5.9 g/dL (6.3-8.2)
[2024-03-25] MEDS: HUMALOG SQ PRN (09:12)
[2024-03-25 11:47] VITALS: BP 165/74; PULSE 60; RESP 18; TEMP 97.5; O2SAT 97
--- NOTE | 2024-03-25 11:48 | OP ---
SURGERY DATE/TIME: 03/24/2024 0067 - 4689 PREOPERATIVE DIAGNOSES: 1) Diabetes mellitus. 2) Diabetic peripheral neuropathy. 3) Osteomyelitis. 4) Diabetic foot ulcer. 5) Right foot pain. POSTOPERATIVE DIAGNOSES: 1) Diabetes mellitus. 2) Diabetic peripheral neuropathy. 3) Osteomyelitis. 4) Diabetic foot ulcer. 5) Right foot pain. PROCEDURE: Amputation, second digit right foot, open. SURGEON: Tejas Ramos DPM BAG LOADER MACHINE OPERATOR: None. ANESTHESIA: Monitored anesthesia care. HEMOSTASIS: A pressure dressing. ESTIMATED BLOOD LOSS: Approximately 10 mL. MATERIALS: 3-0 nylon, 1/4-inch Iodoform packing. INJECTABLES: 20 mL of 1:1 mixture of 1% lidocaine plain and 0.5% bupivacaine plain injected in a metatarsal block-type fashion to the right foot. INDICATIONS: The patient is a very pleasant 83-year-old male who presented to the hospital for admission for multiple ulcerations to the bilateral lower extremities but more importantly and more painfully is the second toe on the right foot. He has had a wound here for some time and was seen by multiple providers for this issue. No x-rays were taken. However, when x-rays were taken from our standpoint, it did show cortical defect correlating with the wound. This, with the clinical presentation of a positive [id number] made it very clear we were dealing with an osteomyelitis that set off a cellulitic reaction and venous insufficiency ulcers that were elucidated. As a result, the patient is in the hospital with an elevated white blood cell count and he has been receiving IV antibiotics for the last 2 days with his white blood cell count coming down fairly significantly. At this time, options were discussed with the patient and decision was made that amputation was likely the best route in order to better his chances of proceeding without any further infection and need for surgical intervention. This is an end stage procedure where we are planning the amputation at this time due to soft tissue infection extending to the metatarsophalangeal joint base. As a result, we will leave the wound open until the soft tissue infection has resolved and plan for a delayed primary closure at a later date. At this time, the patient understands all risks, complications and benefits of intervention including but not limited to infection, hematoma, seroma, possibility of delayed wound healing, non-wound healing and possible need for further surgical intervention at a later date. No guarantees were provided as to the outcome of surgical intervention at this time. Plenty of time was allowed for the patient to ask questions which were answered to his apparent satisfaction. So, at this time, we decided to proceed. DESCRIPTION OF PROCEDURE AND FINDINGS: The patient was brought in the operating room, placed on the operating room table in the supine position. At this time, monitored anesthesia care was administered until the patient was adequately sedated. From that standpoint, the right lower extremity was prepped and draped in the typical sterile fashion and lowered onto the surgical field. At this time, an injection of 20 mL of a 1:1 mixture of 1% lidocaine plain and 0.5% bupivacaine plain was injected in the metatarsal block-type fashion to the second metatarsal. Following adequate amount of time, a fish-mouth incision was made with dorsal and plantar racquet saving enough skin on the proximal phalangeal side. This was carried down to the level of bone utilizing a 15 blade. This was disarticulated at the metatarsophalangeal joint. Following this, Bactisure was then utilized to flush the surgical site and then cleansed with 1 L of sterile saline. Following this, a 3-0 nylon was then utilized to coapt the dorsal and plantar aspects of the surgical wound. Quarter-inch Iodoform packing was packed into the deficit lightly. Following this, dressing consisting of Betadine, Adaptic, 4 x 4, Kerlix, ABD, was applied to patient's right lower extremity. The patient was then returned to the postoperative anesthesia care unit with vital signs stable and vascular status intact. The patient handled the anesthesia as well as the procedure without significant complication. Postoperative orders as indicated in the patient's discharge chart.
--- NOTE | 2024-03-25 12:08 | PCM.DS ---
Discharge Summary Date of Admission: 03/22/24 09:16 Date of Discharge: 03/25/24 Admitting Physician: HUMBERTO CARDENAS MD Consults: Consults on Case 03/22/24 11:02 Consult Podiatry ROUTINE Primary Care Provider: DEN PIMENTEL Allergies Allergies cefdinir Allergy (Severe, Verified 03/22/24 06:48) Rash cilastatin sodium [From Primaxin IV] Allergy (Severe, Verified 03/22/24 06:07) Hives vancomycin Allergy (Severe, Verified 03/22/24 06:07) Swelling of Face codeine Allergy (Mild, Verified 03/22/24 06:07) imipenem [From Primaxin IV] Allergy (Mild, Verified 03/22/24 06:07) meperidine HCl [From Demerol] Allergy (Mild, Verified 03/22/24 06:07) Hospital Summary - Hospital Course Hospital Course: Mr. Alicea is an 83 year old male with a pmhx of DM with peripheral neuropathy, arrhythmia, COPD, arthritis, coronary artery disease (CABG, angioplasty and cardiac stents), obesity, and drinks 3 beers daily admitted 03/22/21 for osteomyelitis of the 2nd digit of the right foot after experiencing several days of diffuse joint pain, BLE edema, and right foot second toe swelling with purulent drainage. Patient with recent admission to [facility] where patient reports he was diagnosed with bilateral lower extremity rash with MRSA. Records reviewed from that stay - blood cultures negative. Mentions punch biopsy but no results. He was discharged on steroids. Podiatry consulted -open amputation of right foot 2nd digit- IP treatment with steroids/zosyn/zyvox. Plan for continued OP IV abx Ertapenem/cubicin daily starting 03/26/24, dressing changes per podiatry in office - they will see him 03/26/24. Patient stable for discharge. Will send on steroid taper. Discharge Note New Diagnosis: Osteomyelitis right foot 2nd digit New Medications:as stated above Follow Up: Podiatry/ pcp Results pending: Pathology - podiatry following Latest Assessment & Plan 1) Osteomyelitis due to type 2 diabetes mellitus Current Visit: Yes Status: Acute Assessment & Plan: - Venous and arterial duplex pending - XR RLE demonstrating osteolysis of cortex of distal phalanx 2nd digit of the right foot. -Podiatry note reviewed agree with plan for open amputation of right foot 2nd digit per podiatry with continuation of Zyvox/Zosyn -Dressing changes per podiatry -PICC placed 03/26/24: -Ertapenem/Cubicin/dressing changes per podiatry Code(s): E11.69 - TYPE 2 DIABETES MELLITUS WITH OTHER SPECIFIED COMPLICATION; M86.9 - OSTEOMYELITIS, UNSPECIFIED (2) Toe ulcer, right Current Visit: Yes Status: Acute Assessment & Plan: -see plan above Code(s): L97.519 - NON-PRS CHRONIC ULCER OTH PRT RIGHT FOOT W UNSP SEVERITY (3) BMI 31.0-31.9,adult Current Visit: Yes Status: Acute Assessment & Plan: - advised diet and exercise control Code(s): Z68.31 - BODY MASS INDEX [BMI] 31.0-31.9, ADULT (4) Constipation Current Visit: Yes Status: Acute Assessment & Plan: - Colace BID started - Pt has a hx of multiple bowel obstructions -monitor closely Code(s): K59.00 - CONSTIPATION, UNSPECIFIED (5) Gout Current Visit: Yes Status: Acute Assessment & Plan: - uric acid 10.0 - IV steroids started 03/22/24 Code(s): M10.9 - GOUT, UNSPECIFIED (6) Leukocytosis Current Visit: Yes Status: Acute Assessment & Plan: -secondary to osteomyelitis - plan as stated above, continue WBC trend 03/24/24: -resolved -blood cultures with NGTD Code(s): D72.829 - ELEVATED WHITE BLOOD CELL COUNT, UNSPECIFIED (7) Rash Current Visit: Yes Status: Acute Assessment & Plan: - Unknown etiology - continue IV abx/steroids 03/24/24: -dc with steroid taper Code(s): R21 - RASH AND OTHER NONSPECIFIC SKIN ERUPTION (8) Skin lesions Current Visit: Yes Status: Acute Assessment & Plan: - BLLE - Pics in chart - Podiatry consult - IV antibiotics, steroids Code(s): L98.9 - DISORDER OF THE SKIN AND SUBCUTANEOUS TISSUE, UNSPECIFIED Additional CC's: Dr. DEN PIMENTEL Code(s): E11.69 - TYPE 2 DIABETES MELLITUS WITH OTHER SPECIFIED COMPLICATION; M86.9 - OSTEOMYELITIS, UNSPECIFIED I spent 35 minutes [id number] with the patient on the day of discharge performing discharge exam, discussing hospital stay and discharge instructions with patient and caregivers, preparation of discharge records, prescriptions & referral forms and addressing any questions/concerns the patient had as documented above. - Vitals & Intake/Output Vital Signs: Vital Signs Temperature 96.5 F 03/25/24 07:45 Pulse Rate 65 03/25/24 07:45 Respiratory Rate 14 03/25/24 07:45 Blood Pressure 142/80 03/25/24 07:45 O2 Sat by Pulse Oximetry 96 03/25/24 07:45 Intake & Output: Intake & Output 03/22/24 03/23/24 03/24/24 03/25/24 11:59 11:59 11:59 11:59 Intake Total 2070 1140 1160 Output Total 0169 523 3222 Balance 1020 200 -390 Weight 99.7 kg 99.7 kg - Lab Result Diagrams: 03/25/24 06:45 03/25/24 06:45 Lab Results-Last 24 Hrs: Lab Results-Last 24 Hours 03/24/24 03/24/24 03/25/24 Range/Units 16:29 21:28 06:44 WBC (4.23-9.07) x10^3/uL RBC (4.63-6.08) x10^6/uL Hgb (13.7-17.5) g/dL Hct (40.1-51.0) % MCV (79.0-92.2) fL MCH (25.7-32.2) pg MCHC (32.3-36.5) g/dL RDW (11.6-14.4) % Plt Count (163-337) x10^3/uL MPV (9.4-12.4) fL Gran % (34.0-67.9) % Immature Gran % (Auto) (0.001-0.429) % Nucleat RBC Rel Count (0.00-0.2) % Eos # (Auto) (0.04-0.54) x10^3/uL Immature Gran # (Auto) (0.001-0.031) x10^3u/L Absolute Lymphs (auto) (1.32-3.57) x10^3/uL Absolute Monos (auto) (0.30-0.82) x10^3/uL Absolute Nucleated RBC (0.00-0.012) x10^3u/L Lymphocytes % (21.8-53.1) % Monocytes % (5.3-12.2) % Eosinophils % (0.8-7.0) % Basophils % (0.2-1.2) % Absolute Granulocytes (1.78-5.38) x10^3/uL Basophils # (0.01-0.08) x10^3/uL Sodium (135-145) mmol/L Potassium (3.5-5.1) mmol/L Chloride (98-107) mmol/L Carbon Dioxide (22-30) mmol/L Anion Gap (5-15) MEQ/L BUN (9-20) mg/dL Creatinine (0.66-1.25) mg/dL Estimated GFR ML/MIN Glucose (74-106) mg/dL POC Glucometer 284 H 253 H 212 H (74 to 106) mg/dL Calcium (8.4-10.2) mg/dL Total Bilirubin (0.2-1.3) mg/dL AST (17-59) U/L ALT (0-50) U/L Alkaline Phosphatase (38-126) U/L Serum Total Protein (6.3-8.2) g/dL Albumin (3.5-5.0) g/dL 03/25/24 03/25/24 03/25/24 Range/Units 06:45 06:45 11:28 WBC 9.3 H (4.23-9.07) x10^3/uL RBC 4.51 L (4.63-6.08) x10^6/uL Hgb 14.7 (13.7-17.5) g/dL Hct 44.6 (40.1-51.0) % MCV 98.9 H (79.0-92.2) fL MCH 32.6 H (25.7-32.2) pg MCHC 33.0 (32.3-36.5) g/dL RDW 12.9 (11.6-14.4) % Plt Count 178 (163-337) x10^3/uL MPV 10.7 (9.4-12.4) fL Gran % 87.6 H (34.0-67.9) % Immature Gran % (Auto) 0.8 H (0.001-0.429) % Nucleat RBC Rel Count 0.0 (0.00-0.2) % Eos # (Auto) 0 L (0.04-0.54) x10^3/uL Immature Gran # (Auto) 0.07 H (0.001-0.031) x10^3u/L Absolute Lymphs (auto) 0.75 L (1.32-3.57) x10^3/uL Absolute Monos (auto) 0.31 (0.30-0.82) x10^3/uL Absolute Nucleated RBC 0.00 (0.00-0.012) x10^3u/L Lymphocytes % 8.1 L (21.8-53.1) % Monocytes % 3.3 L (5.3-12.2) % Eosinophils % 0.0 L (0.8-7.0) % Basophils % 0.2 (0.2-1.2) % Absolute Granulocytes 8.15 H (1.78-5.38) x10^3/uL Basophils # 0.02 (0.01-0.08) x10^3/uL Sodium 135 (135-145) mmol/L Potassium 4.3 (3.5-5.1) mmol/L Chloride 102 (98-107) mmol/L Carbon Dioxide 26 (22-30) mmol/L Anion Gap 10.8 (5-15) MEQ/L BUN 23 H (9-20) mg/dL Creatinine 0.92 (0.66-1.25) mg/dL Estimated GFR 83.6 ML/MIN Glucose 204 H (74-106) mg/dL POC Glucometer 191 H (74 to 106) mg/dL Calcium 8.7 (8.4-10.2) mg/dL Total Bilirubin 0.30 (0.2-1.3) mg/dL AST 63 H (17-59) U/L ALT 181 H (0-50) U/L Alkaline Phosphatase 79 (38-126) U/L Serum Total Protein 5.9 L (6.3-8.2) g/dL Albumin 3.3 L (3.5-5.0) g/dL Micro Results-Entire Visit: Microbiology 03/22/24 06:32 Blood Culture - Preliminary Blood 03/22/24 06:25 Blood Culture - Preliminary Blood Accuchecks Date 03/25/24 Date 03/24/24 Date 03/24/24 Time 07:45 - Radiology Exams Ordered Rad Exams-Entire Visit: Radiology Procedures Category Date Time Status ARTERIAL UNILAT/LTD LOWER EXT [US] Routine Exams 03/24/24 08:00 Completed CHEST 1 VIEW (PORTABLE) Stat Exams 03/23/24 16:34 Completed VENOUS UNILAT/LIMITED EXTREMIT [US] Routine Exams 03/24/24 08:00 Completed - Procedures and Test Procedures and Tests throughout Hospitalization: Therapy Orders & Screens 03/22/24 10:22 OT Screen per Nursing Assess ONCE Comment: Protocol Order Physician Instructions: Greater than 3 points order OT Admission Screening Reason For Exam: Triggered on Admission Diagnosis: vasculitis Open Wound/Cellutlitis/Pressure Ulcers: Yes Acute Fx/ORIF/Change in wt bearing status: No Severe MUSCULOSKELETAL pain: No ADL Dysfunction: No Acute CVA w/Hemiparesis/Hemiplegia: No Decreased Functional Mobility/Strength: No Sprain/Strain: No Acute Post-op Mobility Dysfunction: No Total Points: 5 PT Screen per Nursing Assess ONCE Comment: Protocol Order Physician Instructions: Greater than 3 points order PT Admission Screenin Reason For Exam: Triggered on Admission Diagnosis: vasculitis Open Wound/Cellutlitis/Pressure Ulcers: Yes Acute Fx/ORIF/Change in wt bearing status: No Severe MUSCULOSKELETAL pain: No ADL Dysfunction: No Acute CVA w/Hemiparesis/Hemiplegia: No Decreased Functional Mobility/Strength: No Sprain/Strain: No Acute Post-op Mobility Dysfunction: No Total Points: 5 Discharge Exam General Appearance: no apparent distress Neurologic Exam: alert, oriented x 3, cooperative Eye Exam: PERRL Ears, Nose, Throat Exam: normal ENT inspection Neck Exam: normal inspection Respiratory Exam: normal breath sounds, lungs clear Cardiovascular Exam: regular rate/rhythm, normal heart sounds Gastrointestinal/Abdomen Exam: soft, normal bowel sounds Male Genitalia Exam: deferred Rectal Exam: deferred Back Exam: normal inspection Extremity Exam: other (RLE with surgical dressing) Skin Exam: normal color Wound Assessment: Skin/Wound Assessment Wound/Incision Assessment Start: 03/22/24 09:19 Text: Status: Active Freq: Q6H Protocol: Document 03/25/24 09:20 RB (Rec: 03/25/24 09:27 RB [id number]) Wound/Incision Assessment Abdomen Wound Assessment Shift Assessment Wound Type scabbed wounds and surgical scar Wound Stage Non Pressure Wound Drainage Amount None Drainage Odor None/Absent General Appearance Clean/Dry Surrounding Tissue [place] Comment surgical scar and scabbed wounds, opent o air BLE Wound Assessment Shift Assessment Wound Type rash/ulcerations Wound Stage Non Pressure Wound Dressing Status Dry & Intact Drainage Amount None General Appearance Clean/Dry,Reddened Comment maria boots in place per podiatry Right Toe Wound Assessment Shift Assessment Wound Type Amputation Wound Stage Non Pressure Wound Dressing Status Dry & Intact Drainage Amount None Comment amputation, drsg CDI Wound Photo Photo Taken Yes Date: 03/22/24 Time: 01:30 Final Diagnosis/Problem List - Final Discharge Diagnosis/Problem (1) Osteomyelitis due to type 2 diabetes mellitus Current Visit: Yes Status: Acute Code(s): E11.69 - TYPE 2 DIABETES MELLITUS WITH OTHER SPECIFIED COMPLICATION; M86.9 - OSTEOMYELITIS, UNSPECIFIED (2) Toe ulcer, right Current Visit: Yes Status: Acute Code(s): L97.519 - NON-PRS CHRONIC ULCER OT H PRT RIGHT FOOT W UNSP SEVERITY (3) BMI 31.0-31.9,adult Current Visit: Yes Status: Acute Code(s): Z68.31 - BODY MASS INDEX [BMI] 31.0-31.9, ADULT (4) Constipation Current Visit: Yes Status: Acute Code(s): K59.00 - CONSTIPATION, UNSPECIFIED (5) Gout Current Visit: Yes Status: Acute Code(s): M10.9 - GOUT, UNSPECIFIED (6) Leukocytosis Current Visit: Yes Status: Acute Code(s): D72.829 - ELEVATED WHITE BLOOD CELL COUNT, UNSPECIFIED (7) Rash Current Visit: Yes Status: Acute Code(s): R21 - RASH AND OTHER NONSPECIFIC SKIN ERUPTION (8) Skin lesions Current Visit: Yes Status: Acute Code(s): L98.9 - DISORDER OF THE SKIN AND SUBCUTANEOUS TISSUE, UNSPECIFIED - Discharge Disposition: Home, Self-Care Condition: Stable Prescriptions: New Aspirin EC 325 mg [Ecotrin 325 MG] 325 mg PO DAILY 30 Days #30 tab Hydrocodone/Acetaminophen [Hydrocodone-Acetamin 5-325 mg] 1 tab PO Q4HPRN PRN 3 Days #18 tablet MDD 6 PRN Reason: Pain Methylprednisolone Packet [Medrol Dosepack] 4 mg PO UD #30 packet Daptomycin [Cubicin Rf] 1 g IV DAILY #14 Ertapenem Sodium [Ertapenem] 1 gm IV DAILY #14 Discontinued Prednisone 10 mg [Deltasone 10 mg] 10 mg PO UD Additional Instructions: Please follow up with Dr. Lazaro tomorrow 03/25/2024 @ 0800 for dressing changes and again on 03/31/2024 @ 1100 Follow up with: JUAN CANALES DPM [ACTIVE STAFF] - 03/31/24 11:00 am ()
[2024-03-25 20:08] LABS: Anti-MPO Antibodies <0.2 units (0.0-0.9); Anti-PR3 Antibodies <0.2 units (0.0-0.9); Cytoplasmic (C-ANCA) <1:20 titer (Neg:<1:20)
[2024-03-25 21:20] LABS: Perinuclear (P-ANCA) <1:20 titer (Neg:<1:20)
== END 2024-03-25 14:23 | disposition home or self-care (01) ==
LOC: ED 05:27 → MED SURG 09:16
PROVIDERS: ADMIT Internal Medicine; ATTEND Internal Medicine
DX: E11.42 Type 2 diabetes mellitus with diabetic polyneuropathy (principal); M86.9 Osteomyelitis, unspecified; E11.69 Type 2 diabetes mellitus with other specified complication; E11.621 Type 2 diabetes mellitus with foot ulcer; I73.9 Peripheral vascular disease, unspecified; I87.2 Venous insufficiency (chronic) (peripheral); L03.115 Cellulitis of right lower limb; D72.829 Elevated white blood cell count, unspecified; L98.9 Disorder of the skin and subcutaneous tissue, unspecified; L97.519 Non-pressure chronic ulcer of other part of right foot with unspecified severity; J44.9 Chronic obstructive pulmonary disease, unspecified; I25.10 Atherosclerotic heart disease of native coronary artery without angina pectoris; F10.90 Alcohol use, unspecified, uncomplicated; R60.0 Localized edema; R21 Rash and other nonspecific skin eruption; E78.5 Hyperlipidemia, unspecified; I10 Essential (primary) hypertension; M79.671 Pain in right foot; M10.9 Gout, unspecified; K59.00 Constipation, unspecified; R79.89 Other specified abnormal findings of blood chemistry; Z79.899 Other long term (current) drug therapy; Z86.31 Personal history of diabetic foot ulcer; Z95.0 Presence of cardiac pacemaker
CPT/HCPCS: 28810; 36415; 36573; 71045; 73620; 80053; 82947; 83036; 83516; 83605; 84550; 85025; 85027; 85379; 85652; 86037; 86141; 87040; 93926; 93971; 96360; 96374; 99223; 99284; A6260; G0378; Q3014; 99100; J1170; J1817; J2020; J2405; J2543; J2704; J2919; A9270-GY

== ENCOUNTER 2024-04-01 08:54 | Observation (INO) | payer MEDICARE ==
[2024-04-01] MEDS ORDERED: Lactated Ringers 1,000 ML IV ONE (09:12)
[2024-04-01 09:28] LABS: BASOPHIL % 0.7 % (0.2-1.2); Basophil (Absolute #) 0.06 x10^3/uL (0.01-0.08); Eosinophil (Absolute #) 0.08 x10^3/uL (0.04-0.54); Hematocrit 46.9 % (40.1-51.0); Hemoglobin 15.3 g/dL (13.7-17.5); IMMATURE GRAN # 0.03 x10^3u/L (0.001-0.031); IMMATURE GRAN % 0.4 % (0.001-0.429); Lymphocyte (Absolute #) 2.19 x10^3/uL (1.32-3.57); Lymphocytes % 27.3 % (21.8-53.1); Mean Cell Volume 98.5 fL (79.0-92.2); Mean Corpuscular Hemoglobin 32.1 pg (25.7-32.2); Mean Corpuscular Hgb Concent. 32.6 g/dL (32.3-36.5); Mean Platelet Volume 10.5 fL (9.4-12.4); Monocyte (Absolute #) 0.47 x10^3/uL (0.30-0.82); Monocytes % 5.9 % (5.3-12.2); Neutrophil % 64.7 % (34.0-67.9); Platelet Count 150 x10^3/uL (163-337); Red Blood Count 4.76 x10^6/uL (4.63-6.08); Red Cell Distribution Width 13.4 % (11.6-14.4)
[2024-04-01] MEDS: Lactated Ringers 1,000 ML IV SCH (09:33)
[2024-04-01] MEDS: Invanz *** 1 G in Sodium Chloride 100ML MINI-BAG PLUS 100 ML IV SCH (09:50)
[2024-04-01] MEDS: DAPTOmycin 600 MG in Sodium Chloride Flush 30 ML*** 12 ML IV SCH (09:50)
[2024-04-01 09:59] LABS: ALBUMIN 3.5 g/dL (3.5-5.0); ANION GAP 10.5 MEQ/L (5-15); BILIRUBIN,TOTAL 0.5 mg/dL (0.2-1.3); Calcium 9.1 mg/dL (8.4-10.2); Creatinine 1 1.27 mg/dL (0.66-1.25); EST GLOMERULAR FILTRATION RATE 56.8 ML/MIN; Potassium 4.3 mmol/L (3.5-5.1); Total Protein 6.3 g/dL (6.3-8.2)
[2024-04-01] MEDS ORDERED: DIPRIVAN 200 MG/20 ML IV ONE (10:24)
[2024-04-01] MEDS ORDERED: SUBLIMAZE 100 MCG/2 ML ONE ×2 (10:28→11:16)
[2024-04-01] MEDS ORDERED: Hydromorphone 1 mg/ml Injection ONE (11:16)
[2024-04-01] MEDS ORDERED: TYLENOL 325 MG PO PRN (13:03)
[2024-04-01] MEDS ORDERED: Zofran 4 MG/2 ML VIAL IV PRN (13:03)
[2024-04-01] MEDS ORDERED: NORCO 5/325 MG PO PRN (13:03)
[2024-04-01] MEDS ORDERED: Medrol Dosepack PO SCH (13:15)
--- NOTE | 2024-04-01 13:24 | PCM.HP ---
History of Present Illness - Chief Complaint Chief Complaint: new onset a-fib Date: 04/01/24 History of Present Illness: Mr.HALE WILDER is a 83 year old male with PMHX of DM with peripheral neuropathy, arrhythmia, COPD, arthritis, coronary artery disease (CABG, angioplasty and cardiac stents), obesity, and drinks 3 beers daily admitted. 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 Today he had another surgical procedure with Dr. Lazaro- podiatry and pt went into A-fib in OR. Anesthesia recommended admission as he has no record of this on his chart. Discussed with pt and he reports a hx of this dx by cardiology Dr. Fried in the past. he has been non- compliant with meds. He reports a recent Echo at [facility] as we will try to obtain the results. If he did not have one will order one here. Metoprolol started PO BID. He denies CP. Trend trops. Antibiotics per podiatry. Cardiology consulted. He denies any further c/o at this time and is rather irritable about being admitted. - Review of Systems Constitutional: No Fever, No Chills Eyes: No Symptoms Ears, Nose, & Throat: No Symptoms Respiratory: No Cough, No Short Of Breath Cardiac: No Chest Pain, No Edema, No Syncope Abdominal/Gastrointestinal: No Abdominal Pain, No Nausea, No Vomiting, No Diarrhea Genitourinary Symptoms: No Dysuria Musculoskeletal: No Back Pain, No Neck Pain Skin: Other (right lower extremity wrapped), No Rash Neurological: No Dizziness, No Focal Weakness, No Sensory Changes Psychological: No Symptoms Endocrine: No Symptoms Hematologic/Lymphatic: No Symptoms Immunological/Allergic: No Symptoms Medications & Allergies Home Medications: Home Medication List Aspirin EC 325 mg [Ecotrin 325 MG] 325 mg PO DAILY 30 Days #30 tab 03/25/24 [Rx Confirmed 04/01/24] Daptomycin [Cubicin Rf] 1 g IV DAILY #14 03/25/24 [Rx Confirmed 04/01/24] Ertapenem Sodium [Ertapenem] 1 gm IV DAILY #14 03/25/24 [Rx Confirmed 04/01/24] Hydrocodone/Acetaminophen [Hydrocodone-Acetamin 5-325 mg] 1 tab PO Q4HPRN PRN 3 Days #18 tablet MDD 6 03/25/24 [Rx Confirmed 04/01/24] Methylprednisolone Packet [Medrol Dosepack] 4 mg PO UD #30 packet 03/25/24 [Rx Confirmed 04/01/24] Allergies/Adverse Reactions: Allergies Allergy/AdvReac Type Severity Reaction Status Date / Time cefdinir Allergy Severe Rash Verified 04/01/24 09:18 cilastatin sodium Allergy Severe Hives Verified 04/01/24 09:18 [From Primaxin IV] vancomycin Allergy Severe Swelling Verified 04/01/24 09:18 of Face codeine Allergy Mild Verified 04/01/24 09:18 imipenem [From Primaxin IV] Allergy Mild Verified 04/01/24 09:18 meperidine HCl [From Demerol] Allergy Mild Verified 04/01/24 09:18 - Past Medical History Past Medical History: Yes Neurological History: Peripheral Neuropathy ENT History: No Pertinent History Cardiac History: Arrhythmia, Coronary Artery Disease, High Cholesterol, Hypertension, Myocardial Infarction ([place]) Respiratory History: Other, COPD Endocrine Medical History: Other Musculoskelatal History: Arthritis, Fractures, Rheumatoid Arthritis GI Medical History: Diverticulitis, Hernia, Other History: No Pertinent History Pyscho-Social History: Other Male Reproductive Disorders: No Pertinent History Comment: states stents x 3 and angioplasty, MRSA, clot that went to his bowel. restless legs. 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 neck and back fx. borderline diabetic. black lung - Past Surgical History Past Surgical History: Yes Neuro Surgical History: No Pertinent History Cardiac History: Angioplasty, CABG, Cardiac Catheterization, Cardiac Stent Respiratory Surgery: No Pertinent History GI Surgical History: Bowel Surgery, Colon Resection, Hernia Repair, Other Genitourinary Surgical Hx: No Pertinent History Musculskeletal Surgical Hx: Orthopedic Surgery Male Surgical History: No Pertinent History Other Surgical History: back surgery, several abdominal surgeries over 8 years,neck surgery Significant Family History: heart disease, hypertension - Social History Smoking Status: Former smoker Exposure to second hand smoke: No Alcohol: Daily Drug Use: marijuana - Social Determinants of Health Will the patient participate in the screening: Declined to provide - Physical Exam Vital Signs: Vital Signs - 24 hr Temp Pulse Resp BP Pulse Ox 04/01/24 09:33 97.0 F 77 16 127/71 97 04/01/24 09:20 97.0 F 77 16 127/71 97 General Appearance: no apparent distress, alert Neurologic Exam: alert, oriented x 3, cooperative, normal mood/affect, nml cerebellar function, nml station & gait, sensation nml, No motor deficits Eye Exam: PERRL/EOMI, eyes nml inspection Ears, Nose, Throat Exam: normal ENT inspection, TMs normal, pharynx normal, moist mucous membranes Neck Exam: normal inspection, non-tender, supple, full range of motion Respiratory Exam: normal breath sounds, lungs clear, No respiratory distress Cardiovascular Exam: normal heart sounds, normal peripheral pulses, irregular Gastrointestinal/Abdomen Exam: soft, normal bowel sounds, No tenderness, No mass Back Exam: normal inspection, normal range of motion, No CVA tenderness, No vertebral tenderness Extremity Exam: normal inspection, normal range of motion, pelvis stable, other (RLE wrapped by podiatry- post op procedure) Skin Exam: normal color, warm, dry, No rash Lymphatic Exam: No adenopathy Results - Labs Lab/Micro Results: Lab Results-Last 24 Hours 04/01/24 04/01/24 Range/Units 09:27 09:27 WBC 8.0 (4.23-9.07) x10^3/uL RBC 4.76 (4.63-6.08) x10^6/uL Hgb 15.3 (13.7-17.5) g/dL Hct 46.9 (40.1-51.0) % MCV 98.5 H (79.0-92.2) fL MCH 32.1 (25.7-32.2) pg MCHC 32.6 (32.3-36.5) g/dL RDW 13.4 (11.6-14.4) % Plt Count 150 L (163-337) x10^3/uL MPV 10.5 (9.4-12.4) fL Gran % 64.7 (34.0-67.9) % Immature Gran % (Auto) 0.4 (0.001-0.429) % Nucleat RBC Rel Count 0.0 (0.00-0.2) % Eos # (Auto) 0.08 (0.04-0.54) x10^3/uL Immature Gran # (Auto) 0.03 (0.001-0.031) x10^3u/L Absolute Lymphs (auto) 2.19 (1.32-3.57) x10^3/uL Absolute Monos (auto) 0.47 (0.30-0.82) x10^3/uL Absolute Nucleated RBC 0.00 (0.00-0.012) x10^3u/L Lymphocytes % 27.3 (21.8-53.1) % Monocytes % 5.9 (5.3-12.2) % Eosinophils % 1.0 (0.8-7.0) % Basophils % 0.7 (0.2-1.2) % Absolute Granulocytes 5.20 (1.78-5.38) x10^3/uL Basophils # 0.06 (0.01-0.08) x10^3/uL Sodium 137 (135-145) mmol/L Potassium 4.3 (3.5-5.1) mmol/L Chloride 105 (98-107) mmol/L Carbon Dioxide 26 (22-30) mmol/L Anion Gap 10.5 (5-15) MEQ/L BUN 32 H (9-20) mg/dL Creatinine 1.27 H (0.66-1.25) mg/dL Estimated GFR 56.8 ML/MIN Glucose 155 H (74-106) mg/dL Calcium 9.1 (8.4-10.2) mg/dL Total Bilirubin 0.50 (0.2-1.3) mg/dL AST 38 (17-59) U/L ALT 69 H (0-50) U/L Alkaline Phosphatase 82 (38-126) U/L Serum Total Protein 6.3 (6.3-8.2) g/dL Albumin 3.5 (3.5-5.0) g/dL Assessment/Plan (1) Atrial fibrillation Current Visit: Yes Status: Acute Assessment & Plan: - acute onset - tele - Labs, electrolytes, TSH - EKG - ECHO - Tele- cardilogy - trops x3 trend - Metoprolol 25mg BID PO - heparin VTE - Chest XR Code(s): I48.91 - UNSPECIFIED ATRIAL FIBRILLATION (2) Under care of podiatry surgeon Current Visit: Yes Status: Acute Assessment & Plan: - procedure in OR today with podiatry - RLE wrapped - Antibiotics per podiatry - narcotic pain control Code(s): Z78.9 - OTHER SPECIFIED HEALTH STATUS (3) BMI 32.0-32.9,adult Current Visit: Yes Status: Acute Assessment & Plan: - advised diet and exercise control VTE: Heparin Next of KIN: Tegan Alicea [phone] Code status: Full D/c plan: tomorrow Code(s): Z68.32 - BODY MASS INDEX [BMI] 32.0-32.9, ADULT
[2024-04-01] MEDS ORDERED: Docusate Sodium 100 MG PO PRN (13:41)
[2024-04-01 15:01] LABS: MAGNESIUM 2.1 mg/dL (1.6-2.3); TSH, 3RD Generation 0.515 mIU/L (0.470-4.680)
[2024-04-01] MEDS ORDERED: HUMALOG SQ PRN (16:15)
[2024-04-01] MEDS: HEPARIN 5000 UNITS/0.5 ML (HIGH RISK MED) SQ SCH (22:01)
[2024-04-01] MEDS: Lopressor 25MG Tab PO SCH (22:01)
--- NOTE | 2024-04-02 09:15 | OP ---
SURGERY DATE/TIME: 04/01/2024 1021 1100 PREOPERATIVE DIAGNOSES: 1) Osteomyelitis right foot, second toe. 2) Diabetes mellitus type 2. 3) Peripheral neuropathy. 4) Venous insufficiency. 5) Venous insufficiency ulceration. 6) Localized edema. POSTOPERATIVE DIAGNOSES: 1) Osteomyelitis right foot, second toe. 2) Diabetes mellitus type 2. 3) Peripheral neuropathy. 4) Venous insufficiency. 5) Venous insufficiency ulceration. 6) Localized edema. PROCEDURE: Repeat incision and drainage with delayed primary closure, right foot, as well application of Unna boot compression therapy to the bilateral lower extremity. SURGEON: Tejas Ramos MD VP TRANSPORTATION: None. ANESTHESIA: Monitored anesthesia care. HEMOSTASIS: Pressure dressing. ESTIMATED BLOOD LOSS: Approximately 2 mL. MATERIALS: 4-0 Monocryl, 3-0 nylon. INJECTABLES: None. INDICATIONS FOR PROCEDURE: The patient is a very pleasant 83-year-old male who presented to the hospital approximately 1 week ago with some concerns of cellulitis and venous insufficiency ulcerations to the bilateral lower extremity. On inspection, patient did have a wound to the second digit of the right foot which probed to bone. X-rays were taken demonstrating cortical lysis consistent with osteomyelitis. Patient was unable to sit still for an MRI. However, with the positive probe to bone and the clinical picture of sepsis, patient wished to proceed with the amputation. At this time, patient has progressed well. Pathology has returned with clean margins at the base of the proximal phalangeal base and we are wishing to proceed with closure of the wound, as well as continued treatment for the legs, which have been improving significantly. Patient understands at this time all risks, complications, and benefits of surgical intervention at this time including, but not limited to, infection, hematoma, seroma, possibility of delayed wound healing, possibility of failure of surgical intervention, possible need of further surgical intervention at a later date. No guarantees were provided as to the outcome of surgical intervention at this time, so at this time, we decided to proceed. DESCRIPTION OF PROCEDURE AND FINDINGS: Patient was brought to the operating room, placed on the operating room table in the supine position. At this time, anesthesia was administered and the patient was adequately sedated. The right lower extremity was prepped and draped in the typical sterile fashion and lowered onto the surgical field. At this time, a time-out was called, identifying patient factors. From that standpoint the sutures were removed from the site. Incision of the medial and lateral edge of the amputation site were performed, as well as removing any necrotic margins. From this standpoint, inspection of the wound took place. Any necrotic tissue or hematoma was evacuated until the wound surface was adequate. Following this, 3 L of sterile saline were utilized to flush the site under Pulsavac. Following this, 4-0 Monocryl was utilized to coapt the subcutaneous edges in a simple interrupted buried-type fashion and then, following this, a 3-0 nylon was utilized in a horizontal mattress-type fashion to coapt the skin edges in an everted-type fashion. Following this, a dressing was applied to the bilateral lower extremity for the patient's venous insufficiency consisting of iodine, Adaptic, 4 x 4, Kerlix, and Unna boots, which were applied with fan-fold technique and Coban for compression. Patient was then reversed from anesthesia and returned to the postoperative anesthesia care unit with vital signs stable and vascular status intact. Patient handled the anesthesia, as well as the procedure without significant complication. Postoperative orders as indicated in the patient's discharge chart.
[2024-04-02] MEDS ORDERED: ERTAPENEM SODIUM 1 GM IV SCH (10:00)
[2024-04-02] MEDS: Invanz *** 1 G in Sodium Chloride 100ML MINI-BAG PLUS 100 ML IV SCH (11:04)
[2024-04-02] MEDS: Ecotrin 325 MG PO SCH (11:04)
--- NOTE | 2024-04-02 12:01 | PCM.DS ---
Discharge Summary Date of Admission: 04/01/24 12:27 Date of Discharge: 04/02/24 Admitting Physician: KOTA PONCE MD Consults: Consults on Case 04/01/24 13:09 Consult Cardiology ROUTINE 04/01/24 13:15 Consult Podiatry ROUTINE Primary Care Provider: MARIANN CLAY Allergies Allergies cefdinir Allergy (Severe, Verified 04/01/24 09:18) Rash cilastatin sodium [From Primaxin IV] Allergy (Severe, Verified 04/01/24 09:18) Hives vancomycin Allergy (Severe, Verified 04/01/24 09:18) Swelling of Face codeine Allergy (Mild, Verified 04/01/24 09:18) imipenem [From Primaxin IV] Allergy (Mild, Verified 04/01/24 09:18) meperidine HCl [From Demerol] Allergy (Mild, Verified 04/01/24 09:18) Hospital Summary - Hospital Course Hospital Course: 04/01/24 Mr.HALE WILDER is a 83 year old male with PMHX of DM with peripheral neuropathy, arrhythmia, COPD, arthritis, coronary artery disease (CABG, angioplasty and cardiac stents), obesity, and drinks 3 beers daily admitted. 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 Today he had another surgical procedure with Dr. Lazaro- podiatry and pt went into A-fib in OR. Anesthesia recommended admission as he has no record of this on his chart. Discussed with pt and he reports a hx of this dx by cardiology Dr. Fried in the past. he has been non- compliant with meds. He reports a recent Echo at [facility] as we will try to obtain the results. If he did not have one will order one here. Metoprolol started PO BID. He denies CP. Trend trops. Antibiotics per podiatry. Cardiology consulted. He denies any further c/o at this time and is rather irritable about being admitted. 04/02/24 Pt resting in bed. He is ready to go home. He refused ECHO and EKG yesterday. He refused labs and EKG today. He states he needs to leave today as he needs to go home to take care of his . She apparently was brought in last night by his stepdaughter and slept in his room. She was taken back home by niraj this AM. He is non-compliant and was recently admitted for stopping all of his meds. His HR remains in A-fib. He states this is not new and he has a hx of this but not on any meds for this currently. He states his heart flutters some times so he knows he has a-fib. Discussed this is not in his medical hx. At this point I am unsure if he will be willing to take any meds I have sent in. Awaiting cardiology consult and recs. He denies CP, SOB, abd. pain, N/V/D. Cardiology evaluated pt and has no new recs at this time. - Vitals & Intake/Output Vital Signs: Vital Signs Temperature 97.4 F 04/02/24 11:52 Pulse Rate 91 H 04/02/24 11:52 Respiratory Rate 20 04/02/24 11:52 Blood Pressure 123/79 04/02/24 11:52 O2 Sat by Pulse Oximetry 94 L 04/02/24 11:52 Intake & Output: Intake & Output 03/30/24 03/31/24 04/01/24 04/02/24 11:59 11:59 11:59 11:59 Intake Total 2240 Output Total 1400 Balance 840 Weight 99.4 kg 101.3 kg - Lab Result Diagrams: 04/01/24 09:27 04/01/24 09:27 Lab Results-Last 24 Hrs: Lab Results-Last 24 Hours 04/01/24 04/01/24 04/01/24 Range/Units 14:12 14:12 17:11 POC Glucometer 144 H (74 to 106) mg/dL Magnesium 2.1 (1.6-2.3) mg/dL Troponin I 0.022 (0.000-0.033) ng/mL TSH 3rd Generation 0.515 (0.470-4.680) mIU/L 04/01/24 04/01/24 04/02/24 Range/Units 19:23 22:16 07:37 POC Glucometer 145 H 147 H (74 to 106) mg/dL Magnesium (1.6-2.3) mg/dL Troponin I 0.018 (0.000-0.033) ng/mL TSH 3rd Generation (0.470-4.680) mIU/L 04/02/24 Range/Units 11:41 POC Glucometer 126 H (74 to 106) mg/dL Magnesium (1.6-2.3) mg/dL Troponin I (0.000-0.033) ng/mL TSH 3rd Generation (0.470-4.680) mIU/L Micro Results-Entire Visit: Accuchecks Date 04/02/24 Date 04/02/24 Date 04/01/24 Time 11:51 Time 07:56 Time 17:16 - Procedures and Test Procedures and Tests throughout Hospitalization: Therapy Orders & Screens 04/01/24 11:19 EKG ONCE Comment: Diagnosis: SURGICAL WOUND 04/01/24 13:03 EKG REPEAT IN AM Comment: Diagnosis: SURGICAL WOUND Discharge Exam General Appearance: no apparent distress, alert, obese Neurologic Exam: alert, oriented x 3, cooperative, normal mood/affect, nml cerebellar function, sensation nml, No motor deficits Eye Exam: PERRL, EOMI, eyes nml inspection Ears, Nose, Throat Exam: normal ENT inspection, pharynx normal, moist mucous membranes Neck Exam: normal inspection, non-tender, supple, full range of motion Respiratory Exam: normal breath sounds, lungs clear, No respiratory distress Cardiovascular Exam: normal heart sounds, irregular Gastrointestinal/Abdomen Exam: soft, No tenderness, No mass Male Genitalia Exam: deferred Rectal Exam: deferred Back Exam: normal inspection, normal range of motion, No CVA tenderness, No vertebral tenderness Extremity Exam: normal inspection, normal range of motion Skin Exam: normal color, warm, dry Wound Assessment: Skin/Wound Assessment Wound/Incision Assessment Start: 04/01/24 13:16 Text: Status: Active Freq: Q6H Protocol: Document 04/02/24 08:00 RF (Rec: 04/02/24 11:52 RF [id number]) Wound Photo Photo Taken No Final Diagnosis/Problem List - Final Discharge Diagnosis/Problem (1) Atrial fibrillation Current Visit: Yes Status: Chronic Code(s): I48.91 - UNSPECIFIED ATRIAL FIBRILLATION (2) Under care of podiatry surgeon Current Visit: Yes Status: Acute Code(s): Z78.9 - OTHER SPECIFIED HEALTH STATUS (3) BMI 32.0-32.9,adult Current Visit: Yes Status: Acute Assessment & Plan: 1) Atrial fibrillation Current Visit: Yes Status: Acute Assessment & Plan: - acute onset - tele - Labs, electrolytes, TSH - EKG - ECHO - Tele- cardilogy - trops x2 negative, refused 3rd trop - Metoprolol 25mg BID PO - heparin VTE - Chest XR 04/02 - Continued a-fib controlled - BP stable - cardiology consult note reviwed: no new meds or recs provided. - Refused EKG x2 and echo - refused labs this AM - Will start Eliquis 5mg BID Code(s): I48.91 - UNSPECIFIED ATRIAL FIBRILLATION (2) Under care of podiatry surgeon Current Visit: Yes Status: Acute Assessment & Plan: - procedure in OR today with podiatry - RLE wrapped - Antibiotics per podiatry - narcotic pain control 04/02 - Per podiatry continue Op antibiotics and f/u tomorrow in office. Code(s): Z78.9 - OTHER SPECIFIED HEALTH STATUS (3) BMI 32.0-32.9,adult Current Visit: Yes Status: Acute Assessment & Plan: - advised diet and exercise control Code(s): Z68.32 - BODY MASS INDEX [BMI] 32.0-32.9, ADULT - Discharge Discharge Date: 04/02/24 Disposition: Home, Self-Care Condition: Stable Prescriptions: New Apixaban [Eliquis 2.5 mg Tablet] 5 mg PO BID 30 Days #60 tablet Metoprolol Tartrate 25 mg [Lopressor 25MG Tab] 25 mg PO BID 30 Days #60 tablet Aspirin EC 81 mg [Ecotrin 81 mg] 81 mg PO DAILY 30 Days #30 tablet Continue Hydrocodone/Acetaminophen [Hydrocodone-Acetamin 5-325 mg] 1 tab PO Q4HPRN PRN 3 Days #18 tablet MDD 6 PRN Reason: Pain Methylprednisolone Packet [Medrol Dosepack] 4 mg PO UD #30 packet Daptomycin [Cubicin Rf] 1 g IV DAILY #14 Ertapenem Sodium [Ertapenem] 1 gm IV DAILY #14 Discontinued Aspirin EC 325 mg [Ecotrin 325 MG] 325 mg PO DAILY 30 Days #30 tab Instructions: Atrial fibrillation - Discharge instructions Additional Instructions: LEAVE DRESSING INTACT PARTIAL WEIGHTBEARING TOLERATED WITH SURGICAL SHOE IN PLACE CONTINUE INFUSIONS THRU OUPT FOR REST OF PRESCRIBED COURSE- COME 3PM TOMORROW FOR YOUR INFUSION Call to make a follow up appointment with Dr. Fried this week. Follow up with: JUAN CANALES DPM [ACTIVE STAFF] - 04/03/24 8:00 am MARIANN CLAY MD [Primary Care Provider] - 04/09/24 9:15 am
[2024-04-02] MEDS: DAPTOmycin 600 MG in Sodium Chloride Flush 30 ML*** 12 ML IV SCH (13:25)
[2024-04-02 16:45] VITALS: BP 100/65; PULSE 65; RESP 16; TEMP 97.6; O2SAT 95
--- NOTE | 2024-04-02 17:30 | PCM.CONS ---
History of Present Illness - Date of Consult Consulting Drying Equipment Operator: QUETA VELA MD Requesting Provider: Attending Provider: KOTA PONCE MD Primary Care Provider: PCP: MARIANN CLAY - Consult Narrative Reason for Consult: concern for new onset afib HPI: Patient is a 83M w/ pMHx of CAD, ID, arthritis, afib who presents for evaluation of foot/toe debridement. During the procedure was noted to be in afib and thus cardiology was consulted as they were under the impression that this was a new finding. Patient reports a prior history of afib for the past 5 years or so. 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 He is already followed by an outpatient deputy director and in fact had an echo last week which per verbal report "looked ok". He is currently rate controlled at the time of my exam. cc:: The requesting physician will be sent a copy of the consult. Review of Systems - Review of Systems All systems: as per HPI - Past Medical History Past Medical History: Yes Neurological History: Peripheral Neuropathy ENT History: No Pertinent History Cardiac History: Arrhythmia, Coronary Artery Disease, High Cholesterol, Hypertension, Myocardial Infarction (ID) Respiratory History: Other, COPD Endocrine Medical History: Other Musculoskelatal History: Arthritis, Fractures, Rheumatoid Arthritis GI Medical History: Diverticulitis, Hernia, Other History: No Pertinent History Pyscho-Social History: Other Male Reproductive Disorders: No Pertinent History Comment: states stents x 3 and angioplasty, MRSA, clot that went to his bowel. restless legs. 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 neck and back fx. borderline diabetic. black lung - Past Surgical History Past Surgical History: Yes Neuro Surgical History: No Pertinent History Cardiac History: Angioplasty, CABG, Cardiac Catheterization, Cardiac Stent Respiratory Surgery: No Pertinent History GI Surgical History: Bowel Surgery, Colon Resection, Hernia Repair, Other Genitourinary Surgical Hx: No Pertinent History Musculskeletal Surgical Hx: Orthopedic Surgery Male Surgical History: No Pertinent History Other Surgical History: back surgery, several abdominal surgeries over 8 years,neck surgery Significant Family History: heart disease, hypertension - Social History Smoking Status: Former smoker Exposure to second hand smoke: No Alcohol: Daily Drug Use: marijuana - Social Determinants of Health Will the patient participate in the screening: Declined to provide Medications & Allergies Home Medications: Home Medication List Daptomycin [Cubicin Rf] 1 g IV DAILY #14 03/25/24 [Rx Confirmed 04/01/24] Ertapenem Sodium [Ertapenem] 1 gm IV DAILY #14 03/25/24 [Rx Confirmed 04/01/24] Hydrocodone/Acetaminophen [Hydrocodone-Acetamin 5-325 mg] 1 tab PO Q4HPRN PRN 3 Days #18 tablet MDD 6 03/25/24 [Rx Confirmed 04/01/24] Methylprednisolone Packet [Medrol Dosepack] 4 mg PO UD #30 packet 03/25/24 [Rx Confirmed 04/01/24] Apixaban [Eliquis 2.5 mg Tablet] 5 mg PO BID 30 Days #60 tablet 04/02/24 [Rx] Aspirin EC 81 mg [Ecotrin 81 mg] 81 mg PO DAILY 30 Days #30 tablet 04/02/24 [Rx] Metoprolol Tartrate 25 mg [Lopressor 25MG Tab] 25 mg PO BID 30 Days #60 tablet 04/02/24 [Rx] Allergies/Adverse Reactions: Allergies Allergy/AdvReac Type Severity Reaction Status Date / Time cefdinir Allergy Severe Rash Verified 04/01/24 09:18 cilastatin sodium Allergy Severe Hives Verified 04/01/24 09:18 [From Primaxin IV] vancomycin Allergy Severe Swelling Verified 04/01/24 09:18 of Face codeine Allergy Mild Verified 04/01/24 09:18 imipenem [From Primaxin IV] Allergy Mild Verified 04/01/24 09:18 meperidine HCl [From Demerol] Allergy Mild Verified 04/01/24 09:18 Exam - Vitals Vital Signs: Vital Signs - 24 hr Temp Pulse Resp BP Pulse Ox 04/02/24 16:00 97.6 F 65 16 100/65 95 04/02/24 11:52 97.4 F 91 H 20 123/79 94 L 04/02/24 08:00 97.6 F 56 L 20 147/70 94 L 04/02/24 03:55 97.6 F 71 20 133/71 94 L 04/01/24 23:31 97.2 F 72 20 132/81 95 04/01/24 20:00 97.6 F 95 H 18 136/62 95 General:: alert and oriented x 4, no acute distress HEENT: PERRLA, EOMI Cardiovascular Exam: irregular, other (no obvious m/r/g) Respiratory Exam: normal breath sounds SpO2: 95 Gastrointestinal/Abdomen Exam: other (obese, soft, nt) Extremity Exam: other (boot in place after debridement surgery) Neurologic: account services coordinator II-XII grossly intact, appropriate affect Results Vital Signs: Vital Signs - 24 hr Temp Pulse Resp BP Pulse Ox 04/02/24 16:00 97.6 F 65 16 100/65 95 04/02/24 11:52 97.4 F 91 H 20 123/79 94 L 04/02/24 08:00 97.6 F 56 L 20 147/70 94 L 04/02/24 03:55 97.6 F 71 20 133/71 94 L 04/01/24 23:31 97.2 F 72 20 132/81 95 04/01/24 20:00 97.6 F 95 H 18 136/62 95 Pain Assessment - Last Documented Pain Intensity [Right] 3 Pain Intensity 4 Intake and Output: Intake & Output 03/31/24 04/01/24 04/02/24 04/03/24 11:59 11:59 11:59 11:59 Intake Total 2240 120 Output Total 1400 300 Balance 840 -180 Weight 99.4 kg 101.3 kg LAB: I have reviewed the Labs in [facility]. Multi-Disciplinary Progress Notes: Multi-Disciplinary Progress Notes 04/02/24 04:09 Respiratory Note by Flor Godoy RT attempted to obtain ordered AM EKG. Pt refused EKG at this time. Initialized on 04/02/24 04:09 - END OF NOTE Assessment & Plan (1) Atrial fibrillation Current Visit: Yes Status: Chronic Assessment & Plan: afib/flutter- long standing history. Not acute. Is rate controlled. Prescribed eliquis but refuses to take any medications. Is already followed by an outpatient deputy director. No further inpatient w/u is warranted at this time. He can follow up with his primary deputy director. Code(s): I48.91 - UNSPECIFIED ATRIAL FIBRILLATION - Encounter Critical Care Time: No Encounter: "The entirety of this encounter was performed via Telemedicine using audio and visual "
[2024-04-02] MEDS ORDERED: ELIQUIS 2.5 MG TABLET PO SCH (22:00)
== END 2024-04-02 17:43 | disposition home or self-care (01) ==
LOC: SDC 08:54 → MED SURG 12:27
PROVIDERS: ADMIT Internal Medicine; ATTEND Internal Medicine
DX: I48.91 Unspecified atrial fibrillation (principal); E11.40 Type 2 diabetes mellitus with diabetic neuropathy, unspecified; M86.9 Osteomyelitis, unspecified; E11.621 Type 2 diabetes mellitus with foot ulcer; J44.9 Chronic obstructive pulmonary disease, unspecified; I25.10 Atherosclerotic heart disease of native coronary artery without angina pectoris; I10 Essential (primary) hypertension; E78.5 Hyperlipidemia, unspecified; F10.90 Alcohol use, unspecified, uncomplicated; R60.0 Localized edema; I87.2 Venous insufficiency (chronic) (peripheral); Z68.32 Body mass index [BMI] 32.0-32.9, adult; Z95.0 Presence of cardiac pacemaker; Z79.899 Other long term (current) drug therapy
CPT/HCPCS: 13160; 28005; 29580; 36415; 80053; 82947; 83735; 84443; 84484; 85025; 93005; 93268; G0378; J0878; J1170; J1335; J1644; J2704; J3010; A9270-GY

== ENCOUNTER 2024-06-02 20:20 | Emergency (ER) | payer MEDICARE, OTHER ==
--- NOTE | 2024-06-02 20:37 | ERPHSYRPT ---
- History of Present Illness Time Seen by Provider: 06/02/24 20:37 Historian: patient, family Exam Limitations: no limitations Physician History: This is a morbidly obese white male patient of Dr. Clay who presents to the emergency department by private vehicle escorted by his ex [id number] because of significant left flank pain that began yesterday per his report. Patient thinks he has a kidney stone. He has no prior history of a kidney stone. However his pain is significant and localized to the left flank region. Patient has had no vomiting but is nauseated. He denies chest pain and he denies shortness of breath. Patient has a history of atrial fibrillation. He had recently been prescribed anticoagulation therapy but patient is noncompliant is not sure he is taking that medicine. Patient has a history of coronary artery disease including myocardial infarction, stent placement and CABG. He also has a history of hyperlipidemia, hypertension, COPD, arthritis, and peripheral neuropathy. Timing/Duration: yesterday Quality: aching, throbbing Abdominal Pain Onset Location: flank (Left flank) Pain Radiation: no radiation, flank Severity of Pain-Max: moderate Severity of Pain-Current: moderate Associated Symptoms: nausea, No chest pain, No diarrhea, No shortness of breath, No vomiting Previous symptoms: no prior history, no recent treatment Allergies/Adverse Reactions: cefdinir Allergy (Severe, Verified 06/02/24 20:31) Rash cilastatin sodium [From Primaxin IV] Allergy (Severe, Verified 06/02/24 20:31) Hives vancomycin Allergy (Severe, Verified 06/02/24 20:31) Swelling of Face codeine Allergy (Mild, Verified 06/02/24 20:31) imipenem [From Primaxin IV] Allergy (Mild, Verified 06/02/24 20:31) meperidine HCl [From Demerol] Allergy (Mild, Verified 06/02/24 20:31) Hx Tetanus, Diphtheria Vaccination/Date Given: Yes Hx Influenza Vaccination/Date Given: Yes Hx Pneumococcal Vaccination/Date Given: Yes Travel Risk - International Travel Have you traveled outside of the country in past 3 weeks: No - Emerging Infectious Disease Are you exhibiting symptoms associated with any current EIDs: No - Review of Systems Constitutional: No Symptoms Eyes: No Symptoms Ears, Nose, & Throat: No Symptoms Respiratory: No Symptoms Cardiac: No Symptoms Abdominal/Gastrointestinal: No Symptoms Genitourinary Symptoms: Flank Pain (Left) Musculoskeletal: No No Symptoms Skin: No Symptoms Neurological: No Symptoms Psychological: No Symptoms Endocrine: No Symptoms Hematologic/Lymphatic: No Symptoms Immunological/Allergic: No Symptoms All Other Systems: Reviewed and Negative - Past Medical History Pertinent Past Medical History: Yes Neurological History: Peripheral Neuropathy ENT History: No Pertinent History Cardiac History: Arrhythmia, Coronary Artery Disease, High Cholesterol, Hypertension, Myocardial Infarction ([place]) Respiratory History: Other, COPD Endocrine Medical History: Other Musculoskeletal History: Arthritis, Fractures, Rheumatoid Arthritis GI Medical History: Diverticulitis, Hernia, Other History: No Pertinent History Psycho-Social History: Other Male Reproductive Disorders: No Pertinent History Other Medical History: states stents x 3 and angioplasty, MRSA, clot that went to his bowel. restless legs. 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 neck and back fx. borderline diabetic. black lung - Past Surgical History Past Surgical History: Yes Neuro Surgical History: No Pertinent History Cardiac: Angioplasty, CABG, Cardiac Catheterization, Cardiac Stent Respiratory: No Pertinent History Gastrointestinal: Bowel Surgery, Colon Resection, Hernia Repair, Other Genitourinary: No Pertinent History Musculoskeletal: Orthopedic Surgery Male Surgical History: No Pertinent History Other Surgical History: back surgery, several abdominal surgeries over 8 y ears,neck surgery Significant Family History: heart disease, hypertension - Social History Smoking Status: Former smoker Exposure to second hand smoke: No Alcohol Use: yes Drug Use: marijuana Patient Lives Alone: No - Social Determinants of Health Will the patient participate in the screening: Declined to provide - Nursing Vital Signs Nursing Vital Signs: Initial Vital Signs Temperature 97.4 F 06/02/24 20:32 Pulse Rate 76 06/02/24 20:32 Respiratory Rate 20 06/02/24 20:32 Blood Pressure 145/69 06/02/24 20:32 O2 Sat by Pulse Oximetry 94 L 06/02/24 20:32 Pain Scale Pain Intensity 0 - Physical Exam General Appearance: no apparent distress, alert, anxiety, obese Eye Exam: PERRL/EOMI, eyes nml inspection Ears, Nose, Throat Exam: normal ENT inspection, moist mucous membranes Neck Exam: normal inspection, non-tender, supple, full range of motion Respiratory Exam: normal breath sounds, lungs clear, airway intact, No chest tenderness, No respiratory distress Cardiovascular Exam: regular rate/rhythm, normal heart sounds, normal peripheral pulses Gastrointestinal/Abdomen Exam: soft, normal bowel sounds, No tenderness Rectal Exam: not done Back Exam: normal inspection, normal range of motion, CVA tenderness (Left s merlin), No vertebral tenderness Extremity Exam: normal inspection, normal range of motion, pelvis stable Neurologic Exam: alert, oriented x 3, cooperative, 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, sensation nml Skin Exam: normal color, warm, dry Lymphatic Exam: No adenopathy SpO2 Interpretation: normal O2 Delivery: Room Air - Course Nursing assessment & vital signs reviewed: Yes Ordered Tests: Active Orders 24 hr Category Date Time Status IV Insertion STAT Care 06/02/24 20:53 Active ABDOMEN AND PELVIS W/0 CONTRAS [CT] Stat Exams 06/02/24 20:53 Taken AMYLASE Stat Lab 06/02/24 21:10 Completed CBC W DIFF Stat Lab 06/02/24 21:10 Completed CMP Stat Lab 06/02/24 21:10 Completed LIPASE Stat Lab 06/02/24 21:10 Completed UA W/RFX UR CULTURE Stat Lab 06/02/24 21:06 Completed Medication Summary Generic Name Dose Route Start Last Admin Trade Name Freq PRN Reason Stop Dose Admin Sodium Chloride 1,000 mls @ 100 mls/hr 06/02/24 21:00 06/02/24 21:02 Sodium Chloride 0.9% 1000 Ml IV 07/02/24 20:59 100 mls/hr .Q10H MEME Administration Discontinued Medications Generic Name Dose Route Start Last Admin Trade Name Freq PRN Reason Stop Dose Admin Hydromorphone HCl 0.5 mg 06/02/24 20:53 06/02/24 21:02 Hydromorphone 1 Mg/1ml Inj IV 06/02/24 20:54 0.5 mg STAT ONE Administration Hydromorphone HCl Confirm 06/02/24 20:58 Hydromorphone 1 Mg/1ml Inj Administered 06/02/24 20:59 Dose 1 mg .ROUTE .STK-MED ONE Prochlorperazine Edisylate 5 mg 06/02/24 20:53 06/02/24 21:01 Prochlorperazine Edisylate 10 Mg/2 Ml Vial IV 06/02/24 20:54 5 mg STAT ONE Administration Prochlorperazine Edisylate Confirm 06/02/24 20:58 Prochlorperazine Edisylate 10 Mg/2 Ml Vial Administered 06/02/24 20:59 Dose 10 mg .ROUTE .[facility]-MED ONE Lab/Rad Data: Laboratory Result Diagrams 06/02/24 21:10 06/02/24 21:10 Laboratory Results 06/02/24 06/02/24 06/02/24 Range/Units 21:10 21:10 21:06 WBC 5.4 (4.23-9.07) x10^3/uL RBC 4.40 L (4.63-6.08) x10^6/uL Hgb 14.2 (13.7-17.5) g/dL Hct 43.0 (40.1-51.0) % MCV 97.7 H (79.0-92.2) fL MCH 32.3 H (25.7-32.2) pg MCHC 33.0 (32.3-36.5) g/dL RDW 12.8 (11.6-14.4) % Plt Count 161 L (163-337) x10^3/uL MPV 10.2 (9.4-12.4) fL Gran % 55.4 (34.0-67.9) % Immature Gran % (Auto) 0.4 (0.001-0.429) % Nucleat RBC Rel Count 0.0 (0.00-0.2) % Eos # (Auto) 0.38 (0.04-0.54) x10^3/uL Immature Gran # (Auto) 0.02 (0.001-0.031) x10^3u/L Absolute Lymphs (auto) 1.63 (1.32-3.57) x10^3/uL Absolute Monos (auto) 0.33 (0.30-0.82) x10^3/uL Absolute Nucleated RBC 0.00 (0.00-0.012) x10^3u/L Lymphocytes % 30.0 (21.8-53.1) % Monocytes % 6.1 (5.3-12.2) % Eosinophils % 7.0 (0.8-7.0) % Basophils % 1.1 (0.2-1.2) % Absolute Granulocytes 3.02 (1.78-5.38) x10^3/uL Basophils # 0.06 (0.01-0.08) x10^3/uL Sodium 139 (135-145) mmol/L Potassium 3.7 (3.5-5.1) mmol/L Chloride 104 (98-107) mmol/L Carbon Dioxide 26 (22-30) mmol/L Anion Gap 13.0 (5-15) MEQ/L BUN 25 H (9-20) mg/dL Creatinine 1.37 H (0.66-1.25) mg/dL Estimated GFR 51.8 ML/MIN Glucose 128 H (74-106) mg/dL Calcium 9.2 (8.4-10.2) mg/dL Total Bilirubin 0.40 (0.2-1.3) mg/dL AST 40 (17-59) U/L ALT 36 (0-50) U/L Alkaline Phosphatase 80 (38-126) U/L Serum Total Protein 7.0 (6.3-8.2) g/dL Albumin 4.0 (3.5-5.0) g/dL Amylase 83 (30-110) U/L Lipase 57 (23-300) U/L Urine Color Yellow (Yellow) Urine Appearance Clear (Clear) Urine pH 7.0 (4.6-8.0) Ur Specific [place] 1.015 (1.005-1.030) Urine Protein Negative (Negative) Urine Glucose (UA) Negative (Negative) mg/dL Urine Ketones Negative (Negative) Urine Blood Large A (Negative) Urine Nitrite Negative (Negative) Urine Bilirubin Negative (Negative) Urine Urobilinogen 1.0 A (0.2) mg/dL Ur Leukocyte Esterase Negative (Negative) U Hyaline Cast (Auto) NONE SEEN (0-2) /LPF Urine Microscopic RBC >100 A (0-5) /HPF Urine Microscopic WBC 0-2 (0-5) /HPF Ur Epithelial Cells None Seen (None Seen) /HPF Urine Bacteria None Seen (None Seen) /HPF Urine Culture Reflexed NO (NO) - Progress Progress: improved, pain not gone completely Progress Note: 06/02/24 22:03 My medical decision making of the assignment of moderate complexity to this patient's medical issue today is based on review of the patient's past medical history, review of patient medication list, review the patient drug allergy list, history present illness and physical findings on examination. The workup in this patient includes placement of intravenous line, infusion of normal sa line solution, infusion of Zofran and Dilaudid, CBC, CMP, amylase, lipase, urinalysis, and CT scan of the abdomen pelvis without contrast. Differential diagnosis includes but is not limited to diverticulitis, colitis, muscle skeletal pain, ureterolithiasis, aortic abnormality 06/02/24 22:50 I interpreted the patient's laboratory data results. Based on the laboratory data results, the patient has hematuria. No other acute, emergent findings present. CT scan of the abdomen pelvis without contrast was interpreted by the radiologist and I reviewed the impression. Impression states compared to similar study performed on 06/29/2018, there is a new 7 mm indeterminate noncalcified lingular nodule. There is stable bilateral renal cyst. There is small midline ventral hernia with herniated knuckle of transverse colon without complications. There is bilateral fatty inguinal hernias present. Nothing acute. Counseled pt/family regarding: lab results, diagnosis, need for follow-up, rad results Medical Desision Making - Independent Historian Additional History obtained from: Family - Diagnostic Testing Diagnostic test were ordered, analyzed, and reviewed by me: Yes Radiological Interpretation: Reviewed by me, Teleradiologist Report - Risk of complications Low Risk: Low risk of morbidity from additional dx testing or treatment - Departure Departure Disposition: Home Clinical Impression: Flank pain, Hematuria, Bilateral inguinal hernia, Ventral hernia, Pulmonary nodule, left Condition: Stable Critical Care Time: No Referrals: MARIANN CLAY MD [Primary Care Provider] - Follow up/PCP as directed Additional Instructions: Drink plenty of clear liquids before advancing your diet. Take all your medications as prescribed. Call your primary care provider tomorrow, 06/03/2024 to make arrangements for follow-up appointment to be evaluated in the next 5 to 7 days.
[2024-06-02 20:44] VITALS: TEMP 97.4
[2024-06-02] MEDS ORDERED: Compazine 10 MG/2 ML ONE (20:58)
[2024-06-02] MEDS ORDERED: Hydromorphone 1 mg/ml Injection ONE (20:58)
[2024-06-02] MEDS ORDERED: Sodium Chloride 0.9% 1000 ML 1,000 ML ONE (20:59)
[2024-06-02] MEDS: Compazine 10 MG/2 ML IV ONE (21:01)
[2024-06-02] MEDS: Sodium Chloride 0.9% 1000 ML 1,000 ML IV SCH (21:02)
[2024-06-02] MEDS: Hydromorphone 1 mg/ml Injection IV ONE (21:02)
[2024-06-02 21:13] LABS: Absolute Neutrophil Ct (ANC) 3.02 x10^3/uL (1.78-5.38); BASOPHIL % 1.1 % (0.2-1.2); Basophil (Absolute #) 0.06 x10^3/uL (0.01-0.08); Eosinophil (Absolute #) 0.38 x10^3/uL (0.04-0.54); Hemoglobin 14.2 g/dL (13.7-17.5); IMMATURE GRAN # 0.02 x10^3u/L (0.001-0.031); IMMATURE GRAN % 0.4 % (0.001-0.429); Lymphocyte (Absolute #) 1.63 x10^3/uL (1.32-3.57); Mean Cell Volume 97.7 fL (79.0-92.2); Mean Corpuscular Hemoglobin 32.3 pg (25.7-32.2); Mean Platelet Volume 10.2 fL (9.4-12.4); Monocyte (Absolute #) 0.33 x10^3/uL (0.30-0.82); Monocytes % 6.1 % (5.3-12.2); Neutrophil % 55.4 % (34.0-67.9); Platelet Count 161 x10^3/uL (163-337); Red Cell Distribution Width 12.8 % (11.6-14.4); White Blood Count 5.4 x10^3/uL (4.23-9.07)
[2024-06-02 21:14] LABS: Appearance Clear (Clear); Bilirubin Negative (Negative); Blood Large (Negative); Glucose, Urine Negative (Negative); Ketones Negative (Negative); Leukocyte Esterase Negative (Negative); Nitrite Negative (Negative); Protein,Urine Dip Negative (Negative); Specific Gravity 1.015 (1.005-1.030)
[2024-06-02 21:19] LABS: Bacteria None Seen /HPF (None Seen); Epithelial Cells None Seen /HPF (None Seen); Hyaline Casts NONE SEEN /LPF (0-2); RBC >100 /HPF (0-5); WBC 0-2 /HPF (0-5)
[2024-06-02 21:26] LABS: BILIRUBIN,TOTAL 0.4 mg/dL (0.2-1.3); Calcium 9.2 mg/dL (8.4-10.2); Creatinine 1 1.37 mg/dL (0.66-1.25); EST GLOMERULAR FILTRATION RATE 51.8 ML/MIN; Potassium 3.7 mmol/L (3.5-5.1)
[2024-06-02 23:02] VITALS: BP 159/77; PULSE 68; RESP 18; O2SAT 94
[2024-06-02] MEDS ORDERED: NORCO 5/325 MG ONE (23:20)
[2024-06-02] MEDS: NORCO 5/325 MG PO ONE (23:21)
--- NOTE | 2024-06-03 09:06 | XRAY ---
Indication: Left flank pain. Multiple contiguous axial images obtained through the abdomen and pelvis without contrast. Comparison: June 28, 2018. Lung bases now demonstrates 7 mm lingula subpleural noncalcified nodule and 4 mm right middle lobe calcified granuloma. Minimal bibasilar dependent atelectasis. No infiltrate or effusion. Heart not enlarged with chunky subcarinal calcified node. Noncontrasted stomach and bowel loops appear nonobstructed. Intact small bowel anastomosis. There is now mild scattered sigmoid diverticulosis without diverticulitis. No free fluid/air. Previous hepatic hemangioma not seen on this noncontrast exam. Stable tiny hepatic/splenic calcified granulomas, small bilateral renal cysts, and enlarged prostate gland. Remaining liver, gallbladder, pancreas, spleen, adrenal glands, kidneys, ureters, and bladder are unremarkable for noncontrast exam. There remains mild scattered aortoiliac calcifications without AAA. Osseous structures intact again with osteopenia, moderate multilevel thoracal lumbar degenerative spondylosis, and mild dextroscoliosis. Previous supraumbilical ventral hernia appears unchanged again with knuckle of transverse colon herniating without incarceration/obstruction. Stable small bilateral fatty inguinal hernias. Impression: 1. New 7 mm lingula indeterminant noncalcified nodule. Finding possibly granulomatous as there is evidence for old granulomatous disease elsewhere. 2. Chronic findings including bilateral renal cysts, colonic diverticulosis, ventral hernia with herniated transverse colon, bilateral fatty inguinal hernias, arteriosclerotic disease, and chronic bony findings.
== END 2024-06-02 23:28 | disposition home or self-care (01) ==
LOC: ED 20:20
DX: R10.9 Unspecified abdominal pain (principal); R31.9 Hematuria, unspecified; K40.20 Bilateral inguinal hernia, without obstruction or gangrene, not specified as recurrent; K43.9 Ventral hernia without obstruction or gangrene; R91.1 Solitary pulmonary nodule; R11.0 Nausea; E78.5 Hyperlipidemia, unspecified; I10 Essential (primary) hypertension; Z79.899 Other long term (current) drug therapy
CPT/HCPCS: 36000; 36415; 74176; 80053; 81001; 82150; 83690; 85025; 96374; 96375; 99284; J1170; A9270-GY